=== PATIENT | female | born 1940 | race Caucasian/White ===

== ENCOUNTER → 2024-04-13 12:04 | Outpatient (REF) | payer MEDICARE, OTHER, SELFPAY | LOC: WOUND 12:04 | PROVIDERS: ATTENDING PHYSICIAN Surgery; FAMILY PHYSICIAN Physician Assistant | DX: L97.322 Non-pressure chronic ulcer of left ankle with fat layer exposed (principal); C44.709 Unspecified malignant neoplasm of skin of left lower limb, including hip; F03.90 Unspecified dementia, unspecified severity, without behavioral disturbance, psychotic disturbance, mood disturbance, and anxiety; N18.4 Chronic kidney disease, stage 4 (severe); D64.9 Anemia, unspecified; I50.32 Chronic diastolic (congestive) heart failure | CPT/HCPCS: 88305; 11104; 11105; 99203 ==

== ENCOUNTER → 2024-04-21 10:33 | Outpatient (REF) | payer MEDICARE, OTHER, SELFPAY | LOC: WOUND 10:33 | PROVIDERS: ATTENDING PHYSICIAN Surgery; FAMILY PHYSICIAN Physician Assistant | DX: L97.322 Non-pressure chronic ulcer of left ankle with fat layer exposed (principal); F03.90 Unspecified dementia, unspecified severity, without behavioral disturbance, psychotic disturbance, mood disturbance, and anxiety; D64.9 Anemia, unspecified; I50.32 Chronic diastolic (congestive) heart failure | CPT/HCPCS: 11042 ==

== ENCOUNTER → 2024-04-28 10:36 | Outpatient (REF) | payer MEDICARE, SELFPAY | LOC: WOUND 10:36 | PROVIDERS: ATTENDING PHYSICIAN Surgery; FAMILY PHYSICIAN Physician Assistant | DX: L97.322 Non-pressure chronic ulcer of left ankle with fat layer exposed (principal) | CPT/HCPCS: 99213 ==

== ENCOUNTER → 2024-05-05 10:36 | Outpatient (REF) | payer MEDICARE, SELFPAY | LOC: WOUND 10:36 | PROVIDERS: ATTENDING PHYSICIAN Surgery; FAMILY PHYSICIAN Physician Assistant | DX: L97.322 Non-pressure chronic ulcer of left ankle with fat layer exposed (principal); F03.90 Unspecified dementia, unspecified severity, without behavioral disturbance, psychotic disturbance, mood disturbance, and anxiety; N18.4 Chronic kidney disease, stage 4 (severe); D64.9 Anemia, unspecified; I50.32 Chronic diastolic (congestive) heart failure | CPT/HCPCS: 11042 ==

== ENCOUNTER → 2024-05-19 13:27 | Outpatient (REF) | payer MEDICARE, SELFPAY | LOC: WOUND 13:27 | PROVIDERS: ATTENDING PHYSICIAN Surgery; FAMILY PHYSICIAN Physician Assistant | DX: L97.322 Non-pressure chronic ulcer of left ankle with fat layer exposed (principal); F03.90 Unspecified dementia, unspecified severity, without behavioral disturbance, psychotic disturbance, mood disturbance, and anxiety; N18.4 Chronic kidney disease, stage 4 (severe); D64.9 Anemia, unspecified; I50.32 Chronic diastolic (congestive) heart failure | CPT/HCPCS: 99212 ==

== ENCOUNTER 2024-07-01 18:35 | Emergency (ER) | payer MEDICARE, SELFPAY ==
[2024-07-01 18:41] VITALS: BP 181/74
[2024-07-01 19:02] VITALS: BMI 29.5
--- NOTE | 2024-07-01 19:08 | EDRN ---
Pt here because she has trouble urinating which started 10 days ago. Pt got a urinary test kit and it 'Mariella showed up positive for uti.' Pt has not been to her doctor. No fever/chills/cough, abd pain, new back pain. Pt wears depends and was
incontinent of urine last night. This morning, says pt was 'soaking wet this morning.' Pt has urinated since 'maybe once, maybe just a little bit.'
[2024-07-01 19:59] LABS: % Basophils 0.6 % (0-2); % Eosinophils 3.1 % (0-6); % Immature Granulocytes 0.2 % (0-0.5); % Lymphocytes 15.7 % (20.5-51.1); % Neutrophils 68.4 % (42.2-75.2); Absolute Eosinophils 0.2 10^3/uL (0-0.7); Absolute Lymphocytes 0.9 10^3/uL (1.2-3.4); Absolute Monocytes 0.7 10^3/uL (0.1-0.6); Absolute Neutrophils 3.7 10^3/uL (1.4-6.5); Hematocrit 38.2 % (37.0-47.0); Hemoglobin 12.5 g/dL (12.0-16.0); Mean Corp Hgb Conc. 32.7 g/dL (33.0-37.0); Mean Corpuscular Hgb 33.1 pg (27.0-31.0); Mean Corpuscular Volume 101.1 fL (81.0-99.0); Nucleated Red Blood Cells % 0 %; Platelet Count 169 10^3/uL (130-400); Red Blood Cell Count 3.78 10^6/uL (4.20-5.40); Red Cell Dist. Width 14.6 % (11.5-14.5); White Blood Cell Count 5.4 10^3/uL (4.8-10.8)
[2024-07-01 20:14] VITALS: BP 187/73
[2024-07-01 20:14] LABS: Blood Urea Nitrogen 38 mg/dl (7-17); Calcium 9.4 mg/dl (8.4-10.2); Carbon Dioxide 29 mmol/L (22-30); Chloride 100 mmol/L (98-107); Estimated Creatinine Clearance 21 ml/min; Glucose 96 mg/dl (70-99); Sodium 138 mmol/L (135-145); eGFR 29.02
--- NOTE | 2024-07-01 20:21 | ED.GENMED ---
History of Present Illness
General
Chief Complaint: Urinary Symptoms
Source: patient and spouse
Exam Limitations: none
Time Seen by Provider: 07/01/24 18:50
Nursing documentation reviewed up to this point in time: agreed with
History of Present Illness
History of Present Illness:
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 reports patient woke
up incontinent and then this morning had some difficulty urinating. They are concerned about UTI. Has reports patient only was able to dribble small amounts even prior to arrival and they did a [id number] urine dipstick which was positive
for UTI. Patient reports she has not been able to fully urinate normally since this morning. She denies any fever chills nausea vomiting. Denies any abdominal pain or back pain.
Past History
Past History
ED Past Medical History: Arrthythmia (Afib), CHF, GERD and HTN
ED Past Surgical History: Appendectomy, Cardiac (Ablation), Gynecological (Hysterectomy) and Orthopedic (Bilateral knee replacement)
Social History
Tobacco: Former smoker
Alcohol: Occasional
Drug: None
Personal: Other (Seperated)
Living: alone
Employment: Not employed
Family History
Family History: CAD
Review of Systems
Review of Systems
Allergies reviewed?: Yes
Other source history: family
All Other Systems: ROS reviewed and negative except as documented in HPI and ROS
Constitutional: Reports no symptoms; Denies fever, fatigue or chills
Respiratory: Reports no symptoms
Cardiac: Reports no symptoms
ABD/GI: Reports no symptoms; Denies abdominal pain, nausea or vomiting
: Reports dysuria and difficulty voiding
Musculoskeletal: Reports no symptoms
Skin: Reports no symptoms
Neurological: Reports no symptoms
Psychiatric: Reports no symptoms
Phy Exam
General Physical Exam
General Presentation: no apparent distress
General age: appears stated age
General Skin: warm and dry
General Habitus: normal
General Mental: alert
General Hydration: appears well hydrated
Cardiovascular Exam
Cardiovascular Exam: regular rate/rhythm, no murmur and normal peripheral pulses
Pulmonary Exam
Pulmonary Exam: lungs clear and no respiratory distress
Neurological Exam
Neurological Exam: alert and oriented x3
Musculoskeletal Exam
Musculoskeletal Exam: full ROM
Skin Exam
Skin Exam: normal color and warm/dry
Psychiatric Exam
Psychiatric Exam: normal mood/affect
Course
Orders/Labs/Results
Orders:
Orders
07/01/24 19:16
IV Insert/Care/Rem.- Treatment PRN
07/01/24 19:20
Bladder Scan- Treatment ONCE
07/01/24 19:51
Basic Metabolic Panel Urgent
Complete Blood Count/With Diff Urgent
07/01/24 20:11
Xbgjd-[id number]-[id number] Urgent
Potassium Urgent
07/01/24 20:12
Urinalysis Reflex To Culture Urgent
Date Specimen was Collected: 07/01/24
Time Specimen was Collected: 20:10
Abnormal Lab Results
07/01/24
19:51
RBC 3.78 L 10^6/uL
(4.20-5.40)
MCV 101.1 H fL
(81.0-99.0)
MCH 33.1 H pg
(27.0-31.0)
MCHC 32.7 L g/dL
(33.0-37.0)
RDW 14.6 H %
(11.5-14.5)
MPV 11.0 H fL
(7.4-10.4)
Absolute Lymphs (auto) 0.9 L 10^3/uL
(1.2-3.4)
Absolute Monos (auto) 0.7 H 10^3/uL
(0.1-0.6)
Lymphocytes % 15.7 L %
(20.5-51.1)
Monocytes % 12.0 H %
(1.7-9.3)
BUN 38 H mg/dl
(7-17)
Creatinine 1.7 H mg/dL
(0.6-1.0)
07/01/24 19:51
Vital Signs
Initial and Last Documented VS:
Initial Vital Signs
Temp Pulse Resp BP Pulse Ox
98.6 F 50 20 181/74 96
07/01/24 18:41 07/01/24 18:41 07/01/24 18:41 07/01/24 18:41 07/01/24 18:41
Last Documented Vital Signs
Temp Pulse Resp BP Pulse Ox
98.6 F 54 16 187/73 92
07/01/24 18:41 07/01/24 20:14 07/01/24 20:14 07/01/24 20:14 07/01/24 20:14
MDM/Problems Addressed
MDM/Problems Addressed:
Patient complains of difficulty urinating today and had an outpatient [id number] urinalysis strip which tested positive for UTI. She denies any nausea vomiting abdominal pain back pain fever chills. She is in no acute distress and
well-appearing abdomen soft nontender. She does have a history of renal disease and does follow with a supervisor pressing department in [place]. Patient's creatinine is 1.7 which is slightly increased from prior labs here. Potassium is clotted will recheck.
She is afebrile with normal white count.
Urinalysis pending patient was straight cathed .
bladder scan showed 130 mL of you are not retaining.
Care of patient at this time transferred to Vipul Hardy NP
ED Attending Note
-
Portions of this chart may have been created with voice recognition software.� Occasional wrong word or��sound alike� substitutions may have occurred due to the inherent limitations of voice recognition software.
Discharge Plan
Departure
Prescriptions:
No Action
donepezil 5 MG tablet
5 mg PO DAILY
trazodone 50 MG tablet
50 mg PO HS
amiodarone [Pacerone] 200 MG tablet
100 mg PO DAILY 0RF
atorvastatin 40 mg Tablet
40 mg PO QPM
carvedilol 12.5 mg Tablet
12.5 mg PO BID
cyanocobalamin (vitamin B-12) 1,000 mcg/mL Solution
1,000 mcg SC QMONTH
furosemide 20 mg Tablet
20 mg PO DAILY
acetaminophen [Tylenol Extra Strength] 500 mg Capsule
500 mg PO BIDPRN PRN (Reason: pain)
solifenacin 10 mg Tablet
10 mg PO DAILY
carboxymethylcellulose sodium Drops
1 drp BOTH EYES QPM
ferrous sulfate 15 mg iron (75 mg)/mL Syringe
15 mg PO DAILY
Interventions
Interventions:
*Risk Screen - Suicide Last Done: 07/01/24 18:41
*General Assessment Last Done: 07/01/24 18:41
*Neglect/Abuse Screening Last Done: 07/01/24 18:41
*ED- Fall Risk Assessment Last Done: 07/01/24 19:02
*ED COVID-19 Vaccine History Last Done: 07/01/24 19:02
ED-Female Genitourinary Assessment Last Done: 07/01/24 19:20
Discharge Date and Time
Print Language: SLOVENIAN
[2024-07-01 20:23] LABS: Urine Albumin 2+ (Neg - Trace); Urine Bilirubin Negative (Negative); Urine Character Cloudy (Clear); Urine Color Yellow; Urine Glucose Negative (Negative); Urine Ketone Negative (Negative); Urine Leukocyte 3+ (Negative); Urine Nitrite Negative (Negative); Urine Occult Blood 3+ (Negative); Urine Specific Gravity 1.015 (<1.030); Urine Urobilinogen Negative (Neg - 1+)
[2024-07-01 20:42] LABS: Urine White Cell >100 /HPF (0-5)
[2024-07-01 21:00] VITALS: BP 169/61
[2024-07-01 21:03] LABS: ALT (SGPT) 11 U/L (0-35); AST (SGOT) 18 U/L (14-36); Albumin 3.6 g/dl (3.5-5.0); Alkaline Phosphatase 87 U/L (38-126); Direct Bilirubin 0.3 mg/dl (0.0-0.4); Potassium 3.9 mmol/L (3.5-5.1); Total Bilirubin 0.5 mg/dl (0.2-1.3)
[2024-07-01] MEDS: KEFLEX 500 MG PO (21:28)
== END 2024-07-01 21:42 | disposition home or self-care (01) ==
LOC: EMR 18:35
PROVIDERS: Nurse Practitioner; EMERGENCY PHYSICIAN Emergency Medicine; FAMILY PHYSICIAN Family Medicine
DX: N39.0 Urinary tract infection, site not specified (principal); I13.0 Hypertensive heart and chronic kidney disease with heart failure and stage 1 through stage 4 chronic kidney disease, or unspecified chronic kidney disease; I50.9 Heart failure, unspecified; N18.9 Chronic kidney disease, unspecified; I48.91 Unspecified atrial fibrillation; Z87.891 Personal history of nicotine dependence; Z90.49 Acquired absence of other specified parts of digestive tract
CPT/HCPCS: 99283; 80048; 80076; 81003; 81015; 84132; 85025; 87077; 87086

== ENCOUNTER 2024-07-08 15:32 | Observation (INO) | payer MEDICARE, SELFPAY ==
[2024-07-08] VITALS (15 sets, daily range): BP systolic 120–212; BP diastolic 60–106; PULSE 48–59; BMI 26.9
--- NOTE | 2024-07-08 13:40 | ED.GENMED ---
History of Present Illness
General
Chief Complaint: Fainting/Passed Out
Source: patient
Time Seen by Provider: 07/08/24 13:30
History of Present Illness
History of Present Illness:
84-year-old female with past medical history of atrial fibrillation, CHF, CAD, known valvular disease, previous breast cancer, GERD presenting to the emergency department for evaluation of suspected syncopal episode or near syncopal episode that
occurred at home earlier today. Patient states that she does not recollect the event, unsure if she is ever passed out before but currently has no concerns other than states she feels very sleepy. Patient states that she has been on antibiotic for
the last 6 days but is not sure for what, based off of record review patient was just here 1 week ago and diagnosed with a urinary tract infection with known mild chronic kidney disease. Patient is denying any vomiting, bowel changes, current
urinary symptoms, chest pain or shortness of breath, headaches, visual disturbances, focal weakness or numbness.
Past History
Past History
ED Past Medical History: Arrthythmia (Afib), CAD, Cancer, CHF, CVA, GERD, HTN, Renal failure and Valvular disease
ED Past Surgical History: Appendectomy, Cardiac (Ablation), Gynecological (Hysterectomy) and Orthopedic (Bilateral knee replacement)
Social History
Tobacco: Former smoker
Alcohol: Occasional
Drug: None
Personal: (Seperated)
Living: with family
Employment: Not employed
Family History
Family History: CAD
Review of Systems
Review of Systems
All Other Systems: ROS reviewed and negative except as documented in HPI and ROS
Phy Exam
Physical Exam
Physical Exam:
GENERAL: Alert , in no apparent distress, Smiling and pleasant but does seem slightly confused
EYE: pupils equal and reactive, clear conjunctiva
NECK: Supple
ENT: o/p clr, mmm.
CARDIAC: Regular rate and rhythm, systolic murmur left sternal border.
LUNGS: Clear breath sounds bilaterally, no acute respiratory distress, no wheezes/rales/rhonchi
ABDOMEN: Soft, without focal tenderness, no r/g, no cvat
NEUROLOGICAL: Alert and oriented, no focal neuro deficits
SKIN: Warm and dry, skin intact.
MUSCULOSKELETAL: No edema, venous stasis skin hyperpigmentation
PSYCH: Normal and appropriate interaction.
Scores
Heart Failure Risk
Heart Failure Risk Score: Not Applicable
Heart Score for Chest Pain Patients
STEMI patient?: Not applicable
Withdrawal Assessment of Alcohol
Withdrawal Assessment Completed?: Not applicable
Course
Orders/Labs/Results
Orders:
Orders
07/08/24 13:31
EKG [Electrocardiogram (*1)] Urgent
Reason for Study: Syncope
EKG- Treatment ONCE
07/08/24 13:38
Orthostatic VS- Treatment ONCE
07/08/24 13:39
CT Head W/o Iv Contrast Urgent
Comment:
Reason For Exam: syncope, questionable head injury
07/08/24 13:46
Complete Blood Count/With Diff Urgent
Comprehensive Metabolic Panel Urgent
Magnesium Urgent
NT-proBNP Urgent
Troponin I Urgent
07/08/24 Dinner
Cholesterol Lowering
At Your Request: Limited, Terrazzo Grinder Required
Fluid Restriction: 1800 mL/day (60 oz)
Cholesterol Lowering: Sodium, 2 Gram
07/08/24 15:08
Code Status As Directed
Resuscitation Status: Do not resuscitate
Reached after discussion with pt or family/Healthcare POA: Yes
Bisacodyl [Dulcolax] 10 mg RECTAL [id number] PRN
Docusate W/Senna [Senokot-S] 1 tablet PO BIDPRN PRN
Polyethylene Glycol Powder [Miralax] 17 grams PO DAILYPRN PRN
Activity As Directed
Activity Level: As Tolerated
With Assistance
Intake/ Output As Directed
Frequency: Per unit guidelines
Vital Signs As Directed
Frequency: Per unit guidelines
Weight As Directed
Frequency: Daily
07/08/24 15:09
DNR Bracelet Application ONCE
07/08/24 15:10
DX Deep Vein Thrombosis Video Routine
07/08/24 15:13
Admit/Transfer Patient As Directed
Co-Sign Provider:
Level of Care: Observation services
Assign to:: Telemetry
Physician / Group: Hospitalist: Leonarda
Diagnosis: Syncope
Reason for Telemetry: Syncope
Date to Stop Telemetry: 07/10/24
Time to Stop Telemetry: 11:00
PRN Pain Medication Management As Directed
May give lesser potent ordered pain med per pt: Yes
preference::
Protocol:: Medication orders for pain may be administered in a
manner that supports deferring to patient preference
when the pt is:
- Requesting an ordered lesser potent pain medication.
Least to most potent pain medications are defined
as: acetaminophen < NSAID < tramadol < opioids
(morphine, oxycodone, hydromorphone).
- Requesting a lesser dose of the same medication IF
ORDERED.
- Requesting a less intrusive route of administration
if both routes are prescribed by the provider (PO <
IV).
07/08/24 15:19
CARDIOLOGY CONSULT Routine
Consulting Provider: Eddie Fang
Was physician already notified: Yes
Reason for consult: syncope
07/08/24 15:24
Furosemide [Lasix] 20 mg IV ONCE ONE
07/08/24 15:26
Echo 2D MMode Color/Doppler Routine
Reason for Study: syncope
HydrALAZINE [Apresoline] 10 mg IV Q6HPRN PRN
07/08/24 16:00
Heparin 5,000 units SC Q8
07/09/24 06:00
Basic Metabolic Panel IN AM
Complete Blood Count/With Diff IN AM
07/10/24 11:00
DC Protocol for Telemetry ONCE
Abnormal Lab Results
07/08/24
13:46
RBC 3.50 L 10^6/uL
(4.20-5.40)
Hgb 11.9 L g/dL
(12.0-16.0)
Hct 35.5 L %
(37.0-47.0)
MCV 101.4 H fL
(81.0-99.0)
MCH 34.0 H pg
(27.0-31.0)
RDW 14.6 H %
(11.5-14.5)
MPV 10.5 H fL
(7.4-10.4)
Absolute Lymphs (auto) 1.0 L 10^3/uL
(1.2-3.4)
Absolute Monos (auto) 0.7 H 10^3/uL
(0.1-0.6)
Immature Gran % 0.6 H %
(0-0.5)
Lymphocytes % 18.9 L %
(20.5-51.1)
Monocytes % 12.6 H %
(1.7-9.3)
Carbon Dioxide 32 H mmol/L
(22-30)
BUN 29 H mg/dl
(7-17)
Creatinine 1.4 H mg/dL
(0.6-1.0)
07/08/24 13:46
07/08/24 13:46
Vital Signs
Initial and Last Documented VS:
Initial Vital Signs
Pulse Resp BP Pulse Ox
50 16 185/77 91
07/08/24 13:33 07/08/24 13:33 07/08/24 13:33 07/08/24 13:33
Last Documented Vital Signs
Temp Pulse Resp BP Pulse Ox
97.6 F 51 12 212/69 96
07/08/24 13:40 07/08/24 15:30 07/08/24 15:30 07/08/24 15:30 07/08/24 15:30
MDM/Problems Addressed
Differential Diagnosis Includes:
Orthostasis, vagal event, cardiac dysrhythmia, electrolyte derangement, worsening renal function, medication side effects
MDM/Problems Addressed:
84-year-old female presenting to the emergency department for evaluation of reported syncopal episode versus near syncopal episode earlier today. Patient without any specific concerns here, unable to recall the events leading up to the syncope but
states otherwise feels well currently. Patient is hemodynamically stable and in no acute distress. Will check labs, CT of the head, keep patient on telemetry. Given her age combined with chronic medical conditions and presenting symptoms will
admit for further evaluation and telemetry as well as cardiac consultation.
Chronic conditions affecting care: CAD and Arrhythmia
*Radiology
Radiology exam reviewed: radiology read reviewed
*Pulse Oximetry
Patient hypoxic: no
*EKG
Heart Rate: 50
Rate: bradycardiac
Rhythm: sinus
Interval: long QT
Ischemia: no ischemia
*Razor Grinder Interpretation
Rate: bradycardiac
Rhythm: sinus
*Critical Care Note
Total Time (30-74mins, 75-104mins- exclusive of procedures): Not Applicable
Data Reviewed
Review of Other/Old Records Reveals: Labs and Records
Patient Management
Discussion with other providers: Hospitalist
Escalation/DeEscalation of care consider admission/obs:
Patient remains hemodynamically stable. Labs reveal a very mild anemia. Patient's creatinine improved from 1 week ago. BNP elevated however appears to be right around patient's baseline. CT of the head shows age-related changes. Given her age
combined with chronic medical condition as well as her chronic medications and presenting symptom of syncope we will plan for admission for continued telemetry and cardiac consultation. Hospitalist team aware and accepts for continued evaluation
and treatment
ED Attending Note
-
Portions of this chart may have been created with voice recognition software.� Occasional wrong word or��sound alike� substitutions may have occurred due to the inherent limitations of voice recognition software.
Discharge Plan
Departure
Patient Disposition: Admit
Date of Disposition: 07/08/24
Time of Disposition: 14:23
Presentation/result/management discussed w/ accepting MD/DO: Hospitalist
Discharge Problem:
Syncope, Long QT interval, CKD (chronic kidney disease)
Interventions
Interventions:
*Risk Screen - Suicide Last Done: 07/08/24 13:42
*General Assessment Last Done: 07/08/24 13:42
*Neglect/Abuse Screening Last Done: 07/08/24 13:42
*ED COVID-19 Vaccine History Last Done: 07/08/24 13:44
[2024-07-08 13:53] LABS: % Basophils 0.6 % (0-2); % Eosinophils 3.7 % (0-6); % Immature Granulocytes 0.6 % (0-0.5); % Lymphocytes 18.9 % (20.5-51.1); % Monocytes 12.6 % (1.7-9.3); % Neutrophils 63.6 % (42.2-75.2); Absolute Eosinophils 0.2 10^3/uL (0-0.7); Absolute Monocytes 0.7 10^3/uL (0.1-0.6); Absolute Neutrophils 3.3 10^3/uL (1.4-6.5); Hematocrit 35.5 % (37.0-47.0); Hemoglobin 11.9 g/dL (12.0-16.0); Mean Corp Hgb Conc. 33.5 g/dL (33.0-37.0); Mean Corpuscular Volume 101.4 fL (81.0-99.0); Mean Platelet Volume 10.5 fL (7.4-10.4); Nucleated Red Blood Cells % 0 %; Platelet Count 147 10^3/uL (130-400); Red Cell Dist. Width 14.6 % (11.5-14.5); White Blood Cell Count 5.1 10^3/uL (4.8-10.8)
[2024-07-08 14:07] LABS: ALT (SGPT) 11 U/L (0-35); AST (SGOT) 20 U/L (14-36); Albumin 3.8 g/dl (3.5-5.0); Alkaline Phosphatase 66 U/L (38-126); Blood Urea Nitrogen 29 mg/dl (7-17); Calcium 9.2 mg/dl (8.4-10.2); Carbon Dioxide 32 mmol/L (22-30); Chloride 102 mmol/L (98-107); Estimated Creatinine Clearance 22 ml/min; Glucose 97 mg/dl (70-99); Magnesium 2.2 mg/dl (1.6-2.3); Potassium 3.9 mmol/L (3.5-5.1); Sodium 143 mmol/L (135-145); Total Bilirubin 0.6 mg/dl (0.2-1.3); Total Protein 6.4 g/dl (6.3-8.2); eGFR 36.64
[2024-07-08 14:17] LABS: NT-proBNP 4230 pg/ml; Troponin I < 0.012 ng/ml
--- NOTE | 2024-07-08 15:27 | HPS.HSE ---
Family Physician
-
Family Physician: Anshu Kate
Chief Complaint
-
Syncope
History of Present Illness
Ms. Murray is an 84-year-old female with a medical history of paroxysmal A-fib (status post ablation, on amiodarone, not on anticoagulation), subdural hematoma (10/2020), CKD stage IV, breast cancer (right sided, status post radiation and chemo
2000), combined systolic and diastolic heart failure, chronic lower extremity edema, dementia, and recent urinary tract infection (seen in [place] ED 07/01/2024, discharged on 7 days of Keflex) who presents after a possible syncopal episode at
home. HPI was supplemented by the patient's who is at bedside. He reports that the patient was unusually difficult to arouse from her lounge chair at lunchtime. He is not sure how long she was unconscious but reports that she sat down in
her chair after exercising on her stationary bike this morning and then showering. The patient does not recall what happened after she sat down in her chair, but reports awaking to EMS questioning her. She denies headache, blurry vision,
dizziness, trouble breathing, or chest pain. She is currently back to her baseline mental status.
In the ED, she was mildly bradycardic with a heart rate around 50, hypertensive with initial BP of 185/77, and saturating around 92% on room air. EKG shows sinus bradycardia with first-degree AV block and prolonged QTc. Labs were significant for
mild anemia with a hemoglobin of 11.9 and MCV 101 which clears close to her baseline, creatinine of 1.4 which appears close to her baseline, and undetectable troponin, and a BNP of 4230. CT imaging of her head shows no acute pathology but does show
severe chronic neurodegenerative disease consistent with probable Alzheimer's dementia. She is being admitted for further evaluation and management of suspected syncope.
Medical History
Past Medical History
Past Medical History: Reports Arrhythmia (A-fib status post ablation, not on anticoagulation), Cancer (Right-sided breast cancer), CHF (Combined systolic and diastolic heart failure), CVA (Subdural hematoma status postcraniotomy) and Renal Failure
(CKD stage IV)
Past Surgical History: Reports Brain (Craniotomy) and Orthopedic (Bilateral knee replacements)
Social History
Unable to obtain full social history at this time due to: Dementia
Tobacco: Non-smoker
Alcohol: None
Drug: None
Personal:
Living: With Family
Family History
Family History: Not pertinent
Allergies / Home Medications
Allergies reflects when Allergies were last updated in [facility].
Home Medications with original date entered in [facility]
Allergy/Medication List:
Allergies
Allergy/AdvReac Type Severity Reaction Status Date / Time
Sulfa (Sulfonamide Allergy Unknown hives Verified 07/01/24 18:44
Antibiotics)
amlodipine [From [facility]] Allergy Swelling Verified 07/01/24 18:44
prednisone [Prednisone] Allergy eye Verified 07/01/24 18:44
swelling
mold Allergy Swelling Uncoded 07/01/24 18:44
pollen, trees Allergy vertigo, Uncoded 07/01/24 18:44
tired
Home Medications
donepezil 5 mg tablet 5 mg PO DAILY Neurological Condition 06/19/20
trazodone 50 mg tablet 50 mg PO HS 06/19/20
amiodarone 200 mg tablet (Pacerone) 100 mg (1/2 x 200 mg) PO DAILY 06/21/20
acetaminophen 500 mg capsule 500 mg PO BID 07/01/24
atorvastatin 40 mg tablet 40 mg PO QPM 07/01/24
carboxymethylcellulose sodium 1 drp BOTH EYES QPM 07/01/24
carvedilol 12.5 mg tablet 12.5 mg PO BID 07/01/24
cephalexin 500 mg capsule 500 mg PO BID 7 days #14 caps 07/01/24
cyanocobalamin (vitamin B-12) 1,000 mcg/mL injection solution 1,000 mcg SC QMONTH 07/01/24
furosemide 20 mg tablet 20 mg PO DAILY 07/01/24
solifenacin 10 mg tablet 10 mg PO DAILY 07/01/24
gabapentin 300 mg capsule 300 mg PO HS 07/08/24
iron succinyl-protein complex 40 mg/15 mL oral liquid (Ferrevenkatas IPS) 40 mg PO Q48H 07/08/24
Review of Systems
-
History Source: Patient
A 12 point ROS was completed and negative except as noted: Yes
Musculoskeletal: Reports Edema (Bilateral lower extremities)
Physical Exam
Vital Signs
Vital Signs
Temp Pulse Resp BP Pulse Ox
97.6 F 52 14 185/77 92
07/08/24 13:40 07/08/24 13:40 07/08/24 13:40 07/08/24 13:33 07/08/24 13:40
Physical Exam
General: No Apparent Distress
Laboratory Results
-
07/08/24 13:46
07/08/24 13:46
Laboratory Results
Total Bilirubin 0.6 mg/dl (0.2-1.3) 07/08/24 13:46
AST 20 U/L (14-36) 07/08/24 13:46
ALT 11 U/L (0-35) 07/08/24 13:46
Alkaline Phosphatase 66 U/L (38-126) 07/08/24 13:46
Troponin I < 0.012 ng/ml 07/08/24 13:46
Impression/Plan
-
General: No Apparent Distress, Comfortable and Conversant
HEENT: Moist mucous membranes, sclera anicteric
Respiratory: Clear and Non Labored Respirations
Cardiac: S1/S2 and Regular Rhythm; heart rate around 50, no Rub or Gallop
GI: Soft, Non Tender, Non Distended and Normal Bowel Sounds
Musculoskeletal: Bilateral lower extremity edema, no deformity
Skin: Warm and dry
: Pure wick in place
Neuro: Awake, Alert, Nonfocal/grossly intact
Psych: Calm and cooperative
Ms. Murray is an 84-year-old female with a medical history of paroxysmal A-fib (status post ablation, on amiodarone, not on anticoagulation), subdural hematoma (10/2020), CKD stage IV, breast cancer (right sided, status post radiation and chemo
2000), combined systolic and diastolic heart failure, chronic lower extremity edema, dementia, and recent urinary tract infection (seen in [place] ED 07/01/2024, discharged on 7 days of Keflex) who presents after a possible syncopal episode at
home. HPI was supplemented by the patient's who is at bedside. He reports that the patient was unusually difficult to arouse from her lounge chair at lunchtime. He is not sure how long she was unconscious but reports that she sat down in
her chair after exercising on her stationary bike this morning and then showering. The patient does not recall what happened after she sat down in her chair, but reports awaking to EMS questioning her. She denies headache, blurry vision,
dizziness, trouble breathing, or chest pain. She is currently back to her baseline mental status and says she feels hungry since she missed lunch.
In the ED, she was mildly bradycardic with a heart rate around 50, hypertensive with initial BP of 185/77, and saturating around 92% on room air. EKG shows sinus bradycardia with first-degree AV block and prolonged QTc. Labs were significant for
mild anemia with a hemoglobin of 11.9 and MCV 101 which clears close to her baseline, creatinine of 1.4 which appears close to her baseline, and undetectable troponin, and a BNP of 4230. CT imaging of her head shows no acute pathology but does show
severe chronic neurodegenerative disease consistent with probable Alzheimer's dementia. She is being admitted for further evaluation and management of suspected syncope.
Suspected syncope:
- Unclear if this was actually a syncopal event, as she was found unresponsive in her lounge chair and very difficult to arouse, and reported baseline mental status after waking, patient does not remember what happened after sitting in her chair
- She is mildly bradycardic, will hold carvedilol for now, continue amiodarone
- Continue telemetry monitoring
- Echocardiogram
- Blood pressure control, does not appear to be on antihypertensive regimen other than carvedilol, also on Lasix for heart failure
- Appreciate cardiology evaluation
Hypertensive emergency:
-Presented with possible syncopal event, blood pressure currently uncontrolled
- Not on antihypertensive regimen at home other than carvedilol which we are holding for mild bradycardia
- Will give a dose of IV hydralazine and add scheduled p.o. hydralazine, continue additional IV hydralazine as needed for SBP greater than 170
- Appreciate cardiology input
Combined systolic and diastolic heart failure:
- Acute on chronic
- Does appear volume overloaded, will give a dose of IV Lasix monitor response
- Monitor I's and O's and daily weights
- Currently holding beta-blockade due to mild bradycardia, can restart home carvedilol as able
- Afterload reduction with hydralazine which is being started at the time of this admission, does not appear to be on afterload reducing agents as outpatient
- Check echocardiogram
- Further recommendations per cardiology
Paroxysmal A-fib:
- Continue home amiodarone, holding beta-trinidad due to mild bradycardia
- Not on anticoagulation due to history of subdural hematoma
DVT prophylaxis: Subcu heparin
CODE STATUS: DNR, confirmed with patient and her
[2024-07-08] MEDS: APRESOLINE 10 MG IV (16:25)
[2024-07-08] MEDS: APRESOLINE PO (18:55)
[2024-07-08] MEDS: HEPARIN SC (18:55)
[2024-07-08] MEDS: LASIX 40 MG IV (20:12)
[2024-07-08] MEDS: APRESOLINE 25 MG PO (21:05)
[2024-07-08] MEDS: TYLENOL 500 MG PO (21:05)
[2024-07-08] MEDS: KEFLEX 500 MG PO (21:05)
[2024-07-08] MEDS: LIPITOR 40 MG PO (21:05)
[2024-07-08] MEDS: NEURONTIN 300 MG PO (21:05)
[2024-07-08] MEDS: DESYREL 50 MG PO (21:05)
[2024-07-08] MEDS: HEPARIN 5000 UNITS SC (23:57)
[2024-07-09] VITALS (9 sets, daily range): BP systolic 101–207; BP diastolic 45–92; PULSE 56; O2SAT 94
[2024-07-09] MEDS: REFRESH CELLUVISC GEL BOTH EYES (06:11)
[2024-07-09 07:32] LABS: % Basophils 0.6 % (0-2); % Eosinophils 3.7 % (0-6); % Immature Granulocytes 0.6 % (0-0.5); % Lymphocytes 12.7 % (20.5-51.1); % Neutrophils 70.4 % (42.2-75.2); Absolute Eosinophils 0.2 10^3/uL (0-0.7); Absolute Lymphocytes 0.7 10^3/uL (1.2-3.4); Absolute Monocytes 0.6 10^3/uL (0.1-0.6); Absolute Neutrophils 3.6 10^3/uL (1.4-6.5); Hematocrit 38.3 % (37.0-47.0); Hemoglobin 12.4 g/dL (12.0-16.0); Mean Corp Hgb Conc. 32.4 g/dL (33.0-37.0); Mean Corpuscular Hgb 32.9 pg (27.0-31.0); Mean Corpuscular Volume 101.6 fL (81.0-99.0); Mean Platelet Volume 10.5 fL (7.4-10.4); Nucleated Red Blood Cells % 0 %; Platelet Count 158 10^3/uL (130-400); Red Blood Cell Count 3.77 10^6/uL (4.20-5.40); Red Cell Dist. Width 14.6 % (11.5-14.5); White Blood Cell Count 5.1 10^3/uL (4.8-10.8)
[2024-07-09] MEDS: TYLENOL 500 MG PO ×2 (07:59→19:33)
[2024-07-09] MEDS: DETROL LA 4 MG PO (07:59)
[2024-07-09] MEDS: APRESOLINE 25 MG PO ×3 (08:00→21:08)
[2024-07-09] MEDS: PACERONE 100 MG PO (08:00)
[2024-07-09] MEDS: HEPARIN 5000 UNITS SC ×3 (08:00→23:13)
[2024-07-09] MEDS: KEFLEX 500 MG PO ×2 (08:00→19:34)
[2024-07-09] MEDS: APRESOLINE 10 MG IV (08:01)
[2024-07-09 08:21] LABS: Blood Urea Nitrogen 28 mg/dl (7-17); Calcium 9.1 mg/dl (8.4-10.2); Carbon Dioxide 33 mmol/L (22-30); Chloride 101 mmol/L (98-107); Estimated Creatinine Clearance 24 ml/min; Glucose 61 mg/dl (70-99); Potassium 3.3 mmol/L (3.5-5.1); Sodium 144 mmol/L (135-145); eGFR 40.05
--- NOTE | 2024-07-09 13:17 | CON.CAR ---
Consultation
Consultation Request
Date/Time Consultation Requested: 07/08/24
Date/Time Consultation Performed: 07/09/24
Requesting Provider: Leonarda
Performing Provider: Annalisa
Reason for Consultation: syncope
Medical History
-
Chief Complaint: syncope
History of Present Illness:
History largely obtained by chart review. Reportedly was resting at home in a lounge chair but she was unable to be aroused and therefore EMS was called. She did regain consciousness and was brought to [place] emergency department. Cardiology
is consulted for possible syncope.
Today patient tells me she feels well. Is resting comfortably in bed. Not offering any cardiac complaints. No lightheadedness, dizziness or syncope. And no dyspnea/orthopnea/PND or lower extremity edema.
Of note she has been persistently bradycardic here for which her home beta-trinidad was held. Also has been quite hypertensive.
PMHx/PSHx:
HFmrEF
A-fib status post ablation, not on anticoagulation
CVA (Subdural hematoma status postcraniotomy)
CKD stage IV
Dementia
Right-sided breast cancer
Bilateral knee replacements
Past Medical History
Past Medical History: Other (as above)
Past Surgical History: Other (as above)
Social History
Tobacco: Non-Smoker
Personal:
Family History
Family History: Reviewed & Not Pertinent
Allergies / Home Medications
Allergy/AdvReac Type Severity Reaction Status Date / Time
Sulfa (Sulfonamide Allergy Unknown hives Verified 07/01/24 18:44
Antibiotics)
amlodipine [From Norvasc] Allergy Swelling Verified 07/01/24 18:44
prednisone [Prednisone] Allergy eye Verified 07/01/24 18:44
swelling
mold Allergy Swelling Uncoded 07/01/24 18:44
pollen, trees Allergy vertigo, Uncoded 07/01/24 18:44
tired
�Medication �Instructions �Recorded �Confirmed �Type
donepezil 5 mg tablet 5 mg PO DAILY Neurological 06/19/20 07/08/24 History
Condition
trazodone 50 mg tablet 50 mg PO HS 06/19/20 07/08/24 History
amiodarone 200 mg tablet (Pacerone) 100 mg (1/2 x 200 mg) PO DAILY 06/21/20 07/08/24 Rx
acetaminophen 500 mg capsule 500 mg PO BID 07/01/24 07/08/24 History
atorvastatin 40 mg tablet 40 mg PO QPM 07/01/24 07/08/24 History
carboxymethylcellulose sodium 1 drp BOTH EYES QPM 07/01/24 07/08/24 History
carvedilol 12.5 mg tablet 12.5 mg PO BID 07/01/24 07/08/24 History
cephalexin 500 mg capsule 500 mg PO BID 7 days #14 caps 07/01/24 07/08/24 Rx
cyanocobalamin (vitamin B-12) 1,000 mcg SC QMONTH 07/01/24 07/08/24 History
1,000 mcg/mL injection solution
furosemide 20 mg tablet 20 mg PO DAILY 07/01/24 07/08/24 History
solifenacin 10 mg tablet 10 mg PO DAILY 07/01/24 07/08/24 History
gabapentin 300 mg capsule 300 mg PO HS 07/08/24 07/08/24 History
iron succinyl-protein complex 40 40 mg PO Q48H 07/08/24 07/08/24 History
mg/15 mL oral liquid (Ferretts IPS)
Review of Systems
-
Unable to obtain full review of systems at this time due to: Dementia
History Source: Patient
All other systems: Negative unless noted
Physical Exam
Vital Signs
Temp Pulse Resp BP Pulse Ox
97.2 F 52 20 127/56 92
07/09/24 11:00 07/09/24 11:00 07/09/24 11:00 07/09/24 11:00 07/09/24 11:00
Lab Results
07/09/24 06:11
07/09/24 06:11
Troponin I < 0.012 ng/ml 07/08/24 13:46
Ufr-R-Ehacftxgzjv Pept 4230 pg/ml 07/08/24 13:46
Physical Exam
General: Well Developed
HEENT: Normocephalic
Respiratory: Clear
Cardiac: S1/S2 and Regular Rhythm
Breast: Deferred by me
GI: Soft
Musculoskeletal: No Edema
Skin: Warm and Dry
Neuro: Awake and Alert
Psych: Calm
Impression / Plan
-
Chrome Worker: Eugenia, last seen in 2021
Assessment:
? syncope
HFmrEF, chronic
HTN
bradycardia
A-fib status post ablation, not on anticoagulation
CVA (Subdural hematoma status postcraniotomy)
CKD stage IV
Dementia
Plan:
Possible syncope:
- Unclear to me based on the history provided by the patient and chart review if she did indeed experience a syncopal episode
- Monitor on telemetry here for sustained arrhythmias or high-grade AV block. Has been sinus bradycardia by my review. Agree with holding beta-trinidad. Could consider outpatient monitor at time of discharge.
- Check echo in a.m. to assess for worsening cardiomyopathy or valvular pathology
- Would limit medications that could alter her sensorium such as trazadone and solifenacin
HFmrEF, chronic:
- Elevated proBNP is noted, but does not appear overtly volume overloaded on exam
- Would continue home PO lasix 20mg daily
- Agree with holding BB for bradycardia
- Given severely elevated BP would add losartan and monitor renal function closely
- Agree with continuing hydralazine for afterload reduction
AFib:
-Maintaining sinus rhythm
-Cont low dose amiodarone
-Not chronically anti-coagulated
Data Reviewed
-
EKG: Tracing Personally Visualized and interpreted
Medical Tests (Nuc Med, Echo etc): Report Reviewed by me
Labs: Labs Reviewed by me
Old Records: Reviewed
--- NOTE | 2024-07-09 14:39 | W.PN.HOSP.TC ---
Today's Communication/Plan
-
Assessment / Plan
Assessment / Plan
General: No Apparent Distress, Comfortable and Conversant
HEENT: Moist mucous membranes, sclera anicteric
Respiratory: Clear and Non Labored Respirations
Cardiac: S1/S2 and Regular Rhythm; heart rate around 60, no Rub or Gallop
GI: Soft, Non Tender, Non Distended and Normal Bowel Sounds
Musculoskeletal: Bilateral lower extremity edema, no deformity
Skin: Warm and dry
: Pure wick in place
Neuro: Awake, Alert, Nonfocal/grossly intact
Psych: Calm and cooperative
Ms. Murray is an 84-year-old female with a medical history of paroxysmal A-fib (status post ablation, on amiodarone, not on anticoagulation), subdural hematoma (10/2020), CKD stage IV, breast cancer (right sided, status post radiation and chemo
2000), combined systolic and diastolic heart failure, chronic lower extremity edema, dementia, and recent urinary tract infection (seen in [place] ED 07/01/2024, discharged on 7 days of Keflex) who presents after a possible syncopal episode at
home. HPI was supplemented by the patient's who is at bedside. He reports that the patient was unusually difficult to arouse from her lounge chair at lunchtime. He is not sure how long she was unconscious but reports that she sat down in
her chair after exercising on her stationary bike this morning and then showering. The patient does not recall what happened after she sat down in her chair, but reports awaking to EMS questioning her. She denies headache, blurry vision,
dizziness, trouble breathing, or chest pain. She is currently back to her baseline mental status and says she feels hungry since she missed lunch.
In the ED, she was mildly bradycardic with a heart rate around 50, hypertensive with initial BP of 185/77, and saturating around 92% on room air. EKG shows sinus bradycardia with first-degree AV block and prolonged QTc. Labs were significant for
mild anemia with a hemoglobin of 11.9 and MCV 101 which clears close to her baseline, creatinine of 1.4 which appears close to her baseline, and undetectable troponin, and a BNP of 4230. CT imaging of her head shows no acute pathology but does show
severe chronic neurodegenerative disease consistent with probable Alzheimer's dementia. She was admitted for further evaluation and management of suspected syncope.
Suspected syncope:
- Unclear if this was actually a syncopal event, as she was found unresponsive in her lounge chair and very difficult to arouse, and reported baseline mental status after waking, patient does not remember what happened after sitting in her chair
- CT brain shows no acute abnormalities but does show severe chronic neurodegenerative disease (probably Alzheimer's dementia)
- Continue holding home carvedilol due to mild bradycardia
- Need to optimize blood pressure control, does not appear to be on antihypertensive regimen other than carvedilol, also on Lasix for heart failure
-Cardiology following, recommend adding losartan to hydralazine that was started at the time of this admission
- Continue telemetry monitoring
- Echocardiogram pending
Hypertensive emergency:
- Presented with possible syncopal event, blood pressure still not well-controlled
- Not on antihypertensive regimen at home other than carvedilol which we are holding for mild bradycardia
- Started low-dose hydralazine at time of admission, adding losartan today 07/09
- Continue additional IV hydralazine as needed for SBP greater than 170
- Appreciate cardiology input
Combined systolic and diastolic heart failure:
- Acute on chronic
- Did appear mildly volume overloaded at time of admission, gave 1 dose of IV Lasix 40 mg at time of admission
- Volume status improved today, will continue home regimen of Lasix 20 mg p.o. daily
- Currently holding beta-blockade due to mild bradycardia, can restart home carvedilol as able
- Afterload reduction with hydralazine which was started at the time of this admission, losartan added today per cardiology recommendations
- Echocardiogram pending
- Further recommendations per cardiology
Paroxysmal A-fib:
- Continue home amiodarone, holding beta-trinidad due to mild bradycardia
- Not on anticoagulation due to history of subdural hematoma
DVT prophylaxis: Subcu heparin
CODE STATUS: DNR, confirmed with patient and her
Anticipated Discharge: 24 - 48 hours
Subjective/Interval History
-
Date of Service: July 09, 2024
Patient was seen and examined at bedside this morning. No syncopal events since admission. Generally feeling well. Labs are unremarkable but she was significantly hypertensive this morning with a BP of 207/92. Received a push dose of IV
hydralazine in addition to her scheduled dose of p.o. hydralazine 25 mg this morning with improvement in her blood pressure.
Objective Data
-
Labs:
Laboratory Results
07/09/24
06:11
WBC 5.1
Hgb 12.4
Hct 38.3
Plt Count 158
Sodium 144
Potassium 3.3 L
Chloride 101
Carbon Dioxide 33 H
BUN 28 H
Creatinine 1.3 H
Glucose 61 L
Calcium 9.1
Vital Signs:
Vital Signs
Temp Pulse Resp BP Pulse Ox
97.2 F 52 20 127/56 92
07/09/24 11:00 07/09/24 11:00 07/09/24 11:00 07/09/24 11:00 07/09/24 11:00
I&O
07/08/24 07/09/24 07/10/24
06:59 06:59 06:59
Intake Total 240 / 240
Output Total 1900 / 1900
Balance -1660 / -1660
Review of Systems
-
History Source: Patient
All other systems: Reviewed and negative
Physical Exam
-
General: No Apparent Distress
[2024-07-09] MEDS: KLOR-CON 40 MEQ PO (15:39)
[2024-07-09] MEDS: LIPITOR 40 MG PO (18:05)
[2024-07-09] MEDS: REFRESH CELLUVISC GEL 1 DROPS BOTH EYES (18:05)
[2024-07-09] MEDS: DESYREL 50 MG PO (21:08)
[2024-07-09] MEDS: NEURONTIN 300 MG PO (21:08)
[2024-07-10 03:32] VITALS: BP 121/73
[2024-07-10 07:00] VITALS: BP 190/77
[2024-07-10] MEDS: HEPARIN 5000 UNITS SC (08:04)
[2024-07-10] MEDS: PACERONE 100 MG PO (08:04)
[2024-07-10] MEDS: APRESOLINE 25 MG PO (08:06)
[2024-07-10] MEDS: TYLENOL 500 MG PO (08:06)
[2024-07-10] MEDS: COZAAR 25 MG PO (08:06)
[2024-07-10] MEDS: LASIX 20 MG PO (08:06)
[2024-07-10] MEDS: DETROL LA 4 MG PO (08:06)
[2024-07-10 09:20] LABS: Blood Urea Nitrogen 32 mg/dl (7-17); Calcium 9.1 mg/dl (8.4-10.2); Carbon Dioxide 29 mmol/L (22-30); Chloride 99 mmol/L (98-107); Estimated Creatinine Clearance 21 ml/min; Glucose 84 mg/dl (70-99); Potassium 3.6 mmol/L (3.5-5.1); Sodium 139 mmol/L (135-145); eGFR 33.73
[2024-07-10 11:00] VITALS: BP 158/70
[2024-07-10 11:05] LABS: Folate 8.2 ng/ml (2.76-20); Vitamin B12 > 1000 pg/ml (239-931)
--- NOTE | 2024-07-10 11:51 | W.PN.CARDCBS ---
Addendum entered and electronically signed by Weston Acevedo MD 07/10/24 14:09:
I saw and examined the patient.
The BUTTON ATTACHING MACHINE OPERATOR or PA's note was reviewed and I agree with the note.
Comment: General: Awake but confused
Neck: Supple, no JVD, HJR, carotids +2 B/L, no bruits bilaterally.
Heart: Non displaced PMI, RRR, no murmurs, No S3, S4, no rubs.
Lungs: Clear to auscultation bilaterally, no wheeze, rhonchi, rubs bilaterally,
normal expiratory phase.
Extremities: No clubbing, cyanosis or edema bilaterally.
Neuro: Awake but confused
Echocardiogram normal. Etiology of syncope unclear. Will hold Coreg and she is seen as an outpatient. Losartan dose was increased for hypertension and hydralazine added. Stable cardiology status for discharge. Will check monitor. Discussed
with hospitalist.
Original Note:
Today's Communication / Plan
-
Cont amiodarone
Coreg on hold, will restart at outpatient follow up if stable
Losartan dose increased for HTN
New to hydralazine
Impression / Plan
-
Metal Sander: Eugenia, last seen in 2021
Assessment:
Admitted with decreased level of consciousness
Possible syncope
Chronic HFpEF
h/o CM EF 47% by echo 06/12/21 and improved to 60-65% by echo 07/10/24
HTN
bradycardia
Paroxysmal A-fib
s/p ablation
Not chronically on OAC due to h/o SDH
CVA (SDH s/p craniotomy)
CKD stage 4
Dementia
Echo 07/10/24: EF 60-65%, stage I diastolic dysfunction, mild MR, mild AR, mild TR
Plan:
-Patient admitted with decreased level of consciousness. Patient was difficult to awaken from lounge chair at home and this was unusual, but no obvious syncope.
-Echo report reviewed and summarized above by me shows improved EF and MR compared to previous echo in 2021
-Tele reviewed by me 07/10/24, no arrhythmia or high grade AV block.
-Patient with known paroxysmal Afib, remains in SR
-Outpatient dose of amiodarone 100 mg daily continued this admission. QTc 534 ms on ECG on admission, but improved to 400 ms on recheck tele measurement by me 07/10/24.
-Patient is not chronically anticoagulated due to h/o SDH
-Patient was not orthostatic by VS
-Resting BP is HTN and patient started on losartan 25 mg daily
-Patient also newly started on hydralazine 25 mg TID
-Outpatient dose of Lasix 20 mg daily has been continued. EF improved on echo.
-Outpatient dose of Coreg 12.5 mg BID was stopped. Will re-evaluate in the cardiology office and restart if stable
Progress Note - Metal Sander
Subjective
Date of Service: July 10, 2024
No chest pain or lightheadedness
Objective
Labs:
07/09/24 06:11
07/10/24 06:42
Labs
Hgb 12.4 g/dL (12.0-16.0) 07/09/24 06:11
Hct 38.3 % (37.0-47.0) 07/09/24 06:11
Plt Count 158 10^3/uL (130-400) 07/09/24 06:11
Sodium 139 mmol/L (135-145) 07/10/24 06:42
Potassium 3.6 mmol/L (3.5-5.1) 07/10/24 06:42
BUN 32 mg/dl (7-17) H 07/10/24 06:42
Creatinine 1.5 mg/dL (0.6-1.0) H 07/10/24 06:42
Glucose 84 mg/dl (70-99) 07/10/24 06:42
Troponins
07/08/24
13:46
Troponin I < 0.012
Vital Signs and I&O:
Vital Signs
Temp Pulse Resp BP Pulse Ox
98.2 F 59 16 190/77 92
07/10/24 07:00 07/10/24 07:00 07/10/24 07:00 07/10/24 07:00 07/10/24 07:00
Vital Signs
Temp Pulse Resp BP Pulse Ox
98.2 F 59 16 190/77 92
07/10/24 07:00 07/10/24 07:00 07/10/24 07:00 07/10/24 07:00 07/10/24 07:00
Intake & Output
07/08/24 07/09/24 07/10/24 07/11/24
06:59 06:59 06:59 06:59
Intake Total 240 / 240 1140 / 1140
Output Total 1900 / 1900 750 / 750
Balance -1660 / -1660 390 / 390
Physical Exam
Physical Exam
GEN: NAD
CV: SR on tele
NEURO: Gross non-focal
SKIN: No rash
--- NOTE | 2024-07-10 13:38 | W.PN.HOSP.TC ---
Today's Communication/Plan
-
dc
Assessment / Plan
Assessment / Plan
84yo F with PMHx of paroxysmal Afib s/p ablation not on AC, Hx of subdural hematoma, CKD, breast CA s/p RT and chemo in 2000, combined CHF, recent UTI came after episode of LOC, when she sat on the sofa getting a nap. It was described as her family
had a hard time waking her up. As per patient there was new Rx of neurontin started recently for her. Telemetry found sinus bradycardia and cardiology advised outpatient cardiac monoitor. No seizure-like activity seen and patient not orthostatic on
admission. Echo with EF 60%, stage 1 diastolic dysfunction, mild MR, mild AR, mild TR, which is improvement since 06/12/21. Medically stable for d/c for ouptatient cardiology follow up.
A/P:
#SYncope most likely 2/2 bradycardia, potentiated by recent Annamarie of Neurontin
CT heads with Hx of R frontotemporal craniotomy, no CVA, but with severe white matter disease in this patient with poor memory and severe L and moderate R temporal lobe volume loss, concerning for Alzheimers. Not candidate for Articept with evelyne.
Start memantine and outpatient neuro referral
Adjust meds: stop BB and Neurontin
Outpatient cardiology for nutrition services worker
#CKD stage 4
#proxysmal Afib s/p ablation
#Combined CHF, chronic
#HLD
cont home meds
DVT ppx hep
DNR/DNI
I have spent at least 39min reviewing chart, test results, communication with consultants and providing direct patient care
Anticipated Discharge: Today
Subjective/Interval History
-
Date of Service: July 10, 2024
Objective Data
-
Labs:
Laboratory Results
07/10/24
06:42
Sodium 139
Potassium 3.6
Chloride 99
Carbon Dioxide 29
BUN 32 H
Creatinine 1.5 H
Glucose 84
Calcium 9.1
Vital Signs:
Vital Signs
Temp Pulse Resp BP Pulse Ox
97.9 F 58 16 158/70 93
07/10/24 11:00 07/10/24 11:00 07/10/24 11:00 07/10/24 11:00 07/10/24 11:00
I&O
07/09/24 07/10/24 07/11/24
06:59 06:59 06:59
Intake Total 240 / 240 1140 / 1140
Output Total 1900 / 1900 750 / 750
Balance -1660 / -1660 390 / 390
Review of Systems
-
History Source: Patient
All other systems: Reviewed and negative
Physical Exam
-
General: No Apparent Distress
Respiratory: Clear to Auscultation
Cardiac: Regular Rhythm
GI: Soft, Nontender and Nondistended
Musculoskeletal: No Clubbing, No Cyanosis and No Edema
Skin: Warm
Neuro: Awake, Alert, Oriented and AO x 3
Psych: Calm
--- NOTE | 2024-07-10 13:45 | W.DCSUMMARY ---
Discharge Summary
Discharge Data
Date of Admission: 07/08/24
Date of Discharge: 07/10/24
-
Pending Results: No
Hospital Course
84yo F with PMHx of paroxysmal Afib s/p ablation not on AC, Hx of subdural hematoma, CKD, breast CA s/p RT and chemo in 2000, combined CHF, recent UTI came after episode of LOC, when she sat on the sofa getting a nap. It was described as her family
had a hard time waking her up. As per patient there was new Rx of neurontin started recently for her. Telemetry found sinus bradycardia and cardiology advised outpatient cardiac monoitor. No seizure-like activity seen and patient not orthostatic on
admission. Echo with EF 60%, stage 1 diastolic dysfunction, mild MR, mild AR, mild TR, which is improvement since 06/12/21. Medically stable for d/c for ouptatient cardiology follow up. Patient was not hypoxic during admission, no concern for PE
I have spent at least 39min reviewing chart, test results, communication with consultants and providing direct patient care
patient was managed for:
#SYncope most likely 2/2 bradycardia, potentiated by recent Rx of Neurontine
#CKD stage 4
#Afib s/p ablation
#Combined CHF, chronic
#HLD
#Alzheimer dementia
Discharge Plan
-
Patient Disposition: Home (Routine Discharge)
Discharge Diagnosis/Procedures: syncope
Diet: Low Sodium
Activity: As tolerated
Driving Restrictions: As prior to admission
Referrals:
Anshu Kate MD [Family Provider] -
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
Prescriptions:
New
hydralazine 25 mg Tablet
25 mg PO TID Qty: 90 0RF
losartan 25 mg Tablet
25 mg PO DAILY Qty: 30 0RF
memantine 5 mg tablet
5 mg PO DAILY 0 Days Qty: 30 0RF
Continued
amiodarone [Pacerone] 200 MG tablet
100 mg PO DAILY 0RF
atorvastatin 40 mg Tablet
40 mg PO QPM
cyanocobalamin (vitamin B-12) 1,000 mcg/mL Solution
1,000 mcg SC QMONTH
furosemide 20 mg Tablet
20 mg PO DAILY
acetaminophen 500 mg Capsule
500 mg PO BID
solifenacin 10 mg Tablet
10 mg PO DAILY
carboxymethylcellulose sodium Drops
1 drp BOTH EYES QPM
Ferretts IPS 40 mg/15 mL Liquid
40 mg PO Q48H
Changed
trazodone 50 MG tablet
25 mg PO HS Qty: 0 0RF
Discontinued
donepezil 5 MG tablet
5 mg PO DAILY
carvedilol 12.5 mg Tablet
12.5 mg PO BID
cephalexin 500 mg capsule
500 mg PO BID 7 Days Qty: 14 0RF
Rx Instructions:
for 7 days starting 07/02/24
gabapentin 300 mg Capsule
300 mg PO HS
Discharge Orders:
Discharge Patient (As Directed); Ordered 07/10/24
Ordered By: Cornelius Sampson
Discharge Date and Time
Print Language: NIUEAN
--- NOTE | 2024-07-10 14:43 | CM ---
Patient stable for d/c today. Initial assessment completed. Admitted for episode of Syncope.
Patient resides w/ spouse in single story home- no steps. Independent w/ ambulating w/ use of a RW, has grab bar and shower chair in the home. Patient was at [facility] in the past, patient has aide that assists her w/ dressing and
housekeeping, patient not sure the provider.
Address, points of contact and insurance verified
PCP: Anshu Kate
Pharmacy: [facility]
Patient admitted obs. SANDERSON form reviewed, copy given to patient, copy on chart
IMM verbally reviewed, copy given to patient, copy on chart
Spouse will transport patient home
Therapy rec HH- patient agreeable to [facility]. Referral placed in [facility]. [facility] liaison made aware
Plan: Home w/ [facility]
--- NOTE | 2024-07-10 15:15 | VNURNOTE ---
Home Health Liaison spoke with patient's spouse Robert to discuss [facility] nurse/therapy, visits, schedule and homebound status. He is familiar with [facility] and is agreeable. He understands that visits at home will be 2-3 x per week to assess and teach
medical management. Spouse is aware that [facility] for [facility] of care in 1-2 days after discharge from .
[facility] referral [facility] in [facility].
== END 2024-07-10 15:30 | disposition home health service (06) ==
LOC: 4 WEST ACU 15:32
PROVIDERS: Physician Assistant Medical; ADMITTING PHYSICIAN Internal Medicine; ATTENDING PHYSICIAN Internal Medicine; CONSULT PHYSICIAN Internal Medicine Cardiovascular Disease; EMERGENCY PHYSICIAN Emergency Medicine; FAMILY PHYSICIAN Family Medicine
DX: R55 Syncope and collapse (principal); I25.10 Atherosclerotic heart disease of native coronary artery without angina pectoris; I13.0 Hypertensive heart and chronic kidney disease with heart failure and stage 1 through stage 4 chronic kidney disease, or unspecified chronic kidney disease; D64.9 Anemia, unspecified; I16.1 Hypertensive emergency; I48.0 Paroxysmal atrial fibrillation; N18.4 Chronic kidney disease, stage 4 (severe); R90.82 White matter disease, unspecified; R00.1 Bradycardia, unspecified; I70.0 Atherosclerosis of aorta; I08.1 Rheumatic disorders of both mitral and tricuspid valves; E78.5 Hyperlipidemia, unspecified; R40.4 Transient alteration of awareness; I50.42 Chronic combined systolic (congestive) and diastolic (congestive) heart failure; G30.9 Alzheimer's disease, unspecified; F02.80 Dementia in other diseases classified elsewhere, unspecified severity, without behavioral disturbance, psychotic disturbance, mood disturbance, and anxiety; I44.0 Atrioventricular block, first degree; K21.9 Gastro-esophageal reflux disease without esophagitis; Z85.3 Personal history of malignant neoplasm of breast; Z87.440 Personal history of urinary (tract) infections; Z66 Do not resuscitate; Z92.21 Personal history of antineoplastic chemotherapy; Z92.3 Personal history of irradiation; Z86.73 Personal history of transient ischemic attack (TIA), and cerebral infarction without residual deficits; Z87.891 Personal history of nicotine dependence; Z90.49 Acquired absence of other specified parts of digestive tract; Z96.653 Presence of artificial knee joint, bilateral; Z90.710 Acquired absence of both cervix and uterus; Z82.49 Family history of ischemic heart disease and other diseases of the circulatory system; Z88.2 Allergy status to sulfonamides; Z88.8 Allergy status to other drugs, medicaments and biological substances
CPT/HCPCS: 70450; 80048; 80053; 82607; 82746; 83735; 83880; 84484; 85025; 93005; 93306; 97163; 97166; 99285; G0378

== ENCOUNTER 2024-07-13 15:22 | Inpatient (IN) | payer MEDICARE, SELFPAY ==
[2024-07-12] VITALS (8 sets, daily range): BP systolic 106–167; BP diastolic 38–68; BMI 30.5; BMI 29.4
[2024-07-12 16:51] LABS: Urine Albumin 2+ (Neg - Trace); Urine Bilirubin Negative (Negative); Urine Character Clear (Clear); Urine Color Yellow; Urine Glucose Negative (Negative); Urine Ketone Negative (Negative); Urine Leukocyte 3+ (Negative); Urine Nitrite Negative (Negative); Urine Occult Blood 1+ (Negative); Urine Specific Gravity 1.015 (<1.030); Urine Urobilinogen Negative (Neg - 1+)
[2024-07-12 16:53] LABS: % Basophils 0.5 % (0-2); % Eosinophils 2.7 % (0-6); % Immature Granulocytes 0.5 % (0-0.5); % Lymphocytes 10.8 % (20.5-51.1); % Monocytes 12.3 % (1.7-9.3); % Neutrophils 73.2 % (42.2-75.2); Absolute Eosinophils 0.2 10^3/uL (0-0.7); Absolute Lymphocytes 0.6 10^3/uL (1.2-3.4); Absolute Monocytes 0.7 10^3/uL (0.1-0.6); Absolute Neutrophils 4.4 10^3/uL (1.4-6.5); Hematocrit 35.8 % (37.0-47.0); Hemoglobin 11.6 g/dL (12.0-16.0); Mean Corp Hgb Conc. 32.4 g/dL (33.0-37.0); Mean Corpuscular Hgb 33.4 pg (27.0-31.0); Mean Corpuscular Volume 103.2 fL (81.0-99.0); Mean Platelet Volume 10.5 fL (7.4-10.4); Nucleated Red Blood Cells % 0 %; Platelet Count 158 10^3/uL (130-400); Red Blood Cell Count 3.47 10^6/uL (4.20-5.40); Red Cell Dist. Width 14.9 % (11.5-14.5)
[2024-07-12 16:58] LABS: Urine Bacteria Moderate (Negative); Urine Red Blood Cell 0-2 /HPF (0-2); Urine White Cell >100 /HPF (0-5)
[2024-07-12 17:08] LABS: ALT (SGPT) 19 U/L (0-35); AST (SGOT) 38 U/L (14-36); Albumin 3.7 g/dl (3.5-5.0); Alkaline Phosphatase 62 U/L (38-126); Blood Urea Nitrogen 53 mg/dl (7-17); Calcium 9.2 mg/dl (8.4-10.2); Carbon Dioxide 28 mmol/L (22-30); Chloride 100 mmol/L (98-107); Estimated Creatinine Clearance 16 ml/min; Glucose 123 mg/dl (70-99); Potassium 4.3 mmol/L (3.5-5.1); Sodium 139 mmol/L (135-145); Total Bilirubin 0.6 mg/dl (0.2-1.3); Total Protein 6.2 g/dl (6.3-8.2)
--- NOTE | 2024-07-12 19:01 | ED.GENMED ---
History of Present Illness
General
Chief Complaint: Weakness
Source: patient
Exam Limitations: none
Time Seen by Provider: 07/12/24 16:44
History of Present Illness
History of Present Illness:
This is an 84-year-old female presents after called 9 1. Patient reportedly fell 3 times since last night. She has a history of dementia. states that she fell last night and again twice today. Her legs just gave out. He states
this is new. She complains of left shoulder pain as well as right knee pain. Questionable whether she hit her head. No loss conscious. No fevers. states that she has not had a fever. No cough or shortness of breath.
Past History
Past History
ED Past Medical History: Arrthythmia (Afib), CAD, Cancer, CHF, CVA, GERD, HTN, Renal failure, Valvular disease and Other (Dementia, neuropathy)
ED Past Surgical History: Appendectomy, Cardiac (Ablation), Gynecological (Hysterectomy) and Orthopedic (Bilateral knee replacement)
Social History
Tobacco: Former smoker
Alcohol: Occasional
Drug: None
Personal: (Seperated)
Living: with family
Employment: Not employed
Family History
Family History: CAD
Phy Exam
Physical Exam
Physical Exam:
CONSTITUTIONAL Patient alert and oriented to person, place. Well-appearing. Vital signs reviewed.
HEAD atraumatic, normocephalic.
EYES eyelids normal to inspection, Extraocular muscles intact, Conjunctiva normal, Sclera normal.
NECK normal range of motion, Trachea midline, no jugular venous distention. No midline tenderness
RESPIRATORY CHEST No respiratory distress noted, Chest expansion equal, Bilateral breath sounds clear.
CARDIOVASCULAR regular rate and rhythm
ABDOMEN abdomen nontender, Bowel sounds normal. No distention.
BACK normal inspection, no obvious deformities
UPPER EXTREMITY Motor strength normal, no cyanosis, no edema. Swelling noted to the left shoulder.
LOWER EXTREMITY range of motion normal, Motor strength normal, no cyanosis, no edema. There is bruising to the right knee greater than left.
NEURO Speech normal, No focal motor deficits, Cranial Nerves intact to screening exam.
Course
Orders/Labs/Results
Orders:
Orders
07/12/24 16:20
ECG [Electrocardiogram (*1)] Urgent
Reason for Study: Fatigue / Weakness
EKG- Treatment ONCE
07/12/24 16:44
Complete Blood Count/With Diff Urgent
Comprehensive Metabolic Panel Urgent
Urinalysis Reflex To Culture Urgent
Date Specimen was Collected: 07/12/24
Time Specimen was Collected: 16:42
Urine Microscopic Reflex Cult Urgent
Urine Culture Urgent
SABRINA Source: U
Specimen Description:
Date Specimen was Collected: 07/12/24
Time Specimen was Collected: 16:42
07/12/24 17:12
CT Cervical Spine W/o Iv Contr Urgent
Comment:
Reason For Exam: fall
CT Head W/o Iv Contrast Urgent
Comment:
Reason For Exam: fall
Knee, Right 4 or More Views [CR Knee- Right 4 Or More View*] Urgent
Comment:
Reason For Exam: fall
Lumbar Spine, 2 or 3 View [CR Lumbar Spine 2 Or 3 Views] Urgent
Comment:
Reason For Exam: fall
Shoulder, Left, Trauma CR [CR Shoulder, Trauma - Left] Urgent
Comment:
Reason For Exam: fall
07/12/24 19:00
CefTRIAXone [Rocephin] 1,000 mg IV NOW STA
07/12/24 19:27
Admit/Transfer Patient As Directed
Co-Sign Provider:
Level of Care: Observation services
Assign to:: Medical/Surgical
Physician / Group: Josh
Diagnosis: acute cystitis
07/12/24 19:28
Code Status As Directed
Resuscitation Status: Do not resuscitate
Reached after discussion with pt or family/Healthcare POA: Yes
DNR Bracelet Application ONCE
07/12/24 19:32
COVID-19 Antigen Stat
Source: Nasal Swab
07/13/24 06:00
CR Chest - 2 Views Routine
Comment:
Reason For Exam: hypoxia
Abnormal Lab Results
07/12/24
16:44
RBC 3.47 L 10^6/uL
(4.20-5.40)
Hgb 11.6 L g/dL
(12.0-16.0)
Hct 35.8 L %
(37.0-47.0)
MCV 103.2 H fL
(81.0-99.0)
MCH 33.4 H pg
(27.0-31.0)
MCHC 32.4 L g/dL
(33.0-37.0)
RDW 14.9 H %
(11.5-14.5)
MPV 10.5 H fL
(7.4-10.4)
Absolute Lymphs (auto) 0.6 L 10^3/uL
(1.2-3.4)
Absolute Monos (auto) 0.7 H 10^3/uL
(0.1-0.6)
Lymphocytes % 10.8 L %
(20.5-51.1)
Monocytes % 12.3 H %
(1.7-9.3)
BUN 53 H mg/dl
(7-17)
Creatinine 2.2 H mg/dL
(0.6-1.0)
Glucose 123 H mg/dl
(70-99)
AST 38 H U/L
(14-36)
Total Protein 6.2 L g/dl
(6.3-8.2)
Ur Occult Blood Reflex 1+ A
(Negative)
Leukocyte Esterase Rfl 3+ A
(Negative)
Urine WBC (Reflex) >100 A /HPF
(0-5)
Urine Bacteria (Reflex) Moderate A
(Negative)
Urine Albumin (Reflex) 2+ A
(Neg - Trace)
07/12/24 16:44
07/12/24 16:44
Vital Signs
Initial and Last Documented VS:
Initial Vital Signs
Pulse Resp BP Pulse Ox
62 16 135/53 92
07/12/24 16:11 07/12/24 16:11 07/12/24 16:11 07/12/24 16:11
Last Documented Vital Signs
Temp Pulse Resp BP Pulse Ox
98.8 F 66 13 137/56 93
07/12/24 16:14 07/12/24 18:45 07/12/24 18:45 07/12/24 17:00 07/12/24 17:15
MDM/Problems Addressed
Differential Diagnosis Includes:
CVA, intracranial hemorrhage, subdural, traumatic brain injury, musculoskeletal injuries, electrolyte disturbance, UTI
MDM/Problems Addressed:
UTI, frequent falls, weakness
*Radiology
Radiology exam reviewed: preliminary read by ED provider (No obvious fractures noted) and radiology read reviewed
*Pulse Oximetry
Patient hypoxic: no
*EKG
Interpreted by ED Provider?: Yes
Interpretation: abnormal
Rate: normal
Rhythm: sinus
[place]: normal axis
Interval: long QT
Ischemia: non-specific ST changes
*Correction Officer Interpretation
Rate: normal
Interpretation: normal
Rhythm: sinus
*Critical Care Note
Total Time (30-74mins, 75-104mins- exclusive of procedures): Not Applicable
Data Reviewed
Review of Other/Old Records Reveals: Labs (Microbiology reviewed from July 01 showing E. coli) and Discharge Summary (Discharge summary reviewed from July 10)
Source: patient and spouse
Patient Management
Discussion with other providers: Hospitalist
Escalation/DeEscalation of care consider admission/obs:
84-year-old female with several falls. Weak at home. May need rehab placement. Treat for UTI in light of urine findings and new weakness. No obvious injuries. Admit
ED Attending Note
-
Portions of this chart may have been created with voice recognition software.� Occasional wrong word or��sound alike� substitutions may have occurred due to the inherent limitations of voice recognition software.
Discharge Plan
Departure
Patient Disposition: Admit
Date of Disposition: 07/12/24
Time of Disposition: 19:03
Admit to: Med/Surg
Presentation/result/management discussed w/ accepting MD/DO: Hospitalist
Discharge Problem:
Weakness, Fall, Acute UTI
Interventions
Interventions:
*Risk Screen - Suicide Last Done: 07/12/24 19:16
*General Assessment Last Done: 07/12/24 19:15
*Neglect/Abuse Screening Last Done: 07/12/24 19:16
*ED COVID-19 Vaccine History Last Done: 07/12/24 19:15
ED- Cardiac Assessment Last Done: 07/12/24 16:40
ED- Neurological Assessment Last Done: 07/12/24 16:40
ED- Pulmonary Assessment Last Done: 07/12/24 16:40
--- NOTE | 2024-07-12 19:08 | HPS.HSE ---
Family Physician
-
Family Physician: Anshu Kate
Chief Complaint
-
weakness and falls
History of Present Illness
This is a 84-year-old female with past medical history of proximal atrial fibrillation status post ablation, not currently on anticoagulation, history of prior subdural hematoma, CKD, breast cancer s/p radiation treatment and chemo, diastolic and
systolic CHF, recurrent urinary tract infection, recent admission for syncopal episode found to have bradycardia, echo showed preserved EF of 60% with stage I diastolic function and mild MR/AR and TR now presenting to the emergency department with 3
falls since yesterday and weakness.
Patient recalls getting up from a chair and walking with a walker. As soon as she started walking she felt that legs just gave way and she fell to the floor but was even the back of her head. She denies any loss of consciousness. She denies any
prior lightheadedness or dizziness. She denies any chest pain palpitations. She denies any shortness of breath. She denies any lower extremity swelling.
Patient denies any recent fevers. She denies cough. She denies any shortness of breath. She also denies nausea vomiting or diarrhea. She denies any vertigo. He denies any recent history of numbness tingling, slurred speech or focal weaknesses
in the right lower extremity.
She currently complains of some hip pain with ambulation.
In the emergency department patient was afebrile, blood pressure was 135/83 with a pulse of 62 satting 92% on room air. ECG shows normal sinus rhythm at a rate of [address] or T wave changes. Possibly will block with a ID of [id number].
QTc 501.
CBC was unremarkable. Electrolytes BUN/creatinine notable for slight rise in creatinine to 2.2 from baseline of 1.5.
Imaging with CT of the head was negative. CT C-spine shows chronic changes but no acute fractures or dislocation. X-rays of the shoulders, lumbar spine and knees shows no acute trauma.
UA was markedly positive.
Medical History
Past Medical History
Past Medical History: Reports Arrhythmia (A-fib status post ablation, not on anticoagulation), Cancer (Right-sided breast cancer), CHF (Combined systolic and diastolic heart failure), CVA (Subdural hematoma status postcraniotomy) and Renal Failure
(CKD stage IV)
Past Surgical History: Reports Brain (Craniotomy) and Orthopedic (Bilateral knee replacements)
Social History
Unable to obtain full social history at this time due to: Dementia
Tobacco: Non-smoker
Alcohol: None
Drug: None
Personal:
Living: With Family
Family History
Family History: Not pertinent
Allergies / Home Medications
Allergies reflects when Allergies were last updated in [facility].
Home Medications with original date entered in [facility]
Allergy/Medication List:
Allergies
Allergy/AdvReac Type Severity Reaction Status Date / Time
Sulfa (Sulfonamide Allergy Unknown hives Verified 07/01/24 18:44
Antibiotics)
amlodipine [From [facility]] Allergy Swelling Verified 07/01/24 18:44
prednisone [Prednisone] Allergy eye Verified 07/01/24 18:44
swelling
mold Allergy Swelling Uncoded 07/01/24 18:44
pollen, trees Allergy vertigo, Uncoded 07/01/24 18:44
tired
Home Medications
donepezil 5 mg tablet 5 mg PO DAILY Neurological Condition 06/19/20
trazodone 50 mg tablet 50 mg PO HS 06/19/20
amiodarone 200 mg tablet (Pacerone) 100 mg (1/2 x 200 mg) PO DAILY 06/21/20
acetaminophen 500 mg capsule 500 mg PO BID 07/01/24
atorvastatin 40 mg tablet 40 mg PO QPM 07/01/24
carboxymethylcellulose sodium 1 drp BOTH EYES QPM 07/01/24
carvedilol 12.5 mg tablet 12.5 mg PO BID 07/01/24
cephalexin 500 mg capsule 500 mg PO BID 7 days #14 caps 07/01/24
cyanocobalamin (vitamin B-12) 1,000 mcg/mL injection solution 1,000 mcg SC QMONTH 07/01/24
furosemide 20 mg tablet 20 mg PO DAILY 07/01/24
solifenacin 10 mg tablet 10 mg PO DAILY 07/01/24
gabapentin 300 mg capsule 300 mg PO HS 07/08/24
iron succinyl-protein complex 40 mg/15 mL oral liquid (Ferretts IPS) 40 mg PO Q48H 07/08/24
Review of Systems
-
History Source: Patient
Constitutional: Reports No Symptoms
EENT: Reports No Symptoms
Respiratory: Reports No Symptoms
Cardiac: Reports No Symptoms
Abdomen/GI: Reports No Symptoms
: Reports No Symptoms
Musculoskeletal: Reports Joint Pain (bilateral hips, L knee)
Skin: Reports No Symptoms
Neurological: Reports No Symptoms
Endocrine: Reports No Symptoms
Hematologic/Lymphatic: Reports No Symptoms
Psych: Reports No Symptoms
Physical Exam
Vital Signs
Vital Signs
Temp Pulse Resp BP Pulse Ox
98.8 F 66 13 137/56 93
07/12/24 16:14 07/12/24 18:45 07/12/24 18:45 07/12/24 17:00 07/12/24 17:15
Physical Exam
General: No Apparent Distress and Comfortable
HEENT: NormoCephalic, Anicteric, Moist mucous membranes and Atraumatic
Respiratory: Clear and Decreased Breath Sounds
Cardiac: S1/S2 and Regular Rhythm
Breast: Deferred by me
GI: Soft, Non Tender, Non Distended and Normal Bowel Sounds
Rectal: Deferred by Provider
Genito-urinary: Deferred by me
Musculoskeletal: No Clubbing, No Cyanosis, Edema, Left Lower Extremity and Edema, Right Lower Extremity
Skin: Warm, Dry and Rash
Neuro: AO x 3 and Nonfocal/grossly intact
Hematologic/Lymphatic: No Lymphadenopathy
Laboratory Results
-
07/12/24 16:44
07/12/24 16:44
Laboratory Results
Total Bilirubin 0.6 mg/dl (0.2-1.3) 07/12/24 16:44
AST 38 U/L (14-36) H 07/12/24 16:44
ALT 19 U/L (0-35) 07/12/24 16:44
Alkaline Phosphatase 62 U/L (38-126) 07/12/24 16:44
Data Reviewed
-
Diagnostic Radiology: Report Reviewed by me
CT Scan: Report Reviewed by me
Medical Tests (Nuc Med, Echo, EKG etc): Image Personally Visualized and interpreted
Lab Data: Labs Reviewed by me
Old Records: Reviewed
Impression/Plan
-
IMPRESSION:
84-year-old with multiple medical comorbidities including atrial fibrillation status post ablation not currently on anticoagulation, CKD, mild diastolic dysfunction with a preserved EF of 60% on last echo last week, recent urinary tract infections,
presenting to the emergency department with weakness and falls. Patient had no loss of consciousness. She had no focal neurological deficits. UA is positive and she has a slight increase in her creatinine from a baseline of 1.7-2.2. Hypoxic to
88% on room air and placed on 2 L in the ED.
PLAN:
UTI - weakness, markedly positive clean u/a suggestive of UTI. Recent UTI with sensitive E.coli
- admit to med/surg
- urine cultures
- IV ceftriaxone for now
- hold lasix
- orthostatic vital signs
- PT evaluation
AFIB - No AC. H/O subdural hematoma. S/P fall here with no intracranial trauma. Currently normal rhythm and rate control
- continue amiodarone
HTN
- orthostatic v/s
- continue lsartan
- hold hydralazine if SBP < 110
JEAN CLAUDE - Mild rise in creatinine likely from losartan vs dehydration
- hold lasix
- continue losartan
hypoxia with weakness - no cough, fevers or chills or other signs of infection
- chest xray
- check covid
- incentive spirometry
DVT PPX - heparin sq
Code status DNR
[2024-07-12] MEDS: ROCEPHIN 1000 MG IV (20:21)
[2024-07-12 21:21] LABS: COVID-19 Antigen Negative (Negative)
[2024-07-12] MEDS: DESYREL 25 MG PO (23:09)
[2024-07-12] MEDS: APRESOLINE 25 MG PO (23:09)
[2024-07-12] MEDS: HEPARIN 5000 UNITS SC (23:09)
--- NOTE | 2024-07-13 00:02 | PTCARENOTE ---
Patient arrived from ED, via stretcher, wearing 2 L NC. BP elevated. Scheduled hydralazine administered. Patient complaining of chronic generalized pain due to arthritis and prior to admission fall. Dual skin check completed--patient presenting with
scattered bruising, a red yet blanchable sacrum/buttocks, and red, madhu lower extremities. On admission, patient stating she has only peed x 1 today. Patient attempted to void on bed mishra but, was unsuccessful. This RN bladder scanned patient for
432 ml. Provider notified. Upon RN leaving the room, patient incontinent of urine. PVR 234 ml; therefore, patient not requiring straight catheterization. This RN will bladder scan at 0500. All patient needs met, patient oriented to room. Bed in
lowest position. Bed alarm on. Call goldman and personal belongings within reach.
[2024-07-13 06:00] VITALS: BMI 29.3
--- NOTE | 2024-07-13 07:16 | W.PN.HOSP.TC ---
Today's Communication/Plan
-
see a/p
Assessment / Plan
Assessment / Plan
Physical Exam
General: No Apparent Distress and Comfortable
HEENT: NormoCephalic, Anicteric, Moist mucous membranes and Atraumatic
Respiratory: Clear and Decreased Breath Sounds
Cardiac: S1/S2 and Regular Rhythm
GI: Soft, Non Tender, Non Distended and Normal Bowel Sounds
Musculoskeletal: No Clubbing, No Cyanosis, Edema, Right knee pain bruising limited range of motion
Skin: Warm, Dry and Rash
Neuro: AO x 3 conversant coherent
Psych: calm
84F with multiple medical comorbidities including atrial fibrillation status post ablation not currently on anticoagulation, CKD, mild diastolic dysfunction with a preserved EF of 60% on last echo last week, recent urinary tract infections,
presenting to the emergency department with weakness and falls. Patient had no loss of consciousness. She had no focal neurological deficits. UA is positive and she has a slight increase in her creatinine from a baseline of 1.7-2.2. Hypoxic to
88% on room air and placed on 2 L in the ED.
PLAN:
UTI - weakness, markedly positive clean u/a suggestive of UTI. Recent UTI with sensitive E.coli
- urine cultures prelim pos follow up official results
- cont IV ceftriaxone
- monitor orthostatic vital signs
- PT/OT evaluations
paroxysmal AFIB - No AC. H/O subdural hematoma.
S/P fall, here with no intracranial trauma
Sinus bradycardia
- continue amiodarone
-monitor on telemetry
HTN
- orthostatic v/s
- continue lsartan
- hold hydralazine if SBP < 110
JEAN CLAUDE suspect prerenal
- hold lasix
- Monitor renal function
Acute hypoxia with weakness - no cough, fevers or chills or other signs of infection
- chest xray appreciated atelectasis vs pna (less likely)
- covid neg
- incentive spirometry
-weaned off oxygen supplementation
Right knee pain trauma/bruising from fall
-Rt Knee X-ray appreciated no acute abn's fracture/dislocation
-Knee brace ordered
DVT PPX - heparin sq
Code status DNR
Discussed with patient and patient's daughter Pippa.
I spent a total of 50 minutes with the patient or on the floor. More than 50% of this time involved counseling and coordination of care.
Anticipated Discharge: 24 - 48 hours
Subjective/Interval History
-
Date of Service: July 13, 2024
no acute distress sitting up comfortably in bed. stable respiratory status on room air. Denies sob urinary symptoms. 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
Objective Data
-
Labs:
Laboratory Results
07/13/24
06:00
WBC Pending
Hgb Pending
Hct Pending
Plt Count Pending
Sodium Pending
Potassium Pending
Chloride Pending
Carbon Dioxide Pending
BUN Pending
Creatinine Pending
Glucose Pending
Calcium Pending
Vital Signs:
Vital Signs
Temp Pulse Resp BP Pulse Ox
97.7 F 60 18 142/51 98
07/12/24 23:27 07/12/24 23:27 07/12/24 23:27 07/12/24 23:27 07/12/24 23:27
[2024-07-13 07:18] VITALS: BP 179/71
[2024-07-13 08:07] LABS: Hematocrit 35.2 % (37.0-47.0); Hemoglobin 11.4 g/dL (12.0-16.0); Mean Corp Hgb Conc. 32.4 g/dL (33.0-37.0); Mean Platelet Volume 10.5 fL (7.4-10.4); Platelet Count 150 10^3/uL (130-400); Red Blood Cell Count 3.45 10^6/uL (4.20-5.40); Red Cell Dist. Width 14.8 % (11.5-14.5)
[2024-07-13 08:10] VITALS: BMI 29.3
[2024-07-13] MEDS: PACERONE 100 MG PO (08:30)
[2024-07-13 08:31] LABS: Blood Urea Nitrogen 49 mg/dl (7-17); Calcium 9.5 mg/dl (8.4-10.2); Carbon Dioxide 31 mmol/L (22-30); Chloride 103 mmol/L (98-107); Estimated Creatinine Clearance 18 ml/min; Glucose 91 mg/dl (70-99); Potassium 3.8 mmol/L (3.5-5.1); Sodium 141 mmol/L (135-145)
[2024-07-13] MEDS: NAMENDA 5 MG PO (08:33)
[2024-07-13] MEDS: DETROL LA 4 MG PO (08:33)
[2024-07-13] MEDS: HEPARIN 5000 UNITS SC ×2 (08:34→21:02)
[2024-07-13] MEDS: COZAAR 25 MG PO (08:34)
[2024-07-13] MEDS: APRESOLINE 25 MG PO ×3 (08:34→21:04)
--- NOTE | 2024-07-13 08:36 | VNURNOTE ---
Chart reviewed. Patient is current with [facility] nursing, PT, OT. Will continue to follow hospital course and DC plans.
[2024-07-13 09:15] VITALS: BP 123/58; BP 142/60; BP 145/65; PULSE 55
[2024-07-13] MEDS: BenGay-Like 1 APPLIC TOPICAL ×3 (13:27→21:04)
[2024-07-13 15:24] VITALS: BP 185/72
[2024-07-13 15:30] VITALS: BP 185/72; PULSE 58; O2SAT 95
--- NOTE | 2024-07-13 16:12 | CM ---
Doug alaniz reviewed patient's chart and met with patient and christian lives with her spouse, in a one story home with a ramp to enter, patient is independent with adl's and uses a walker with ambulation, patient is current with [facility].
PCP: Dr Anshu Kate
Pharmacy: [facility] in [place]
Plan; Needs PT/OT to assist with discharge planning needs.
[2024-07-13] MEDS: LIPITOR 40 MG PO (16:29)
[2024-07-13] MEDS: REFRESH CELLUVISC GEL 1 DROPS BOTH EYES (16:30)
[2024-07-13] MEDS: MIRALAX 17 GRAMS PO (17:20)
[2024-07-13 19:40] VITALS: BP 158/60
[2024-07-13] MEDS: ULTRAM 50 MG PO (21:03)
[2024-07-13] MEDS: ROCEPHIN 1000 MG IV (21:03)
[2024-07-13] MEDS: SENOKOT-S 1 TABLET PO (21:03)
[2024-07-13] MEDS: DESYREL 25 MG PO (21:04)
[2024-07-13 23:12] VITALS: BP 152/65
[2024-07-14 02:25] VITALS: BP 151/82
[2024-07-14 06:00] VITALS: BMI 29.0
[2024-07-14 07:00] VITALS: BP 188/84; BP 197/83; PULSE 64; PULSE 66
--- NOTE | 2024-07-14 07:50 | W.PN.HOSP.TC ---
Today's Communication/Plan
-
see a/p
Assessment / Plan
Assessment / Plan
Physical Exam
General: No Apparent Distress and Comfortable
HEENT: NormoCephalic, Anicteric, Moist mucous membranes and Atraumatic
Respiratory: Clear and Decreased Breath Sounds
Cardiac: S1/S2 and Regular Rhythm
GI: Soft, Non Tender, Non Distended and Normal Bowel Sounds
Musculoskeletal: No Clubbing, No Cyanosis, Edema, Right knee pain bruising limited range of motion
Skin: Warm, Dry and Rash
Neuro: AO x 3 conversant coherent
Psych: calm
84F with multiple medical comorbidities including atrial fibrillation status post ablation not currently on anticoagulation, CKD, mild diastolic dysfunction with a preserved EF of 60% on last echo last week, recent urinary tract infections,
presenting to the emergency department with weakness and falls. Patient had no loss of consciousness. She had no focal neurological deficits. UA is positive and she has a slight increase in her creatinine from a baseline of 1.7-2.2. Hypoxic to
88% on room air and placed on 2 L in the ED.
PLAN:
UTI - weakness, markedly positive u/a suggestive of UTI. Recent UTI with sensitive E.coli
- urine cultures pos for Pseudomonas pansensitive
- IV ceftriaxone switched to cefipime renally dosed
- monitor orthostatic vital signs
- PT/OT evaluations appreciated SNF rehab
paroxysmal AFIB - No AC. H/O subdural hematoma.
S/P fall, here with no intracranial trauma
Sinus bradycardia
- continue amiodarone
-monitor on telemetry
HTN
- orthostatic v/s
- continue losartan hydralazine
-holding parameters all antihypertensive
JEAN CLAUDE suspect prerenal resolved
- Cr 2.2 since improved to 1.4 (baseline 1.3-1.4)
- Monitor renal function
-home Lasix resumed
Acute hypoxia with weakness - no cough, fevers or chills or other signs of infection
- chest xray appreciated atelectasis vs pna (less likely)
- covid neg
- incentive spirometry
-weaned off oxygen supplementation, stable respiratory status on room air
Right knee pain trauma/bruising from fall
-Rt Knee X-ray appreciated no acute abn's fracture/dislocation
-Knee brace ordered
-PT/OT as above
-pain control
-lidocaine patch, bengay-like cream
DVT PPX - heparin sq
Code status DNR
Discharge planning SNF rehab
Discussed with patient and patient's Robert
I spent a total of 45 minutes with the patient or on the floor. More than 50% of this time involved counseling and coordination of care.
Anticipated Discharge: 24 - 48 hours
Subjective/Interval History
-
Date of Service: July 14, 2024
No acute distress, resting comfortably in bed. Reports constipation resolved.
Objective Data
-
Labs:
Laboratory Results
07/14/24
06:56
WBC Pending
Hgb Pending
Hct Pending
Plt Count Pending
Sodium Pending
Potassium Pending
Chloride Pending
Carbon Dioxide Pending
BUN Pending
Creatinine Pending
Glucose Pending
Calcium Pending
Vital Signs:
Vital Signs
Temp Pulse Resp BP Pulse Ox
97.8 F 60 16 151/82 96
07/14/24 02:25 07/14/24 02:25 07/14/24 02:25 07/14/24 02:25 07/14/24 02:25
I&O
07/13/24 07/14/24 07/15/24
06:59 06:59 06:59
Intake Total 720 / 720
Balance 720 / 720
[2024-07-14 07:52] LABS: Hematocrit 35.6 % (37.0-47.0); Hemoglobin 11.7 g/dL (12.0-16.0); Mean Corp Hgb Conc. 32.9 g/dL (33.0-37.0); Mean Corpuscular Hgb 33.7 pg (27.0-31.0); Mean Corpuscular Volume 102.6 fL (81.0-99.0); Mean Platelet Volume 11.4 fL (7.4-10.4); Platelet Count 162 10^3/uL (130-400); Red Blood Cell Count 3.47 10^6/uL (4.20-5.40); Red Cell Dist. Width 14.8 % (11.5-14.5); White Blood Cell Count 5.3 10^3/uL (4.8-10.8)
[2024-07-14] MEDS: DETROL LA 4 MG PO (08:49)
[2024-07-14] MEDS: MIRALAX 17 GRAMS PO (08:49)
[2024-07-14] MEDS: SENOKOT-S 1 TABLET PO (08:49)
[2024-07-14] MEDS: PACERONE 100 MG PO (08:49)
[2024-07-14] MEDS: NAMENDA 5 MG PO (08:53)
[2024-07-14] MEDS: COZAAR 25 MG PO (08:56)
[2024-07-14] MEDS: APRESOLINE 25 MG PO ×2 (08:56→16:25)
[2024-07-14] MEDS: BenGay-Like 1 APPLIC TOPICAL ×2 (08:56→17:30)
[2024-07-14] MEDS: HEPARIN 5000 UNITS SC (08:56)
[2024-07-14 09:03] LABS: Blood Urea Nitrogen 35 mg/dl (7-17); Calcium 9.5 mg/dl (8.4-10.2); Carbon Dioxide 28 mmol/L (22-30); Chloride 100 mmol/L (98-107); Creatine Phosphokinase 27 U/L (30-135); Estimated Creatinine Clearance 25 ml/min; Glucose 89 mg/dl (70-99); Magnesium 2.3 mg/dl (1.6-2.3); Phosphorus 4.3 mg/dl (2.5-4.5); Potassium 4.4 mmol/L (3.5-5.1); Sodium 138 mmol/L (135-145); eGFR 36.64
[2024-07-14 11:00] VITALS: BP 159/66
[2024-07-14] MEDS: DULCOLAX 10 MG RECTAL (11:21)
[2024-07-14] MEDS: STERILE WATER FOR INJECTION 10 ML IV (13:13)
[2024-07-14] MEDS: MAXIPIME 1000 MG IV (13:15)
[2024-07-14] MEDS: BenGay-Like TOPICAL (13:17)
--- NOTE | 2024-07-14 14:15 | CM ---
pharmacy general manager reviewed patient's chart and met with patient and patient therapy are reviewing patient's chart for home v's skilled will need to follow progress.
Plan; Home v's skilled.
[2024-07-14 15:00] VITALS: BP 129/61
[2024-07-14] MEDS: REFRESH CELLUVISC GEL 1 DROPS BOTH EYES (17:29)
[2024-07-14] MEDS: LIPITOR 40 MG PO (17:29)
[2024-07-14 19:55] VITALS: BP 153/70
[2024-07-15] VITALS (8 sets, daily range): BP systolic 110–189; BP diastolic 58–87; PULSE 74–79
[2024-07-15] MEDS: HEPARIN 5000 UNITS SC ×3 (00:30→21:48)
[2024-07-15] MEDS: SENOKOT-S 1 TABLET PO (00:31)
[2024-07-15] MEDS: BenGay-Like 1 APPLIC TOPICAL ×2 (00:31→21:52)
[2024-07-15] MEDS: DESYREL 25 MG PO ×2 (00:31→21:50)
[2024-07-15] MEDS: APRESOLINE 25 MG PO ×2 (00:32→09:28)
[2024-07-15 06:48] LABS: Hematocrit 36.6 % (37.0-47.0); Hemoglobin 12.1 g/dL (12.0-16.0); Mean Corp Hgb Conc. 33.1 g/dL (33.0-37.0); Mean Corpuscular Hgb 33.2 pg (27.0-31.0); Mean Corpuscular Volume 100.3 fL (81.0-99.0); Mean Platelet Volume 10.9 fL (7.4-10.4); Platelet Count 164 10^3/uL (130-400); Red Blood Cell Count 3.65 10^6/uL (4.20-5.40); Red Cell Dist. Width 14.7 % (11.5-14.5); White Blood Cell Count 5.7 10^3/uL (4.8-10.8)
--- NOTE | 2024-07-15 07:13 | W.PN.HOSP.TC ---
Today's Communication/Plan
-
Discharge planning SNF rehab
cont abx
PT/OT
avoid QT prolonging agents as possible
Assessment / Plan
Assessment / Plan
Physical Exam
General: No Apparent Distress, appears Comfortable
HEENT: NormoCephalic, Anicteric, Moist mucous membranes and Atraumatic
Respiratory: Clear and Decreased Breath Sounds
Cardiac: S1/S2 and Regular Rhythm
GI: Soft, Non Tender, Non Distended and Normal Bowel Sounds
Musculoskeletal: No Clubbing, No Cyanosis, Edema, Right knee pain bruising limited range of motion
Neuro: AO x 3 conversant coherent
Psych: calm
84F with multiple medical comorbidities including atrial fibrillation status post ablation not currently on anticoagulation, CKD, mild diastolic dysfunction with a preserved EF of 60% on last echo last week, recent urinary tract infections,
presenting to the emergency department with weakness and falls. Patient had no loss of consciousness. She had no focal neurological deficits. UA is positive and she has a slight increase in her creatinine from a baseline of 1.7-2.2. Hypoxic to
88% on room air and placed on 2 L in the ED- patient since weaned off.
PLAN:
UTI - weakness, markedly positive u/a suggestive of UTI. Recent UTI with sensitive E.coli
- urine cultures pos for Pseudomonas pansensitive
- IV ceftriaxone switched to cefipime renally dosed planned for 5 day course Wednesday Last day for abx
- unable to use oral meds Levo or Cipro d/t significant QT prolongation
- monitor orthostatic vital signs
- PT/OT evaluations appreciated SNF rehab
paroxysmal AFIB - No AC. H/O subdural hematoma.
QT Prolongation
S/P fall, here with no intracranial trauma
Sinus bradycardia
-continue amiodarone
-monitor on telemetry
-minimize use of QT prolonging agents as possible
HTN
- orthostatic v/s
- continue losartan hydralazine
-holding parameters all antihypertensive
JEAN CLAUDE suspect prerenal resolved
- Cr 2.2 since improved to 1.4 (baseline 1.3-1.4)
- Monitor renal function
-home Lasix resumed
Acute hypoxia with weakness - no cough, fevers or chills or other signs of infection
- chest xray appreciated atelectasis vs pna (less likely)
- covid neg
- incentive spirometry
-weaned off oxygen supplementation, stable respiratory status on room air
Right knee pain trauma/bruising from fall
-Rt Knee X-ray appreciated no acute abn's fracture/dislocation
-Knee brace ordered
-PT/OT as above
-pain control
-lidocaine patch, bengay-like cream
DVT PPX - heparin sq
Code status DNR
Discharge planning SNF rehab
Discussed with patient, patient's brother Miles, and patient's daughter Pippa
I spent a total of 40 minutes with the patient or on the floor. More than 50% of this time involved counseling and coordination of care.
Anticipated Discharge: > 48 hours
Subjective/Interval History
-
Date of Service: July 15, 2024
no acute distress sitting up comfortably in chair. Appears well. Denies new acute issues. Brother Miles present during evaluation.
Objective Data
-
Labs:
Laboratory Results
07/15/24
06:16
WBC 5.7
Hgb 12.1
Hct 36.6 L
Plt Count 164
Sodium Pending
Potassium Pending
Chloride Pending
Carbon Dioxide Pending
BUN Pending
Creatinine Pending
Glucose Pending
Calcium Pending
Vital Signs:
Vital Signs
Temp Pulse Resp BP Pulse Ox
97.5 F 65 18 167/79 97
07/15/24 01:51 07/15/24 01:51 07/15/24 01:51 07/15/24 01:51 07/15/24 01:51
I&O
07/14/24 07/15/24 07/16/24
06:59 06:59 06:59
Intake Total 720 / 720 660 / 660
Balance 720 / 720 660 / 660
[2024-07-15 07:19] LABS: Blood Urea Nitrogen 28 mg/dl (7-17); Calcium 9.5 mg/dl (8.4-10.2); Carbon Dioxide 31 mmol/L (22-30); Chloride 102 mmol/L (98-107); Estimated Creatinine Clearance 27 ml/min; Glucose 97 mg/dl (70-99); Magnesium 2.3 mg/dl (1.6-2.3); Phosphorus 3.9 mg/dl (2.5-4.5); Potassium 4.7 mmol/L (3.5-5.1); Sodium 141 mmol/L (135-145); eGFR 40.05
[2024-07-15] MEDS: COZAAR 25 MG PO (09:29)
[2024-07-15] MEDS: LASIX 20 MG PO (09:32)
[2024-07-15] MEDS: PACERONE 100 MG PO (09:32)
[2024-07-15] MEDS: NAMENDA 5 MG PO (09:34)
[2024-07-15] MEDS: LIDOCAINE 4% PATCH 1 PATCH TOPICAL (09:34)
[2024-07-15] MEDS: DETROL LA 4 MG PO (09:38)
[2024-07-15] MEDS: MAXIPIME 1000 MG IV (14:52)
[2024-07-15] MEDS: STERILE WATER FOR INJECTION 10 ML IV (14:53)
[2024-07-15] MEDS: FLUSH (NSS) 2 FLUSH IV (14:54)
[2024-07-15] MEDS: APRESOLINE PO (18:45)
[2024-07-15] MEDS: REFRESH CELLUVISC GEL 1 DROPS BOTH EYES (18:49)
[2024-07-15] MEDS: LIPITOR 40 MG PO (18:49)
[2024-07-16] MEDS: APRESOLINE 25 MG PO ×4 (00:19→21:18)
[2024-07-16 03:10] VITALS: BP 177/67
[2024-07-16] MEDS: ULTRAM 50 MG PO (03:12)
[2024-07-16 06:00] VITALS: BMI 31.1
[2024-07-16 07:30] VITALS: BP 180/82
[2024-07-16 07:51] LABS: Blood Urea Nitrogen 27 mg/dl (7-17); Calcium 9.6 mg/dl (8.4-10.2); Carbon Dioxide 29 mmol/L (22-30); Chloride 104 mmol/L (98-107); Estimated Creatinine Clearance 28 ml/min; Glucose 93 mg/dl (70-99); Magnesium 2.3 mg/dl (1.6-2.3); Phosphorus 4.4 mg/dl (2.5-4.5); Potassium 4.3 mmol/L (3.5-5.1); Sodium 139 mmol/L (135-145); eGFR 40.05
--- NOTE | 2024-07-16 07:54 | W.PN.HOSP.TC ---
Today's Communication/Plan
-
see a/p
Assessment / Plan
Assessment / Plan
Physical Exam
General: No Apparent Distress, appears Comfortable
HEENT: NormoCephalic, Anicteric, Moist mucous membranes and Atraumatic
Respiratory: Clear and Decreased Breath Sounds
Cardiac: S1/S2 and Regular Rhythm
GI: Soft, Non Tender, Non Distended and Normal Bowel Sounds
Musculoskeletal: No Clubbing, No Cyanosis, Edema, Right knee pain bruising limited range of motion
Neuro: AO x 3 conversant coherent
Psych: calm
84F with multiple medical comorbidities including Dementia atrial fibrillation status post ablation not currently on anticoagulation, CKDIII, HFpEF, recent urinary tract infections, presenting to the emergency department with weakness and falls.
JEAN CLAUDE and UA suggestive UTI. Hypoxic to 88% on room air and placed on 2 L in the ED- patient since weaned off.
PLAN:
UTI - weakness, markedly positive u/a suggestive of UTI. Recent UTI with sensitive E.coli
- urine cultures pos for Pseudomonas pansensitive
- IV ceftriaxone switched to cefipime renally dosed planned for 5 day course Wednesday Last for abx
- unable to use oral meds Levo or Cipro d/t significant QT prolongation
- monitor orthostatic vital signs
- PT/OT evaluations appreciated SNF rehab
paroxysmal AFIB - No AC. H/O subdural hematoma.
QT Prolongation
S/P fall, here with no intracranial trauma
Sinus bradycardia
-continue amiodarone
-monitor on telemetry
-minimize use of QT prolonging agents as possible
HTN
- no significant orthostatic hypotension noted during stay
- continue losartan hydralazine
-holding parameters all antihypertensive
-given falls, would consider more permissive/less aggressive treatment HTN.
JEAN CLAUDE suspect prerenal resolved
Hx HFpEF
- Cr 2.2 since improved to 1.4 (baseline 1.3-1.4)
- Monitor renal function
-home Lasix resumed, kidney function remains stable
Acute hypoxia with weakness - no cough, fevers or chills or other signs of infection
- chest xray appreciated atelectasis vs pna (less likely)
- covid neg
- incentive spirometry
-weaned off oxygen supplementation, stable respiratory status on room air
Right knee pain trauma/bruising from fall
-Rt Knee X-ray appreciated no acute abn's fracture/dislocation
-Knee brace ordered
-PT/OT as above
-pain control
-lidocaine patch, bengay-like cream
DVT PPX - heparin sq
Code status DNR
Discharge planning SNF rehab
Discussed with patient and patient's daughter Pippa (out of state, requesting daily updates)
I spent a total of 40 minutes with the patient or on the floor. More than 50% of this time involved counseling and coordination of care.
Anticipated Discharge: 24 - 48 hours
Subjective/Interval History
-
Date of Service: July 16, 2024
no acute distress. sitting up comfortably in bed. Overall reports feeling well. Denies new acute issues at this time.
Objective Data
-
Labs:
Laboratory Results
07/16/24
06:44
WBC Pending
Hgb Pending
Hct Pending
Plt Count Pending
Sodium 139
Potassium 4.3
Chloride 104
Carbon Dioxide 29
BUN 27 H
Creatinine 1.3 H
Glucose 93
Calcium 9.6
Vital Signs:
Vital Signs
Temp Pulse Resp BP Pulse Ox
98.1 F 75 20 177/67 90
07/16/24 03:10 07/16/24 03:10 07/16/24 03:10 07/16/24 03:10 07/16/24 03:10
I&O
07/15/24 07/16/24 07/17/24
06:59 06:59 06:59
Intake Total 660 / 660 600 / 600
Balance 660 / 660 600 / 600
[2024-07-16 08:01] LABS: Hematocrit 36.9 % (37.0-47.0); Hemoglobin 12.3 g/dL (12.0-16.0); Mean Corp Hgb Conc. 33.3 g/dL (33.0-37.0); Mean Corpuscular Hgb 33.4 pg (27.0-31.0); Mean Corpuscular Volume 100.3 fL (81.0-99.0); Mean Platelet Volume 11.2 fL (7.4-10.4); Platelet Count 170 10^3/uL (130-400); Red Blood Cell Count 3.68 10^6/uL (4.20-5.40); Red Cell Dist. Width 14.5 % (11.5-14.5); White Blood Cell Count 5.9 10^3/uL (4.8-10.8)
[2024-07-16] MEDS: PACERONE 100 MG PO (08:34)
[2024-07-16] MEDS: DETROL LA 4 MG PO (08:35)
[2024-07-16] MEDS: COZAAR 25 MG PO (08:35)
[2024-07-16] MEDS: NAMENDA 5 MG PO (08:35)
[2024-07-16] MEDS: LASIX 20 MG PO (08:35)
[2024-07-16] MEDS: LIDOCAINE 4% PATCH 1 PATCH TOPICAL (08:36)
[2024-07-16] MEDS: HEPARIN 5000 UNITS SC ×2 (08:36→20:04)
[2024-07-16 11:00] VITALS: BP 144/71
[2024-07-16] MEDS: MAXIPIME 1000 MG IV (14:32)
[2024-07-16] MEDS: STERILE WATER FOR INJECTION 10 ML IV (14:33)
[2024-07-16 15:40] VITALS: BP 180/84; BP 184/84; PULSE 66; PULSE 78
--- NOTE | 2024-07-16 15:40 | PTCARENOTE ---
patient refused to stand for standing orthostatic vital sign.
[2024-07-16 16:53] VITALS: BP 172/70
[2024-07-16] MEDS: LIPITOR 40 MG PO (17:51)
[2024-07-16] MEDS: REFRESH CELLUVISC GEL 1 DROPS BOTH EYES (17:51)
[2024-07-16] MEDS: DESYREL 25 MG PO (21:18)
[2024-07-16 23:56] VITALS: BP 167/74
[2024-07-17 07:28] VITALS: BP 190/96
[2024-07-17] MEDS: APRESOLINE 25 MG PO ×3 (07:33→23:02)
[2024-07-17] MEDS: LASIX 20 MG PO (07:34)
[2024-07-17] MEDS: PACERONE 100 MG PO (07:34)
[2024-07-17] MEDS: COZAAR 25 MG PO (07:34)
[2024-07-17] MEDS: NAMENDA 5 MG PO (07:35)
[2024-07-17] MEDS: DETROL LA 4 MG PO (07:35)
[2024-07-17] MEDS: LIDOCAINE 4% PATCH 1 PATCH TOPICAL (07:36)
[2024-07-17] MEDS: HEPARIN 5000 UNITS SC ×2 (07:36→20:54)
--- NOTE | 2024-07-17 08:36 | W.PN.HOSP.TC ---
Today's Communication/Plan
-
IV antibiotic
Assessment / Plan
Assessment / Plan
Physical Exam
General: No Apparent Distress, appears Comfortable
HEENT: NormoCephalic, Anicteric, Moist mucous membranes and Atraumatic
Respiratory: Clear and Decreased Breath Sounds
Cardiac: S1/S2 and Regular Rhythm
GI: Soft, Non Tender, Non Distended and Normal Bowel Sounds
Musculoskeletal: No Clubbing, No Cyanosis, Edema, Right knee pain bruising limited range of motion
Neuro: AO x 3 conversant coherent
Psych: calm
A/P:
Pseudomonas UTI:
Continue IV cefepime, day 4 out of 5
Urine culture with Pseudomonas
Paroxysmal A-fib:
Continue amiodarone
Not on anticoagulation due to intracranial bleed in the past
JEAN CLAUDE:
Avoid nephrotoxic
Monitor renal function
Hypoxia:
Improving
Hypertension:
Continue antihypertensives hydralazine and losartan with careful attention to renal function
Hyperlipidemia:
Continue statins
Chronic HFpEF:
Continue oral diuretics, furosemide 20 mg daily
Cognitive deficits:
Continue memantine 5 mg p.o. daily
Traumatic right knee pain:
Pain control
DVT prophylaxis:
Heparin SQ
CODE STATUS:
DNR
Total time spent on today's encounter was 52 minutes which included time spent in counseling the patient/family regarding diagnosis and treatment plan as listed above, goals of care, and symptom management. Case was discussed with nursing staff,
specialists, and care coordinators/case management. All labs and imaging personally reviewed by me. Remainder the time spent in detailed review of previous records, lab data, imaging, and other medical provider documentation.
Anticipated Discharge: 24 - 48 hours
Subjective/Interval History
-
Date of Service: July 17, 2024
Patient denies abdominal pain nausea or vomiting. Afebrile
Objective Data
-
Labs:
Laboratory Results
07/17/24
08:01
WBC Pending
Hgb Pending
Hct Pending
Plt Count Pending
Sodium Pending
Potassium Pending
Chloride Pending
Carbon Dioxide Pending
BUN Pending
Creatinine Pending
Glucose Pending
Calcium Pending
Vital Signs:
Vital Signs
Temp Pulse Resp BP Pulse Ox
98.2 F 69 20 190/96 93
07/17/24 07:28 07/17/24 07:33 07/17/24 07:28 07/17/24 07:33 07/17/24 07:28
I&O
07/16/24 07/17/24 07/18/24
06:59 06:59 06:59
Intake Total 600 / 600 1080 / 1080
Output Total 950 / 950
Balance 600 / 600 130 / 130
[2024-07-17 08:39] LABS: Hematocrit 38.9 % (37.0-47.0); Hemoglobin 12.8 g/dL (12.0-16.0); Mean Corp Hgb Conc. 32.9 g/dL (33.0-37.0); Mean Corpuscular Hgb 33.2 pg (27.0-31.0); Mean Corpuscular Volume 100.8 fL (81.0-99.0); Mean Platelet Volume 11.9 fL (7.4-10.4); Platelet Count 190 10^3/uL (130-400); Red Blood Cell Count 3.86 10^6/uL (4.20-5.40); Red Cell Dist. Width 14.7 % (11.5-14.5); White Blood Cell Count 6.9 10^3/uL (4.8-10.8)
[2024-07-17 09:27] LABS: Blood Urea Nitrogen 31 mg/dl (7-17); Calcium 9.8 mg/dl (8.4-10.2); Carbon Dioxide 27 mmol/L (22-30); Chloride 103 mmol/L (98-107); Estimated Creatinine Clearance 26 ml/min; Glucose 96 mg/dl (70-99); Magnesium 2.3 mg/dl (1.6-2.3); Phosphorus 4.9 mg/dl (2.5-4.5); Potassium 4.3 mmol/L (3.5-5.1); Sodium 139 mmol/L (135-145); eGFR 36.64
[2024-07-17 10:45] VITALS: BP 140/67
[2024-07-17 10:56] VITALS: BP 140/67; PULSE 77
[2024-07-17] MEDS: ULTRAM 50 MG PO (12:30)
[2024-07-17] MEDS: STERILE WATER FOR INJECTION IV (13:05)
[2024-07-17] MEDS: MAXIPIME IV (13:06)
[2024-07-17] MEDS: MAXIPIME 1000 MG IV (14:31)
[2024-07-17] MEDS: STERILE WATER FOR INJECTION 10 ML IV (14:31)
--- NOTE | 2024-07-17 14:44 | CM ---
manager account management reviewed patient's chart and met with patient and physical therapy are recommending skilled placement. Skilled options reviewed with [facility] and [facility], referral [facility].
Plan; Skilled placement.
[2024-07-17 15:00] VITALS: BP 133/70
[2024-07-17] MEDS: REFRESH CELLUVISC GEL 1 DROPS BOTH EYES (17:24)
[2024-07-17] MEDS: TYLENOL 650 MG PO (17:25)
[2024-07-17] MEDS: LIPITOR 40 MG PO (17:25)
[2024-07-17 20:43] VITALS: BP 97/64
[2024-07-17] MEDS: MIRALAX 17 GRAMS PO (20:53)
[2024-07-17] MEDS: DESYREL 25 MG PO (23:02)
[2024-07-17 23:11] VITALS: BP 125/56
[2024-07-18 07:25] VITALS: BP 154/84
[2024-07-18] MEDS: DETROL LA 4 MG PO (07:32)
[2024-07-18] MEDS: APRESOLINE 25 MG PO ×3 (07:32→22:21)
[2024-07-18] MEDS: NAMENDA 5 MG PO (07:33)
[2024-07-18] MEDS: PACERONE 100 MG PO (07:34)
[2024-07-18] MEDS: LASIX 20 MG PO (07:35)
[2024-07-18] MEDS: COZAAR 25 MG PO (07:35)
[2024-07-18] MEDS: LIDOCAINE 4% PATCH 1 PATCH TOPICAL ×2 (07:35→12:35)
[2024-07-18] MEDS: HEPARIN 5000 UNITS SC ×2 (07:36→22:21)
[2024-07-18] MEDS: ULTRAM 50 MG PO ×2 (07:49→22:20)
--- NOTE | 2024-07-18 08:07 | W.PN.HOSP.TC ---
Today's Communication/Plan
-
Antibiotics. Discharge planning
Assessment / Plan
Assessment / Plan
Physical Exam
General: No Apparent Distress, appears Comfortable
HEENT: NormoCephalic, Anicteric, Moist mucous membranes and Atraumatic
Respiratory: Clear and Decreased Breath Sounds
Cardiac: S1/S2 and Regular Rhythm
GI: Soft, Non Tender, Non Distended and Normal Bowel Sounds
Musculoskeletal: Tenderness on left shoulder and decreased range of motion. No Clubbing, No Cyanosis, Edema, Right knee pain bruising limited range of motion.
Neuro: AO x 3 conversant coherent
Psych: calm
A/P:
Pseudomonas UTI:
Finish IV cefepime, day 5 out of 5
Urine culture with Pseudomonas
Discussed with daughter over the phone, Pippa, but she tells me is the person to contact.
Discussed with over the phone today, Robert.
Medically clear for discharge today-discussed with manager case
Left shoulder pain:
Osteoarthritis related
Obtain x-ray of the shoulder
Lidoderm patch
Pain control
Right knee pain:
tells me that he was the one recommended knee brace
PT and pain control
Paroxysmal A-fib:
Continue amiodarone
Not on anticoagulation due to intracranial bleed in the past
JEAN CLAUDE:
Avoid nephrotoxic
Monitor renal function
Hypoxia:
Improving
Hypertension:
Continue antihypertensives hydralazine and losartan with careful attention to renal function
Hyperlipidemia:
Continue statins
Chronic HFpEF:
Continue oral diuretics, furosemide 20 mg daily
Cognitive deficits:
Continue memantine 5 mg p.o. daily
DVT prophylaxis:
Heparin SQ
CODE STATUS:
DNR
Anticipated Discharge: Today
Subjective/Interval History
-
Date of Service: July 18, 2024
Patient complains of left shoulder pain. Afebrile
Objective Data
-
Labs:
Laboratory Results
07/18/24
06:00
WBC Pending
Hgb Pending
Hct Pending
Plt Count Pending
Sodium Pending
Potassium Pending
Chloride Pending
Carbon Dioxide Pending
BUN Pending
Creatinine Pending
Glucose Pending
Calcium Pending
Vital Signs:
Vital Signs
Temp Pulse Resp BP Pulse Ox
97.8 F 76 18 154/84 94
07/18/24 07:25 07/18/24 07:32 07/18/24 07:25 07/18/24 07:32 07/18/24 07:25
I&O
07/17/24 07/18/24 07/19/24
06:59 06:59 06:59
Intake Total 1080 / 1080 1140 / 1140
Output Total 950 / 950
Balance 130 / 130 1140 / 1140
[2024-07-18 09:06] VITALS: BMI 31.0
[2024-07-18 09:35] LABS: Blood Urea Nitrogen 35 mg/dl (7-17); Calcium 9.3 mg/dl (8.4-10.2); Carbon Dioxide 28 mmol/L (22-30); Chloride 101 mmol/L (98-107); Estimated Creatinine Clearance 26 ml/min; Glucose 97 mg/dl (70-99); Potassium 4.6 mmol/L (3.5-5.1); Sodium 136 mmol/L (135-145); eGFR 36.64
[2024-07-18 09:42] LABS: Hematocrit 37.6 % (37.0-47.0); Hemoglobin 12.6 g/dL (12.0-16.0); Mean Corp Hgb Conc. 33.5 g/dL (33.0-37.0); Mean Corpuscular Hgb 33.5 pg (27.0-31.0); Red Blood Cell Count 3.76 10^6/uL (4.20-5.40); Red Cell Dist. Width 14.5 % (11.5-14.5); White Blood Cell Count 5.4 10^3/uL (4.8-10.8)
--- NOTE | 2024-07-18 11:37 | CM ---
Addendum entered by Puja Malcolm 07/18/24 14:45:
Clinicals sent to [facility], pending ref Number [id number].
Addendum entered by Puja Malcolm 07/18/24 14:44:
All clinicals sent to [facility], PENDING REF #
Original Note:
Chart reviewed and plan is for skilled placement, patient and spouse have selected [facility], referral sent to [facility], and patient will need Auth for skilled placement. process safety manager will proceed with obtaining Auth for patient.
[facility]

Dr. Edward
Plan; Skilled placement at [facility] when stable.
[2024-07-18] MEDS: MAXIPIME 1000 MG IV (13:58)
[2024-07-18] MEDS: STERILE WATER FOR INJECTION 10 ML IV (13:58)
[2024-07-18] MEDS: TYLENOL 650 MG PO (14:02)
[2024-07-18 15:05] VITALS: BP 154/72
[2024-07-18 16:08] VITALS: BP 136/62; PULSE 70
[2024-07-18] MEDS: REFRESH CELLUVISC GEL 1 DROPS BOTH EYES (17:36)
[2024-07-18] MEDS: LIPITOR 40 MG PO (17:36)
[2024-07-18] MEDS: DESYREL 25 MG PO (22:22)
[2024-07-18 23:33] VITALS: BP 132/63
[2024-07-19 06:00] VITALS: BMI 29.7
[2024-07-19 07:00] VITALS: BP 166/76
[2024-07-19 08:15] LABS: Hematocrit 37.1 % (37.0-47.0); Hemoglobin 12.2 g/dL (12.0-16.0); Mean Corp Hgb Conc. 32.9 g/dL (33.0-37.0); Mean Corpuscular Hgb 33.5 pg (27.0-31.0); Mean Corpuscular Volume 101.9 fL (81.0-99.0); Mean Platelet Volume 10.4 fL (7.4-10.4); Platelet Count 175 10^3/uL (130-400); Red Blood Cell Count 3.64 10^6/uL (4.20-5.40); Red Cell Dist. Width 14.4 % (11.5-14.5); White Blood Cell Count 5.4 10^3/uL (4.8-10.8)
--- NOTE | 2024-07-19 08:41 | W.PN.HOSP.TC ---
Addendum entered and electronically signed by Hany Nelson MD 07/19/24 18:05:
Will also keep in telemetry and repeat EKG in am to look for any sinus bradycardia.
Addendum entered and electronically signed by Hany Nelson MD 07/19/24 18:02:
BP elevated so d/c cancelled. Given IV Hydralazine. Restart coreg that was held since last admission and reeval if tolerates. Keep hydralazine as needed. Add Dilaudid prn for pain. Plan d/c in am if BP mproves.
Original Note:
Today's Communication/Plan
-
Discharge planning today
Assessment / Plan
Assessment / Plan
Physical Exam
General: No Apparent Distress, appears Comfortable
HEENT: NormoCephalic, Anicteric, Moist mucous membranes and Atraumatic
Respiratory: Clear and Decreased Breath Sounds
Cardiac: S1/S2 and Regular Rhythm
GI: Soft, Non Tender, Non Distended and Normal Bowel Sounds
Musculoskeletal: Tenderness on left shoulder and decreased range of motion. No Clubbing, No Cyanosis, Edema, Right knee pain bruising limited range of motion.
Neuro: AO x 3 conversant coherent
Psych: calm
A/P:
Pseudomonas UTI:
Finished IV cefepime 5 days course
Urine culture with Pseudomonas
Discussed with daughter over the phone, Pippa, but she tells me is the person to contact-see below.
Discussed with over the phone yesterday, Robert.
Medically clear for discharge today-discussed with case management director
Left shoulder pain:
Osteoarthritis related
Obtained x-ray of the shoulder and same as suspected as above
Lidoderm patch
Pain control
Right knee pain:
tells me that he was the one recommended knee brace
PT and pain control
Paroxysmal A-fib:
Continue amiodarone
Not on anticoagulation due to intracranial bleed in the past
JEAN CLAUDE:
Avoid nephrotoxic
Monitor renal function
Hypoxia:
Improving
Hypertension:
Continue antihypertensives hydralazine and losartan with careful attention to renal function
Hyperlipidemia:
Continue statins
Chronic HFpEF:
Continue oral diuretics, furosemide 20 mg daily
Cognitive deficits:
Continue memantine 5 mg p.o. daily
DVT prophylaxis:
Heparin SQ
CODE STATUS:
DNR
Anticipated Discharge: Today
Subjective/Interval History
-
Date of Service: July 19, 2024
No new complaints.
Objective Data
-
Labs:
Laboratory Results
07/19/24
08:07
WBC 5.4
Hgb 12.2
Hct 37.1
Plt Count 175
Sodium Pending
Potassium Pending
Chloride Pending
Carbon Dioxide Pending
BUN Pending
Creatinine Pending
Glucose Pending
Calcium Pending
Vital Signs:
Vital Signs
Temp Pulse Resp BP Pulse Ox
98.2 F 66 16 132/63 96
07/18/24 23:33 07/18/24 23:33 07/18/24 23:33 07/18/24 23:33 07/18/24 23:33
I&O
07/18/24 07/19/24 07/20/24
06:59 06:59 06:59
Intake Total 1140 / 1140 600 / 600
Balance 1140 / 1140 600 / 600
[2024-07-19 08:57] LABS: Blood Urea Nitrogen 37 mg/dl (7-17); Calcium 9.5 mg/dl (8.4-10.2); Carbon Dioxide 30 mmol/L (22-30); Chloride 100 mmol/L (98-107); Estimated Creatinine Clearance 22 ml/min; Glucose 92 mg/dl (70-99); Potassium 4.7 mmol/L (3.5-5.1); Sodium 136 mmol/L (135-145); eGFR 31.21
[2024-07-19] MEDS: NAMENDA 5 MG PO (09:02)
[2024-07-19] MEDS: DETROL LA 4 MG PO (09:02)
[2024-07-19] MEDS: COZAAR 25 MG PO (09:04)
[2024-07-19] MEDS: APRESOLINE 25 MG PO ×3 (09:04→22:31)
[2024-07-19] MEDS: LASIX 20 MG PO (09:04)
[2024-07-19] MEDS: PACERONE 100 MG PO (09:04)
[2024-07-19] MEDS: HEPARIN 5000 UNITS SC ×2 (09:05→19:59)
[2024-07-19] MEDS: LIDOCAINE 4% PATCH 1 PATCH TOPICAL ×2 (09:08→09:09)
--- NOTE | 2024-07-19 14:08 | CM ---
Patient has been approved and accepted at [facility] today, Auth received from patient's insurance, Auth [id number], from 07/19 to 07/21, NRD 07/21, phone [phone], . Ambulance transport has been set up for 4:30pm.
[facility]
Report [phone]

Plan; Patient to transfer to [facility] today by ambulance 4:30pm
[2024-07-19 15:00] VITALS: BP 198/102
[2024-07-19] MEDS: ULTRAM 50 MG PO (15:39)
[2024-07-19] MEDS: APRESOLINE 10 MG IV (16:55)
[2024-07-19] MEDS: LIPITOR 40 MG PO (16:56)
[2024-07-19] MEDS: REFRESH CELLUVISC GEL 1 DROPS BOTH EYES (16:57)
[2024-07-19] MEDS: COREG 12.5 MG PO (18:21)
[2024-07-19 19:30] VITALS: BP 166/70
[2024-07-19] MEDS: DILAUDID 0.25 MG IV (20:05)
[2024-07-19 22:27] VITALS: BP 182/86
[2024-07-19] MEDS: DESYREL 25 MG PO (22:31)
[2024-07-20 03:02] VITALS: BP 117/40
[2024-07-20 07:30] VITALS: BP 156/75
[2024-07-20] MEDS: LIDOCAINE 4% PATCH 1 PATCH TOPICAL ×2 (07:47→07:48)
[2024-07-20] MEDS: NAMENDA 5 MG PO (07:50)
[2024-07-20] MEDS: LASIX 20 MG PO (07:51)
[2024-07-20] MEDS: PACERONE 100 MG PO (07:51)
[2024-07-20] MEDS: COREG 12.5 MG PO (07:52)
[2024-07-20] MEDS: COZAAR 25 MG PO (07:53)
[2024-07-20] MEDS: DETROL LA 4 MG PO (07:53)
[2024-07-20] MEDS: APRESOLINE 25 MG PO (07:53)
[2024-07-20] MEDS: HEPARIN 5000 UNITS SC (07:54)
--- NOTE | 2024-07-20 08:31 | W.PN.HOSP.TC ---
Today's Communication/Plan
-
Discharge planning today
Assessment / Plan
Assessment / Plan
Physical Exam
General: No Apparent Distress, appears Comfortable
HEENT: NormoCephalic, Anicteric, Moist mucous membranes and Atraumatic
Respiratory: Clear and Decreased Breath Sounds
Cardiac: S1/S2 and Regular Rhythm
GI: Soft, Non Tender, Non Distended and Normal Bowel Sounds
Musculoskeletal: Tenderness on left shoulder and decreased range of motion. No Clubbing, No Cyanosis, Edema, Right knee pain bruising limited range of motion.
Neuro: AO x 3 conversant coherent
Psych: calm
A/P:
Pseudomonas UTI:
Finished IV cefepime 5 days course
Urine culture with Pseudomonas
Discussed with daughter over the phone, Pippa, but she tells me is the person to contact-see below.
Medically clear for discharge today-discussed with case management assistant
Discussed with at bedside today
Hypertension:
On hydralazine and losartan
She was on carvedilol recent admission and was discontinued but heart rate has been stable throughout this hospital stay and will put her back o her blood pressure much better controlled and heart rate remained stable. Can continue to reevaluate as
outpatient.
Left shoulder pain:
Osteoarthritis related
Obtained x-ray of the shoulder and same as suspected as above
Lidoderm patch
Pain control
Right knee pain:
tells me that he was the one recommended knee brace and he does not want the brace anymore
PT and pain control
Paroxysmal A-fib:
Continue amiodarone
Not on anticoagulation due to intracranial bleed in the past
JEAN CLAUDE:
Avoid nephrotoxic
Monitor renal function
Hypoxia:
Improving
Hypertension:
Continue antihypertensives hydralazine and losartan with careful attention to renal function
Hyperlipidemia:
Continue statins
Chronic HFpEF:
Continue oral diuretics, furosemide 20 mg daily
Cognitive deficits:
Continue memantine 5 mg p.o. daily
DVT prophylaxis:
Heparin SQ
CODE STATUS:
DNR
Anticipated Discharge: Today
Subjective/Interval History
-
Date of Service: July 20, 2024
Patient denies any new complaints today. Blood pressure much improved. Heart rate stable. Afebrile
Objective Data
-
Labs:
Laboratory Results
07/20/24
08:25
WBC Pending
Hgb Pending
Hct Pending
Plt Count Pending
Sodium Pending
Potassium Pending
Chloride Pending
Carbon Dioxide Pending
BUN Pending
Creatinine Pending
Glucose Pending
Calcium Pending
Vital Signs:
Vital Signs
Temp Pulse Resp BP Pulse Ox
98.1 F 73 14 117/40 93
07/20/24 03:02 07/20/24 03:02 07/20/24 03:02 07/20/24 03:02 07/20/24 06:44
I&O
07/19/24 07/20/24 07/21/24
06:59 06:59 06:59
Intake Total 600 / 600
Balance 600 / 600
[2024-07-20 09:16] LABS: Hematocrit 37.1 % (37.0-47.0); Mean Corp Hgb Conc. 32.3 g/dL (33.0-37.0); Mean Corpuscular Volume 101.9 fL (81.0-99.0); Mean Platelet Volume 10.9 fL (7.4-10.4); Platelet Count 179 10^3/uL (130-400); Red Blood Cell Count 3.64 10^6/uL (4.20-5.40); Red Cell Dist. Width 14.3 % (11.5-14.5); White Blood Cell Count 7.3 10^3/uL (4.8-10.8)
[2024-07-20 09:58] LABS: Blood Urea Nitrogen 38 mg/dl (7-17); Carbon Dioxide 29 mmol/L (22-30); Chloride 100 mmol/L (98-107); Estimated Creatinine Clearance 22 ml/min; Glucose 94 mg/dl (70-99); Potassium 4.8 mmol/L (3.5-5.1); Sodium 136 mmol/L (135-145); eGFR 31.21
[2024-07-20 11:29] VITALS: BP 129/64
--- NOTE | 2024-07-20 11:46 | CM ---
Chart reviewed and mattress spring encaser spoke with physician and nursing this morning and patient has been cleared for discharge today, patient to transfer to [facility] at 3:30pm, by ambulance today.
[facility]
Report [phone]
== END 2024-07-20 16:04 | DRG 683 ==
LOC: 4 WEST ACU 15:22
PROVIDERS: Internal Medicine; ADMITTING PHYSICIAN Internal Medicine; ATTENDING PHYSICIAN Hospitalist; EMERGENCY PHYSICIAN Emergency Medicine; FAMILY PHYSICIAN Family Medicine
DX: N17.9 Acute kidney failure, unspecified (principal); I13.0 Hypertensive heart and chronic kidney disease with heart failure and stage 1 through stage 4 chronic kidney disease, or unspecified chronic kidney disease; I50.32 Chronic diastolic (congestive) heart failure; N39.0 Urinary tract infection, site not specified; J98.11 Atelectasis; Z87.891 Personal history of nicotine dependence; Z66 Do not resuscitate; I48.0 Paroxysmal atrial fibrillation; Z79.01 Long term (current) use of anticoagulants; B96.5 Pseudomonas (aeruginosa) (mallei) (pseudomallei) as the cause of diseases classified elsewhere; E78.5 Hyperlipidemia, unspecified; N18.30 Chronic kidney disease, stage 3 unspecified
CPT/HCPCS: 70450; 71046; 72100; 72125; 73030; 73560; 73564; 80048; 80053; 81003; 81015; 82550; 83735; 84100; 85025; 85027; 87077; 87086; 87186; 87811; 93005; 96374; 97163; 97167; 97530; 97535; 99285

== ENCOUNTER → 2024-07-24 10:43 | Outpatient (REF) | payer MEDICARE, OTHER, SELFPAY ==
[2024-07-24 11:10] LABS: % Basophils 0.5 % (0-2); % Eosinophils 3.4 % (0-6); % Lymphocytes 11.6 % (20.5-51.1); % Monocytes 12.1 % (1.7-9.3); % Neutrophils 71.4 % (42.2-75.2); Absolute Eosinophils 0.2 10^3/uL (0-0.7); Absolute Immature Granulocytes 0.1 10^3/uL (0-0.05); Absolute Lymphocytes 0.7 10^3/uL (1.2-3.4); Absolute Monocytes 0.7 10^3/uL (0.1-0.6); Absolute Neutrophils 4.2 10^3/uL (1.4-6.5); Hematocrit 33.3 % (37.0-47.0); Hemoglobin 10.9 g/dL (12.0-16.0); Mean Corp Hgb Conc. 32.7 g/dL (33.0-37.0); Mean Corpuscular Hgb 33.3 pg (27.0-31.0); Mean Corpuscular Volume 101.8 fL (81.0-99.0); Mean Platelet Volume 11.5 fL (7.4-10.4); Nucleated Red Blood Cells % 0 %; Platelet Count 145 10^3/uL (130-400); Red Blood Cell Count 3.27 10^6/uL (4.20-5.40); White Blood Cell Count 5.9 10^3/uL (4.8-10.8)
[2024-07-24 11:17] LABS: Blood Urea Nitrogen 52 mg/dl (7-17); Calcium 9.4 mg/dl (8.4-10.2); Carbon Dioxide 26 mmol/L (22-30); Chloride 104 mmol/L (98-107); Glucose 94 mg/dl (70-99); Sodium 140 mmol/L (135-145); eGFR 31.21
== END ==
LOC: OLABP 10:43
PROVIDERS: ATTENDING PHYSICIAN Family Medicine
DX: N39.0 Urinary tract infection, site not specified (principal); M19.012 Primary osteoarthritis, left shoulder; B96.5 Pseudomonas (aeruginosa) (mallei) (pseudomallei) as the cause of diseases classified elsewhere; I48.0 Paroxysmal atrial fibrillation; I10 Essential (primary) hypertension; E78.5 Hyperlipidemia, unspecified; Z85.3 Personal history of malignant neoplasm of breast; I11.0 Hypertensive heart disease with heart failure; I50.23 Acute on chronic systolic (congestive) heart failure; N18.9 Chronic kidney disease, unspecified
CPT/HCPCS: 36415; 80048; 85025

== ENCOUNTER → 2024-07-26 11:36 | Outpatient (REF) | payer OTHER, MEDICARE, SELFPAY ==
[2024-07-26 12:57] LABS: % Basophils 0.5 % (0-2); % Eosinophils 2.9 % (0-6); % Immature Granulocytes 0.6 % (0-0.5); % Lymphocytes 13.8 % (20.5-51.1); % Neutrophils 72.2 % (42.2-75.2); Absolute Eosinophils 0.2 10^3/uL (0-0.7); Absolute Lymphocytes 0.9 10^3/uL (1.2-3.4); Absolute Monocytes 0.6 10^3/uL (0.1-0.6); Absolute Neutrophils 4.5 10^3/uL (1.4-6.5); Hematocrit 31.3 % (37.0-47.0); Hemoglobin 10.2 g/dL (12.0-16.0); Mean Corp Hgb Conc. 32.6 g/dL (33.0-37.0); Mean Corpuscular Hgb 33.1 pg (27.0-31.0); Mean Corpuscular Volume 101.6 fL (81.0-99.0); Mean Platelet Volume 11.4 fL (7.4-10.4); Nucleated Red Blood Cells % 0 %; Platelet Count 145 10^3/uL (130-400); Red Blood Cell Count 3.08 10^6/uL (4.20-5.40); Red Cell Dist. Width 14.4 % (11.5-14.5); White Blood Cell Count 6.2 10^3/uL (4.8-10.8)
[2024-07-26 13:21] LABS: Blood Urea Nitrogen 51 mg/dl (7-17); Calcium 9.1 mg/dl (8.4-10.2); Carbon Dioxide 26 mmol/L (22-30); Chloride 107 mmol/L (98-107); Glucose 78 mg/dl (70-99); Potassium 4.1 mmol/L (3.5-5.1); Sodium 139 mmol/L (135-145); eGFR 29.02
== END ==
LOC: OLABP 11:36
PROVIDERS: ATTENDING PHYSICIAN Family Medicine
DX: N39.0 Urinary tract infection, site not specified (principal); M19.012 Primary osteoarthritis, left shoulder; B96.5 Pseudomonas (aeruginosa) (mallei) (pseudomallei) as the cause of diseases classified elsewhere; I48.0 Paroxysmal atrial fibrillation; I10 Essential (primary) hypertension; E78.5 Hyperlipidemia, unspecified; Z85.3 Personal history of malignant neoplasm of breast; I11.0 Hypertensive heart disease with heart failure; I50.23 Acute on chronic systolic (congestive) heart failure; N18.9 Chronic kidney disease, unspecified
CPT/HCPCS: 36415; 80048; 85025

== ENCOUNTER → 2024-07-31 11:46 | Outpatient (REF) | payer OTHER, MEDICARE, SELFPAY ==
[2024-07-31 13:18] LABS: Blood Urea Nitrogen 39 mg/dl (7-17); Calcium 8.8 mg/dl (8.4-10.2); Carbon Dioxide 25 mmol/L (22-30); Chloride 109 mmol/L (98-107); Glucose 73 mg/dl (70-99); Potassium 3.5 mmol/L (3.5-5.1); Sodium 140 mmol/L (135-145); eGFR 33.73
== END ==
LOC: OLABP 11:46
PROVIDERS: ATTENDING PHYSICIAN Family Medicine
DX: N39.0 Urinary tract infection, site not specified (principal); M19.012 Primary osteoarthritis, left shoulder; B96.5 Pseudomonas (aeruginosa) (mallei) (pseudomallei) as the cause of diseases classified elsewhere; I48.0 Paroxysmal atrial fibrillation
CPT/HCPCS: 36415; 80048

== ENCOUNTER 2024-12-06 13:48 | Inpatient (IN) | payer MEDICARE, SELFPAY ==
[2024-12-06] VITALS (11 sets, daily range): BP systolic 95–190; BP diastolic 38–86; BMI 32.9; BMI 31.7
[2024-12-06 11:18] LABS: Hematocrit 37.0 % (37.0-47.0); Hemoglobin 11.5 g/dL (12.0-16.0); Mean Corp Hgb Conc. 31.1 g/dL (33.0-37.0); Mean Corpuscular Volume 99.5 fL (81.0-99.0); Nucleated Red Blood Cells % 0 %; Platelet Count 211 10^3/uL (130-400); Red Cell Dist. Width 14.5 % (11.5-14.5)
--- NOTE | 2024-12-06 11:36 | ED.GENMED ---
Addendum entered and electronically signed by Ronal Tom MD 12/06/24 13:34:
After hospitalist assessment patient's blood pressure has improved, after discussion with hospitalist will proceed with dose of IV Lasix.
Original Note:
History of Present Illness
General
Chief Complaint: Blood Pressure Problem
Source: patient
Exam Limitations: none
Time Seen by Provider: 12/06/24 11:29
Nursing documentation reviewed up to this point in time: agreed with
History of Present Illness
History of Present Illness:
84-year-old female with history of hypertension, CAD, CHF, atrial fibrillation, GERD who presents to the emergency department for evaluation of shortness of breath. Patient reports onset of symptoms rather suddenly overnight and they have been
constant since that time. She reports shortness of breath even with light exertion or conversation. She has not noticed any chest pain. She has noticed some swelling in her legs over the past day or 2. She denies any recent cough or fever. She
denies any other acute complaints.
Past History
Past History
ED Past Medical History: Arrthythmia (Afib), CAD, Cancer, CHF, CVA, GERD, HTN, Renal failure, Valvular disease and Other (Dementia, neuropathy)
ED Past Surgical History: Appendectomy, Cardiac (Ablation), Gynecological (Hysterectomy) and Orthopedic (Bilateral knee replacement)
Social History
Tobacco: Former smoker
Alcohol: Occasional
Drug: None
Personal: (Seperated)
Living: with family
Employment: Not employed
Family History
Family History: CAD
Review of Systems
Review of Systems
All Other Systems: ROS reviewed and negative except as documented in HPI and ROS
Constitutional: Reports fatigue; Denies fever
Respiratory: Reports cough and trouble breathing
Cardiac: Denies chest pain or palpitations
ABD/GI: Denies abdominal pain
Musculoskeletal: Reports edema
Neurological: Denies dizzy or headache
Phy Exam
Physical Exam
Physical Exam:
General: Awake, alert, oriented x3; no acute distress
Head: Normocephalic, atraumatic
Eyes: Conjunctiva normal, EOMI
Throat: Airway intact, handling secretions, generally moist mucous membranes
Neck: Trachea midline, no JVD noted
Lungs: Clear to auscultation bilaterally, no wheezing, rales, rhonchi�patient is notably hypoxic to 88% requiring 2 L nasal cannula, mild tachypnea but no signs of respiratory distress
Heart: Regular rate and rhythm, no murmurs, gallops, or rubs
Abd: Soft, non distended, nontender
Neuro: Grossly intact
Skin: Chronic venous stasis changes in the legs bilaterally
Extremities: Bilateral lower extremity edema, good pulses throughout
Scores
Heart Failure Risk
Heart Failure Risk Score: Not Applicable
Heart Score for Chest Pain Patients
STEMI patient?: Not applicable
Withdrawal Assessment of Alcohol
Withdrawal Assessment Completed?: Not applicable
Course
Orders/Labs/Results
Orders:
Orders
12/06/24 10:41
Electrocardiogram (*1) Urgent
Reason for Study: Shortness of Breath
EKG- Treatment ONCE
12/06/24 11:11
CMP [Comprehensive Metabolic Panel] Urgent
Complete Blood Count/With Diff Urgent
NT-proBNP Urgent
12/06/24 11:30
CR Chest Portable - 1 View Urgent
Comment:
Reason For Exam: sob
Reason Study Needs to be Portable: Unable to Transport
12/06/24 11:39
CT Chest PE Study Urgent
Comment:
Reason For Exam: SOB, hypoxia, hypotensive
12/06/24 12:56
PTT Urgent
Comment: Obtain baseline before beginning heparin infusion if not already collected
Heparin 6,100 units IV NOW STA
Pharmacy Request to Place See Dose Instructions PO NOW STA
Discontinue all Active Warfarin orders?: Yes
Nursing to Place Non Medication Order As Directed
Physician Order: PTT 6 hours after initial start of Heparin infusion
12/06/24 13:00
Heparin INFUSION titrate rate - CONTINUOUS Heparin 50708 Units/250 ml 25,000 units in 250 ml IV PER PROTOCOL
Weight to be used for heparin protocol in kilograms (kg):: 76.5
Protocol:: DVT/PE
PTT Goal Range to be used:: PTT 73 to 111 seconds
Order type:: Initial
INITIAL Infusion Dose (UNITS/KG/hr) & then follow protocol:: 18 units/kg/hr
Infusion Dose in UNITS/hr & then follow protocol (UNITS/hr):: 1,400
INFUSION RATE in mL/hr & then follow protocol (mL/hr):: 14
For DVT/PE algorithm, re-bolus for low PTT?: Yes
PTT less than or equal to 64 seconds:: Re-bolus 80 units/kg (max 10,000units). Increase by 300 units/hr
(+ 3mL/hr)
PTT 64.1 to 72.9 seconds:: Re-bolus 40 units/kg (max 5,000 units). Increase by 200 units/hr
(+ 2mL/hr)
PTT 73 to 111 seconds:: Target Range. No change in rate.
PTT 111.1 to 130.9 seconds:: Decrease rate by 200 units/hr (- 2 mL/hr)
PTT 131 to 199.9 seconds:: HOLD for 1 hr. Then decrease by 200 units/hr (- 2mL/hr)
PTT greater than or equal to 200 seconds:: HOLD for 2 hrs & Notify Provider. Then decrease by 300 units/hr
(- 3mL/hr)
Lab follow-up:: Each change, PTT q6h until 2 consecutive are therapeutic. Then
PTT daily.
Pharmacy Request to Place See Dose Instructions IV DIRECTED
Abnormal Lab Results
12/06/24
11:11
RBC 3.72 L 10^6/uL
(4.20-5.40)
Hgb 11.5 L g/dL
(12.0-16.0)
MCV 99.5 H fL
(81.0-99.0)
MCHC 31.1 L g/dL
(33.0-37.0)
Absolute Lymphs (auto) 0.6 L 10^3/uL
(1.2-3.4)
Absolute Monos (auto) 0.8 H 10^3/uL
(0.1-0.6)
Immature Gran % 0.6 H %
(0-0.5)
Lymphocytes % 9.5 L %
(20.5-51.1)
Monocytes % 11.6 H %
(1.7-9.3)
Carbon Dioxide 33 H mmol/L
(22-30)
BUN 38 H mg/dl
(7-17)
Creatinine 1.8 H mg/dL
(0.6-1.0)
12/06/24 11:11
12/06/24 11:11
Vital Signs
Initial and Last Documented VS:
Initial Vital Signs
Temp Pulse Resp Pulse Ox
36.6 C 61 16 88
12/06/24 10:32 12/06/24 10:32 12/06/24 10:32 12/06/24 10:32
Last Documented Vital Signs
Temp Pulse Resp BP Pulse Ox
36.6 C 58 17 117/57 96
12/06/24 10:32 12/06/24 12:20 12/06/24 12:20 12/06/24 12:20 12/06/24 12:20
MDM/Problems Addressed
Differential Diagnosis Includes:
CHF, dysrhythmia, anemia, PE, pneumonia
MDM/Problems Addressed:
84-year-old female with history as noted presents for evaluation of increasing shortness of breath since last night also noted some increased swelling in her legs today. She is hypoxic and mildly hypotensive here with mild tachypnea. Physical exam
as noted. Will plan to place an IV and check labs including a CBC and a CMP. Will check proBNP. Check stat EKG. Check troponin. Will check a stat portable chest x-ray�lungs are clear, if chest x-ray shows no acute abnormality will her hypoxia
we will plan to proceed with a CT chest to rule out PE especially given her history of DVT in the past. Monitor very closely here on telemetry and continuous pulse oximetry and reassess after the above.
Chest x-ray reviewed by me some vascular congestion but no slade edema or pneumonia and given her history of DVT with hypoxia and hypotension today I do think she should have CT chest to rule out PE. Labs noted she does have stable anemia as well
as CKD with GFR 27�at this point I think the risk of missed PE outweighs risk of renal injury in this case.
CT chest reviewed: She does have a small right subsegmental PE. Also signs consistent with mild pulmonary edema as well as some signs suggesting a degree of right heart failure. Overall mixed picture likely some CHF as well as PE contributing to
her hypoxic respiratory failure. Overall patient examines as hypervolemic despite her low blood pressures�certainly I do not think she would tolerate fluids to treat her hypotension. She will likely need some diuresis but concerned given the low
blood pressures that this would exacerbate this issue. Case was discussed with cardiology to provide some guidance/recommendations for management of CHF. Will start on heparin infusion for management of PE. Will admit to the hospitalist service
for continued management. Discussed case with hospitalist.
Chronic conditions affecting care:
A-fib, CHF, CAD, DVT
*Radiology
Radiology exam reviewed: preliminary read by ED provider and radiology read reviewed
*Pulse Oximetry
SaO2: 94
Nasal Cannula flow liters per minute: 2
Oxygen Mode of Delivery: Room air
Patient hypoxic: yes (88%)
*EKG
Interpreted by ED Provider?: Yes
Heart Rate: 59
Rate: bradycardiac
Rhythm: sinus
[place]: normal axis
Interval: long QT
QRS Pattern: normal QRS
Ischemia: non-specific ST changes
*Critical Care Note
Total Time (30-74mins, 75-104mins- exclusive of procedures): 34
comment:
Critical care statement: A total of 34 minutes of critical care time was provided for this patient. This includes management of unstable vital signs, evaluation of the patient at bedside, frequent reassessment, discussion with
consultants/hospitalist, and review of pertinent medical records. This time was separate from time utilized to perform any aforementioned documented procedures
Data Reviewed
Review of Other/Old Records Reveals: Labs and Records
Source: patient and records
Patient Management
Discussion with other providers: Hospitalist (Discussed with hospitalist) and Teacher Tutor (Discussed with lithographer apprentice)
Escalation/DeEscalation of care consider admission/obs:
Admission indicated
ED Attending Note
-
Portions of this chart may have been created with voice recognition software.� Occasional wrong word or��sound alike� substitutions may have occurred due to the inherent limitations of voice recognition software.
Discharge Plan
Departure
Patient Disposition: Admit
Date of Disposition: 12/06/24
Time of Disposition: 12:59
Admit to doctor: Amna
Presentation/result/management discussed w/ accepting MD/DO: Hospitalist
Discharge Problem:
CHF (congestive heart failure), Pulmonary embolism, Acute hypoxic respiratory failure
Prescriptions:
No Action
amiodarone [Pacerone] 200 MG tablet
100 mg PO DAILY 0RF
atorvastatin 40 mg Tablet
40 mg PO QPM
cyanocobalamin (vitamin B-12) 1,000 mcg/mL Solution
1,000 mcg SC QMONTH
furosemide 20 mg Tablet
20 mg PO DAILY
acetaminophen 500 mg Capsule
500 mg PO BID
solifenacin 10 mg Tablet
10 mg PO DAILY
carboxymethylcellulose sodium Drops
1 drp BOTH EYES QPM
Ferretts IPS 40 mg/15 mL Liquid
40 mg PO Q48H
hydralazine 25 mg Tablet
25 mg PO TID Qty: 90 0RF
losartan 25 mg Tablet
25 mg PO DAILY Qty: 30 0RF
trazodone 50 MG tablet
25 mg PO HS Qty: 0 0RF
memantine 5 mg tablet
5 mg PO DAILY 0 Days Qty: 30 0RF
lidocaine 4 % Adhesive Patch,Medicated
1 patch topical DAILY Qty: 5 0RF
Rx Instructions:
Apply in left shoulder
carvedilol 12.5 mg Tablet
12.5 mg PO BID Qty: 60 0RF
Referrals:
UNKNOWN - PT DOES,NOT KNOW [Family Provider]
Interventions
Interventions:
*Risk Screen - Suicide Last Done: 12/06/24 10:32
*General Assessment Last Done: 12/06/24 10:32
*Neglect/Abuse Screening Last Done: 12/06/24 10:38
*ED COVID-19 Vaccine History Last Done: 12/06/24 10:38
ED- Cardiac Assessment Last Done: 12/06/24 10:38
ED- Neurological Assessment Last Done: 12/06/24 10:38
ED- Pulmonary Assessment Last Done: 12/06/24 10:38
Discharge Date and Time
Print Language: BULGARIAN
[2024-12-06 11:45] LABS: ALT (SGPT) 13 U/L (0-35); AST (SGOT) 19 U/L (14-36); Albumin 3.7 g/dl (3.5-5.0); Alkaline Phosphatase 77 U/L (38-126); Blood Urea Nitrogen 38 mg/dl (7-17); Calcium 9.5 mg/dl (8.4-10.2); Carbon Dioxide 33 mmol/L (22-30); Chloride 103 mmol/L (98-107); Estimated Creatinine Clearance 21 ml/min; Glucose 92 mg/dl (70-99); Potassium 4.0 mmol/L (3.5-5.1); Sodium 140 mmol/L (135-145); Total Protein 6.4 g/dl (6.3-8.2); eGFR 27.10
--- NOTE | 2024-12-06 13:37 | HPS.HSE ---
Family Physician
-
Family Physician: NOT KNOW UNKNOWN - PT DOES
Chief Complaint
-
shortness of breath
History of Present Illness
84-year-old female past medical history of paroxysmal atrial fibrillation, CAD, chronic HFpEF, hypertension, breast cancer, CVA, CKD, cognitive defects, Pseudomonas UTI, prior DVT presenting to emergency room for shortness of breath ongoing for past
10 days with exertion. Symptoms got worse abruptly last night and have been constant since then. Shortness of with occurs with even light exertion or conversation. She denies any chest pain. She has some increased swelling in the legs for the
past 2 days. Gained 6 pounds in the past 10 days. Denies cough or fever.
She sees Dr. Campbell. No increase in Lasix recently.
Also did have urinary burning last night.
Medical History
Past Medical History
Past Medical History: Reports Other (paroxysmal atrial fibrillation, CAD, chronic HFpEF, hypertension, breast cancer, CVA, CKD, cognitive defects, Pseudomonas UTI, prior DVT)
Past Surgical History: Reports Other (Appendectomy, Cardiac (Ablation), Gynecological (Hysterectomy) and Orthopedic (Bilateral knee replacement))
Social History
Tobacco: Non-smoker
Alcohol: None
Drug: None
Family History
Family History: Not pertinent
Allergies / Home Medications
Allergies reflects when Allergies were last updated in [facility].
Home Medications with original date entered in [facility]
Allergy/Medication List:
Allergies
Allergy/AdvReac Type Severity Reaction Status Date / Time
amlodipine (From Norvasc) Allergy Swelling-eye Verified 07/13/24 17:11
swelling
mold Allergy Swelling-eyes, Verified 07/13/24 17:11
fluid in
ears
pollen extracts Allergy vertigo, Verified 07/13/24 17:11
tired
prednisone (Prednisone) Allergy eye Verified 07/12/24 16:14
swelling
Sulfa (Sulfonamide Allergy hives Verified 07/13/24 17:11
Antibiotics)
tree and shrub pollen Allergy vertigo, Verified 07/13/24 17:11
tired
Home Medications
amiodarone 200 mg tablet (Pacerone) 100 mg (1/2 x 200 mg) PO DAILY 06/21/20
atorvastatin 40 mg tablet 40 mg PO QPM cholesterol 07/01/24
furosemide 20 mg tablet 20 mg PO DAILY Fluid Retention/Swelling 07/01/24
solifenacin 10 mg tablet 10 mg PO DAILY Urinary Issue 07/01/24
losartan 25 mg tablet 25 mg PO DAILY #30 tabs 07/10/24
memantine 5 mg tablet 5 mg PO DAILY 0 days #30 tabs 07/10/24
trazodone 50 mg tablet 25 mg (1/2 x 50 mg) PO HS Sleep #0 tabs 07/10/24
acetaminophen 325 mg tablet (Tylenol) 325 mg PO BID 12/06/24
cholecalciferol (vitamin D3) 25 mcg (1,000 unit) tablet (Vitamin D3) 25 mcg PO DAILY 12/06/24
cranberry extract 250 mg tablet 250 mg PO DAILY 12/06/24
cyanocobalamin (vitamin B-12) 1,000 mcg tablet 1,000 mcg PO DAILY 12/06/24
donepezil 10 mg tablet 10 mg PO HS 12/06/24
gabapentin 300 mg capsule 300 mg PO HS 12/06/24
hydralazine 50 mg tablet 50 mg PO BID 12/06/24
Review of Systems
-
Constitutional: Reports No Symptoms
EENT: Reports No Symptoms
Respiratory: Reports See HPI
Cardiac: Reports See HPI
Abdomen/GI: Reports No Symptoms
: Reports No Symptoms
Musculoskeletal: Reports No Symptoms
Skin: Reports No Symptoms
Neurological: Reports No Symptoms
Endocrine: Reports No Symptoms
Hematologic/Lymphatic: Reports No Symptoms
Psych: Reports No Symptoms
Physical Exam
Vital Signs
Vital Signs
Temp Pulse Resp BP Pulse Ox
97.8 F 57 17 150/58 95
12/06/24 10:32 12/06/24 13:20 12/06/24 13:20 12/06/24 13:20 12/06/24 13:20
Physical Exam
General: Well Developed, Well Nourished and No Apparent Distress
HEENT: NormoCephalic, Moist mucous membranes and Atraumatic
Respiratory: Clear
Cardiac: S1/S2, Regular Rhythm and Peripheral Edema; No Murmur or Rub
GI: Soft, Non Tender, Non Distended and Normal Bowel Sounds; No Organomegaly
Rectal: Deferred by Provider
Musculoskeletal: No Clubbing, No Cyanosis and No Edema
Skin: No Rash
Neuro: Nonfocal/grossly intact
Laboratory Results
-
12/06/24 11:11
12/06/24 11:11
Laboratory Results
Total Bilirubin 0.7 mg/dl (0.2-1.3) 12/06/24 11:11
AST 19 U/L (14-36) 12/06/24 11:11
ALT 13 U/L (0-35) 12/06/24 11:11
Alkaline Phosphatase 77 U/L (38-126) 12/06/24 11:11
Data Reviewed
-
Lab Data: Labs Reviewed by me
Old Records: Reviewed
Impression/Plan
-
IMPRESSION:
PLAN:
# Acute HFpEF exacerbation
-Cardiac BNP 6700
-Chest x-ray shows mild pulmonary vascular congestion
- CT PE shows tiny single right lower lobe subsegmental thromboembolus, mild diffuse hazy ground glass bases suspicious for mild pulmonary edema, cardiomegaly, reflux of contrast of right atrium into the IVC and hepatic veins indicating right heart
failure
-Echo from June shows EF of 60 to 65%, eccentric LVH, stage I diastolic
- Blood pressure 90s to 100 initially but currently 150
-40 IV Lasix
-Hold Coreg, losartan, hydralazine for now given initial hypotension
-Check echo
- Cardiology consulted
# Small right lower lobe subsegmental thromboemboli likely from sedentary status
# History of prior DVT
-Heparin drip started
- Check venous ultrasound
# Dysuria
# History of frequent UTIs
- Check urinalysis
Paroxysmal atrial fibrillation
- Continue amiodarone
CAD
Essential hypertension
Breast cancer
History of CVA
- Continue statin
CKD
-Baseline renal function around 1.6-1.7, creatinine currently 1.8
- Renal function at baseline
History of cognitive defects
- Continue memantine
Pseudomonas UTI
DNR/DNI
DVT prophylaxis�heparin drip
Cardiac diet
[2024-12-06 13:46] LABS: APTT 30.9 Sec (23.4-35.0)
[2024-12-06] MEDS: LASIX 40 MG IV (13:52)
[2024-12-06] MEDS: HEPARIN 6100 UNITS IV (13:54)
[2024-12-06] MEDS: HEPARIN 25000 UNITS/250 ML IV (13:55)
--- NOTE | 2024-12-06 14:27 | CON.CAR ---
Addendum entered and electronically signed by Jaleesa Lemons PA-C 12/06/24 16:53:
HPI below should read: Patient is an 84-year-old female with past medical history of paroxysmal atrial fibrillation status post ablation, not chronically anticoagulated due to history of SDH, chronic heart failure, cardiomyopathy with subsequent
recovery in ejection fraction, CKD, breast cancer, and history of DVT who presented to [facility] for evaluation of shortness of breath. She reports noting shortness of breath over the last 2 weeks, however significantly worse starting
yesterday. She also reports weight gain of 6 pounds in about the last 10 days As well as lower extremity edema. She is chronically on p.o. Lasix 20 mg daily as outpatient. On arrival to ER proBNP elevated at 6750. Chest x-ray with mild vascular
congestion and chest CT also showed evidence of a small right-sided PE. Patient has previously not been anticoagulated due to history of subdural hematoma despite atrial fibrillation and history of DVT. Cardiology consulted for assistance with
diuretic management in the setting of acute heart failure.
Addendum entered and electronically signed by Yogi Vazquez DO 12/06/24 16:49:
I saw and examined the patient.
The Brick Molder Hand's note was reviewed and I agree with the note.
Comment:
Plan:
Patient with evidence of heart failure, she already feels improved with IV Lasix.
Continue IV Lasix.
Monitor I's and O's Daily weights and creatinine.
Wean O2 as able.
Echo from June 2024 showed EF preserved at 6065% with history of recovered cardiomyopathy. Repeat echo to reassess LV function.
Previously her GDMT was limited due to dizziness on Aldactone and bradycardia with beta-[place]in[place]. She is not a candidate for SGLT2 inhibitor given recurrent UTIs.
Continue hydralazine. Hold losartan with worsening renal function.
Monitor QT with amiodarone use and Aricept.
CT with evidence of small right-sided PE. She has not been historically coagulated given SDH on Eliquis and hematoma on Coumadin.
IV heparin as per primary service.
Discussed with at bedside.
Original Note:
Consultation
Consultation Request
Date/Time Consultation Performed: 12/06/24
Requesting Provider: Dr. Tom
Performing Provider: Jaleesa Lemons PA-C for Dr. Vazquez
Reason for Consultation: CHF
Medical History
-
Chief Complaint: SOB
History of Present Illness:
PMH:
Chronic HFimpEF
Recovered CM
Paroxysmal a-fib status post ablation, not on anticoagulation
CVA (Subdural hematoma status postcraniotomy)
CKD stage IV
Dementia
History of right-sided breast cancer s/p lumpectomy, chemo, radiation
History of R DVT
Bilateral knee replacements
Past Medical History
Past Medical History: Other (as above)
Past Surgical History: Other (as above)
Social History
Tobacco: Non-Smoker
Personal:
Living: With Family
Employment: Retired
Family History
Family History: Reviewed & Not Pertinent
Allergies / Home Medications
Allergy/AdvReac Type Severity Reaction Status Date / Time
amlodipine (From [facility]) Allergy Swelling-eye Verified 07/13/24 17:11
swelling
mold Allergy Swelling-eyes, Verified 07/13/24 17:11
fluid in
ears
pollen extracts Allergy vertigo, Verified 07/13/24 17:11
tired
prednisone (Prednisone) Allergy eye Verified 07/12/24 16:14
swelling
Sulfa (Sulfonamide Allergy hives Verified 07/13/24 17:11
Antibiotics)
tree and shrub pollen Allergy vertigo, Verified 07/13/24 17:11
tired
�Medication �Instructions �Recorded �Confirmed �Type
amiodarone 200 mg tablet (Pacerone) 100 mg (1/2 x 200 mg) PO DAILY 06/21/20 12/06/24 Rx
atorvastatin 40 mg tablet 40 mg PO QPM cholesterol 07/01/24 12/06/24 History
furosemide 20 mg tablet 20 mg PO DAILY Fluid 07/01/24 12/06/24 History
Retention/Swelling
solifenacin 10 mg tablet 10 mg PO DAILY Urinary Issue 07/01/24 12/06/24 History
losartan 25 mg tablet 25 mg PO DAILY #30 tabs 07/10/24 12/06/24 Rx
memantine 5 mg tablet 5 mg PO DAILY 0 days #30 tabs 07/10/24 12/06/24 Rx
trazodone 50 mg tablet 25 mg (1/2 x 50 mg) PO HS Sleep #0 07/10/24 12/06/24 Rx
tabs
acetaminophen 325 mg tablet 325 mg PO BID 12/06/24 12/06/24 History
(Tylenol)
cholecalciferol (vitamin D3) 25 25 mcg PO DAILY 12/06/24 12/06/24 History
mcg (1,000 unit) tablet (Vitamin
D3)
cranberry extract 250 mg tablet 250 mg PO DAILY 12/06/24 12/06/24 History
cyanocobalamin (vitamin B-12) 1,000 mcg PO DAILY 12/06/24 12/06/24 History
1,000 mcg tablet
donepezil 10 mg tablet 10 mg PO HS 12/06/24 12/06/24 History
gabapentin 300 mg capsule 300 mg PO HS 12/06/24 12/06/24 History
hydralazine 50 mg tablet 50 mg PO BID 12/06/24 12/06/24 History
Review of Systems
-
History Source: Patient and Family
All other systems: Negative unless noted
Physical Exam
Vital Signs
Temp Pulse Resp BP Pulse Ox
98.1 F 60 22 166/64 95
12/06/24 14:03 12/06/24 14:03 12/06/24 14:03 12/06/24 14:03 12/06/24 14:03
Lab Results
12/06/24 11:11
12/06/24 11:11
Qir-T-Agkcenvymdu Pept 6750 pg/ml 12/06/24 11:11
Physical Exam
General: No Apparent Distress, Comfortable and Other (on supp O2)
HEENT: Normocephalic, Anicteric and Moist Mucous Membranes
Respiratory: Crackles (at bases) and Non Labored Respirations
Cardiac: S1/S2, Regular Rhythm, Murmur and Other ([place])
GI: Soft, Non Tender, Non Distended and Normal Bowel Sounds
Musculoskeletal: No Clubbing, No Cyanosis and Edema (trace to 1+ of B/L LE)
Skin: Warm and Dry
Neuro: AO x 3
Impression / Plan
-
Primary Bobj Developer: Dr. Bello
Assessment:
Presentation with SOB
Acute hypoxic respiratory insufficiency
Acute on chronic HFimpEF
Small R PE
Prolonged QTc
Recovered CM
Paroxysmal a-fib status post ablation, not on anticoagulation
History of CVA (Subdural hematoma status post craniotomy)
CKD stage IV
Dementia
History of right-sided breast cancer s/p lumpectomy, chemo, radiation
History of R DVT
Bilateral knee replacements
History of frequent UTIs
DNR code status
ECHO 07/10/24: EF 60 to 65%, no regional wall motion abnormalities noted, moderate concentric LVH, stage I diastolic dysfunction, mitral sclerosis, mild MR, aortic sclerosis, mild AR, mild TR, PASP 44 mmHg
Plan:
-Patient presented with SOB.
-proBNP 6750. CXR with mild congestion and chest CT with mild pulm edema
-initially noted to be hypotensive, but BP has improved
-continue IV lasix, was on 20mg po daily prior to admission. dry weight historically has been 158 pounds
-Cr 1.8, baseline historically has been 1.5-1.7
-wean supp O2 as able
-last echo from 07/10/24 with EF 60-65%, however previously was as low as 30-35%. repeat follow up echo to reassess EF
-GDMT has been limited due to dizziness on aldactone in past and bradycardia on BB. she has frequent UTIs so is not candidate for SGLT2 inhibitor. continue hydralazine. holding OP losartan
-noted to have prolonged QTc by EKG on amiodarone 100mg daily. also on aricept which can cause QTc prolongation. follow serial EKGs
-chest CT also with evidence of small R PE. of note, patient has not historically been anticoagulated given history of SDH on eliquis. she also has history of hematoma on coumadin. being started on IV heparin in ER
-d/w nursing. d/w patient and at bedside
Data Reviewed
-
EKG: Tracing Personally Visualized and interpreted
Radiology: Report Reviewed by me
CT Scan: Report Reviewed by me
Medical Tests (Nuc Med, Echo etc): Report Reviewed by me
Labs: Labs Reviewed by me
Old Records: Reviewed
--- NOTE | 2024-12-06 14:30 | PTCARENOTE ---
Assumed care of pt from previous RN. Heparin bolus & gtt started, see MAY. Full admission completed. Pt AOx3, slightly [place]. Mild SOB, 95% on 3L NC. LS diminished, occasional non productive cough. [place] LE edema noted. 40mg IV Lasix given as ordered.
SB-NSR 55-60's. BP elevated. aware. Will continue to monitor. Bed assignment posted. Report sent.
[2024-12-06] MEDS: LIPITOR 40 MG PO (17:01)
[2024-12-06 17:20] LABS: Urine Character Clear (Clear)
[2024-12-06 17:31] LABS: Urine Red Blood Cell 0-2 /HPF (0-2); Urine White Cell 26-30 /HPF (0-5)
[2024-12-06] MEDS: TYLENOL 325 MG PO (20:04)
[2024-12-06] MEDS: APRESOLINE 50 MG PO (20:04)
[2024-12-06 21:10] LABS: APTT > 200 Sec (23.4-35.0)
[2024-12-06] MEDS: DESYREL 25 MG PO (21:14)
[2024-12-06] MEDS: ARICEPT 10 MG PO (21:15)
[2024-12-06] MEDS: NEURONTIN 300 MG PO (21:15)
[2024-12-07 03:31] VITALS: BP 168/75
[2024-12-07 05:44] VITALS: BMI 31.1
[2024-12-07 06:25] LABS: Hematocrit 35.8 % (37.0-47.0); Hemoglobin 11.5 g/dL (12.0-16.0); Mean Corp Hgb Conc. 32.1 g/dL (33.0-37.0); Mean Corpuscular Volume 98.9 fL (81.0-99.0); Nucleated Red Blood Cells % 0 %; Platelet Count 172 10^3/uL (130-400); Red Cell Dist. Width 14.2 % (11.5-14.5)
[2024-12-07 06:42] LABS: APTT 89.9 Sec (23.4-35.0)
[2024-12-07 06:47] LABS: ALT (SGPT) 12 U/L (0-35); AST (SGOT) 18 U/L (14-36); Albumin 3.5 g/dl (3.5-5.0); Alkaline Phosphatase 80 U/L (38-126); Blood Urea Nitrogen 35 mg/dl (7-17); Calcium 8.6 mg/dl (8.4-10.2); Carbon Dioxide 33 mmol/L (22-30); Chloride 101 mmol/L (98-107); Estimated Creatinine Clearance 24 ml/min; Glucose 92 mg/dl (70-99); Potassium 3.7 mmol/L (3.5-5.1); Sodium 139 mmol/L (135-145); Total Protein 6.1 g/dl (6.3-8.2); eGFR 33.73
[2024-12-07 07:05] VITALS: BP 173/79
[2024-12-07] MEDS: BenGay-Like 1 APPLIC TOPICAL ×2 (07:44→19:56)
[2024-12-07] MEDS: NAMENDA 5 MG PO (07:44)
[2024-12-07] MEDS: APRESOLINE 50 MG PO ×2 (07:44→19:55)
[2024-12-07] MEDS: VITAMIN B-12 1000 MCG PO (07:45)
[2024-12-07] MEDS: DETROL LA 2 MG PO (07:45)
[2024-12-07] MEDS: TYLENOL 325 MG PO ×2 (07:45→19:55)
[2024-12-07] MEDS: VITAMIN D3 (cholecalciferol) 25 MCG PO (07:46)
[2024-12-07] MEDS: PACERONE 100 MG PO (07:46)
[2024-12-07] MEDS: LASIX 40 MG IV (09:36)
--- NOTE | 2024-12-07 10:36 | W.PN.CARDCBS ---
Addendum entered and electronically signed by Yogi Vazquez DO 12/07/24 13:01:
I saw and examined the patient.
The [employer] Operator's note was reviewed and I agree with the note.
Comment:
Plan:
Episode of PAFlutter this AM now broke back to sinus
She was previously deemed a poor anticoagulation candidate for her atrial fibrillation given history of subdural hematoma, however she is currently on IV anticoagulation with heparin given small right sided pulmonary embolus.
Continue amiodarone
Echo pending to reevaluate left ventricular systolic function.
Continue IV Lasix diuresis. (Patient was taking Lasix 20 mg p.o. daily prior to admission)
GDMT has been limited in the past: Aldactone stopped due to dizziness, beta-trinidad stopped due to bradycardia, SGLT2 inhibitor has been avoided secondary to frequent UTIs.
Losartan held for acute renal insufficiency on admission
Discussed with nursing
Original Note:
Today's Communication / Plan
-
Looks like patient went into A-fib versus atypical atrial flutter in the last hour on my review of telemetry, check ECG
Continue diuresis
Impression / Plan
-
Primary Lokie Driver: Dr. Bello
Assessment:
Presentation with SOB
Acute hypoxic respiratory insufficiency
Acute on chronic HFimpEF
Small R PE
Prolonged QTc
Recovered CM
Paroxysmal a-fib status post ablation, not on anticoagulation
History of CVA (Subdural hematoma status post craniotomy)
CKD stage IV
Dementia
History of right-sided breast cancer s/p lumpectomy, chemo, radiation
History of R DVT
Bilateral knee replacements
History of frequent UTIs
DNR code status
ECHO 07/10/24: EF 60 to 65%, no regional wall motion abnormalities noted, moderate concentric LVH, stage I diastolic dysfunction, mitral sclerosis, mild MR, aortic sclerosis, mild AR, mild TR, PASP 44 mmHg
Echo 12/07/2024: Report pending
Plan:
-Tele reviewed by me and patient appears to be in Afib vs atypical atrial flutter on tele. Check ECG now, ordered by me 12/07/24. Patient is asymptomatic
-Patient has known paroxysmal A-fib, but was in SR on the morning of 12/07/2024 and rhythm change appears to have happened within the last hour.
-Outpatient dose of amiodarone 100 mg daily was continued on admission, patient has not been on higher dose due to history of bradycardia. Will increase amiodarone to 200 mg daily starting 12/07/2024 due to recurrent atrial arrhythmia.
-Patient is not chronically on OAC due to a previous subdural hematoma, but currently tolerating heparin gtt for a small right-sided PE diagnosed on admission
-Weight is down 3 lbs overnight. Previous dry weight at last HF discharge on 07/20/2024 was 153 lbs and patient currently weighs 159 lbs on 12/07/2024
-Patient diuresing with Lasix 40 mg IV daily. Patient was taking Lasix 20 mg PO daily prior to admission
-Cre improved to 1.5 on my review of labs 12/07/2024
-EF was 60 to 65% by echo 07/10/2024 and follow-up echo pending for 12/07/2024
-GDMT has been limited due to dizziness on Aldactone in past
-Patient is not chronically on BB therapy due to bradycardia
-Patient is not chronically on SGLT2 inhibitor due to frequent UTIs
-Outpatient dose of losartan is on hold due to JEAN CLAUDE on admission
-QTc 475 ms on ECG 12/07/2024 that was reviewed by me
Progress Note - Lokie Driver
Subjective
Date of Service: December 07, 2024
Denies palpitation
Objective
Labs:
12/07/24 05:56
12/07/24 05:56
Labs
Hgb 11.5 g/dL (12.0-16.0) L 12/07/24 05:56
Hct 35.8 % (37.0-47.0) L 12/07/24 05:56
Plt Count 172 10^3/uL (130-400) 12/07/24 05:56
APTT 89.9 Sec (23.4-35.0) H 12/07/24 05:56
Sodium 139 mmol/L (135-145) 12/07/24 05:56
Potassium 3.7 mmol/L (3.5-5.1) 12/07/24 05:56
BUN 35 mg/dl (7-17) H 12/07/24 05:56
Creatinine 1.5 mg/dL (0.6-1.0) H 12/07/24 05:56
Glucose 92 mg/dl (70-99) 12/07/24 05:56
Vital Signs and I&O:
Vital Signs
Temp Pulse Resp BP Pulse Ox
97.5 F 57 16 141/57 95
12/07/24 07:05 12/07/24 09:36 12/07/24 07:05 12/07/24 09:36 12/07/24 07:05
Vital Signs
Temp Pulse Resp BP Pulse Ox
97.5 F 57 16 141/57 95
12/07/24 07:05 12/07/24 09:36 12/07/24 07:05 12/07/24 09:36 12/07/24 07:05
Intake & Output
12/05/24 12/06/24 12/07/24 12/08/24
06:59 06:59 06:59 06:59
Output Total 1450 / 1450
Balance -1450 / -1450
Physical Exam
Physical Exam
GEN: AAO x3
LUNGS: RA. No wheeze
CV: Afib with RVR on tele.
[2024-12-07 11:05] VITALS: BP 103/62
[2024-12-07] MEDS: HEPARIN 25000 UNITS/250 ML IV (12:19)
--- NOTE | 2024-12-07 12:45 | W.PN.HOSP.TC ---
Today's Communication/Plan
-
Monitor vital signs see plan
Continue with IV diuresis
Check echo
Check venous ultrasound
Discussed with spouse, called daughter as well, left voicemail
Continue with IV heparin
Assessment / Plan
Assessment / Plan
General: Well Developed, Well Nourished and No Apparent Distress
HEENT: NormoCephalic, Moist mucous membranes and Atraumatic
Respiratory: Clear
Cardiac: S1/S2, Regular Rhythm and Peripheral Edema; No Murmur or Rub
GI: Soft, Non Tender, Non Distended and Normal Bowel Sounds
Musculoskeletal: No Edema
Neuro: Nonfocal/grossly intact
Acute on chronic HFpEF exacerbation
-Cardiac BNP 6700
-Chest x-ray shows mild pulmonary vascular congestion
- CT PE shows tiny single right lower lobe subsegmental thromboembolus, mild diffuse hazy ground glass bases suspicious for mild pulmonary edema, cardiomegaly, reflux of contrast of right atrium into the IVC and hepatic veins indicating right heart
failure
-Echo from June shows EF of 60 to 65%, eccentric LVH, stage I diastolic
Repeat echo 12/07
Continue with IV Lasix
Hold losartan
hydralazine
Also on amiodarone
-Check echo
- Cardiology following
Check venous ultrasound
# Small right lower lobe subsegmental thromboemboli likely from sedentary status
# History of prior DVT
Continue with heparin drip, discussed with spouse, history of subdural hematoma around 2020 per spouse. Patient and spouse does not think there is any contraindication for anticoagulation. will closely monitor
- Check venous ultrasound
# pyuria
# History of frequent UTIs
- UA noted, urine culture without any growth
Paroxysmal atrial fibrillation
now in afib
- Continue amiodarone
CAD
Essential hypertension
Breast cancer
History of CVA
- Continue statin
CKD
-Baseline renal function around 1.6-1.7
monitor
- Renal function at baseline
History of cognitive defects
- Continue memantine
Pseudomonas UTI
DNR/DNI
DVT prophylaxis�heparin drip
I spent a total of 52 minutes with the patient or on the floor. More than 50% of this time involved counseling and coordination of care.
Anticipated Discharge: 24 - 48 hours
Subjective/Interval History
-
Date of Service: December 07, 2024
denies pain
Objective Data
-
Labs:
Laboratory Results
12/07/24 12/07/24
05:56 13:10
WBC 5.5
Hgb 11.5 L
Hct 35.8 L
Plt Count 172
APTT 89.9 H Pending
Sodium 139
Potassium 3.7
Chloride 101
Carbon Dioxide 33 H
BUN 35 H
Creatinine 1.5 H
Glucose 92
Calcium 8.6
Total Bilirubin 0.6
AST 18
ALT 12
Alkaline Phosphatase 80
Vital Signs:
Vital Signs
Temp Pulse Resp BP Pulse Ox
97.6 F 110 18 103/62 95
12/07/24 11:05 12/07/24 11:05 12/07/24 11:05 12/07/24 11:05 12/07/24 11:05
I&O
12/06/24 12/07/24 12/08/24
06:59 06:59 06:59
Output Total 1450 / 1450
Balance -1450 / -1450
[2024-12-07 14:26] LABS: APTT 152.7 Sec (23.4-35.0)
[2024-12-07 15:00] VITALS: BP 135/58
--- NOTE | 2024-12-07 15:01 | CM ---
Chart reviewed. Met with pt bedside. On O2 n/c. Lives with spouse in a 1 story home with a ramp at the entrance. Remote hx of HH after knee replacement surgery. NO hx of home o2 or SNF. DME in use: rollator and grab bars in [place]. No insecurities
identified. Obtained PCP name, RX, insurance and drug coverage.
Pt has caregiver 3 days/week in the morning for assistance with personal care. Pt does not know the agency name.
PCP: Dr. Kate
Rx: [facility] [place]
Plan: Home with caregivers.
[2024-12-07] MEDS: LIPITOR 40 MG PO (17:53)
[2024-12-07 19:29] VITALS: BP 131/56
[2024-12-07] MEDS: ARICEPT 10 MG PO (21:32)
[2024-12-07] MEDS: DESYREL 25 MG PO (21:32)
[2024-12-07] MEDS: NEURONTIN 300 MG PO (21:32)
[2024-12-07 22:09] LABS: APTT 46.4 Sec (23.4-35.0)
[2024-12-07] MEDS: HEPARIN 6100 UNITS IV (22:34)
[2024-12-07 23:12] VITALS: BP 127/57
[2024-12-08] VITALS (7 sets, daily range): BP systolic 107–155; BP diastolic 49–83; PULSE 61; O2SAT 97; BMI 31.1
[2024-12-08 05:08] LABS: Hematocrit 35.1 % (37.0-47.0); Hemoglobin 10.9 g/dL (12.0-16.0); Mean Corp Hgb Conc. 31.1 g/dL (33.0-37.0); Mean Corpuscular Volume 99.7 fL (81.0-99.0); Nucleated Red Blood Cells % 0 %; Platelet Count 175 10^3/uL (130-400); Red Cell Dist. Width 14.3 % (11.5-14.5)
[2024-12-08 05:22] LABS: Blood Urea Nitrogen 35 mg/dl (7-17); Calcium 8.5 mg/dl (8.4-10.2); Carbon Dioxide 34 mmol/L (22-30); Chloride 100 mmol/L (98-107); Estimated Creatinine Clearance 24 ml/min; Glucose 106 mg/dl (70-99); Potassium 3.6 mmol/L (3.5-5.1); Sodium 139 mmol/L (135-145); eGFR 33.73
[2024-12-08 05:25] LABS: APTT > 200 Sec (23.4-35.0)
[2024-12-08] MEDS: APRESOLINE 50 MG PO ×2 (08:53→20:03)
[2024-12-08] MEDS: PACERONE 100 MG PO (08:54)
[2024-12-08] MEDS: TYLENOL 325 MG PO ×2 (08:54→20:03)
[2024-12-08] MEDS: VITAMIN B-12 1000 MCG PO (08:54)
[2024-12-08] MEDS: DETROL LA 2 MG PO (08:55)
[2024-12-08] MEDS: VITAMIN D3 (cholecalciferol) 25 MCG PO (08:55)
[2024-12-08] MEDS: NAMENDA 5 MG PO (08:55)
[2024-12-08] MEDS: LASIX 40 MG IV ×2 (08:56→16:30)
[2024-12-08] MEDS: FLUSH (NSS) 1 FLUSH IV ×2 (08:56→16:30)
--- NOTE | 2024-12-08 09:12 | W.PN.CARDCBS ---
Today's Communication / Plan
-
Still volume overloaded. Echo with preserved ejection fraction with marked pulm hypertension and severe TR.
Increase Lasix to 40 mg IV twice daily.
Creatinine overall stable at 1.5.
With her small PE and paroxysmal atrial fibrillation and high [id number] score no ideal answer for anticoagulation. I would favor a short course of Eliquis 2.5 mg p.o. twice daily for 3 months and then reassess as outpatient risk/benefit.
Cont Hydralazine
Impression / Plan
-
Primary [employer] Foreperson: Dr. Bello
Assessment:
Presentation with SOB
Acute hypoxic respiratory insufficiency
Acute on chronic HFimpEF
Small R PE
Prolonged QTc
Recovered CM
Paroxysmal a-fib status post ablation, not on anticoagulation
History of CVA (Subdural hematoma status post craniotomy)
CKD stage IV
Dementia
History of right-sided breast cancer s/p lumpectomy, chemo, radiation
History of R DVT
Bilateral knee replacements
History of frequent UTIs
DNR code status
ECHO 07/10/24: EF 60 to 65%, no regional wall motion abnormalities noted, moderate concentric LVH, stage I diastolic dysfunction, mitral sclerosis, mild MR, aortic sclerosis, mild AR, mild TR, PASP 44 mmHg
Echo 12/07/2024: EF 60% , nl RV size and function. Mild aortic stenosis with mean gradient of 12, moderate to severe TR with PA pressure 71.
Plan:
-She is back in sinus rhythm today. Had some paroxysmal atrial fibrillation/atrial flutter yesterday.
-Outpatient dose of amiodarone 100 mg daily was continued on admission, patient has not been on higher dose due to history of bradycardia. Will increase amiodarone to 200 mg daily due to recurrent atrial arrhythmia.
-Patient is not chronically on OAC due to a previous subdural hematoma, but currently tolerating heparin gtt for a small right-sided PE diagnosed on admission.
-I would favor a short course of Eliquis 2.5 mg p.o. twice daily for 3 months with her pulmonary embolism, and atrial fibrillation. Obviously with her history of subdural we will need to be very careful and encourage avoidance of falls.
-Weight unchanged previous dry weight at last HF discharge on 07/20/2024 was 153 lbs and patient currently weighs 159 lbs on 12/07/2024
-Would increase Lasix to 40 mg IV twice daily.
-Cre stable at 1.5 on my review of labs 12/07/2024
-EF was 60 to 65% by echo 07/10/2024 and follow-up echo pending for 12/07/2024
-GDMT has been limited due to dizziness on Aldactone in past
-Patient is not chronically on BB therapy due to bradycardia
-Patient is not chronically on SGLT2 inhibitor due to frequent UTIs
-Outpatient dose of losartan is on hold due to JEAN CLAUDE on admission
-QTc 475 ms on ECG 12/07/2024 that was reviewed by me
Progress Note - [employer] Foreperson
Subjective
Date of Service: December 08, 2024
Remains somewhat short of and on oxygen. Denies chest pains. Denies history of recent falls. She is agreeable to consider anticoagulation.
Objective
Labs:
12/08/24 04:46
12/08/24 04:46
Labs
Hgb 10.9 g/dL (12.0-16.0) L 12/08/24 04:46
Hct 35.1 % (37.0-47.0) L 12/08/24 04:46
Plt Count 175 10^3/uL (130-400) 12/08/24 04:46
APTT > 200 Sec (23.4-35.0) H* 12/08/24 04:46
Sodium 139 mmol/L (135-145) 12/08/24 04:46
Potassium 3.6 mmol/L (3.5-5.1) 12/08/24 04:46
BUN 35 mg/dl (7-17) H 12/08/24 04:46
Creatinine 1.5 mg/dL (0.6-1.0) H 12/08/24 04:46
Glucose 106 mg/dl (70-99) H 12/08/24 04:46
Vital Signs and I&O:
Vital Signs
Temp Pulse Resp BP Pulse Ox
98.5 F 76 18 153/68 95
12/08/24 03:45 12/08/24 08:56 12/08/24 03:45 12/08/24 08:56 12/08/24 08:52
Vital Signs
Temp Pulse Resp BP Pulse Ox
98.5 F 76 18 153/68 95
12/08/24 03:45 12/08/24 08:56 12/08/24 03:45 12/08/24 08:56 12/08/24 08:52
Intake & Output
12/06/24 12/07/24 12/08/24 12/09/24
06:59 06:59 06:59 06:59
Intake Total 720 / 720
Output Total 1450 / 1450 800 / 800
Balance -1450 / -1450 -80 / -80
Physical Exam
Physical Exam
GEN: No distress, awake, Ox3
HEENT: supple, anicteric, mmm
LUNGS: CTA, no wheezes/rales
CV: Reg, S1/S2, 2/6 syst LSB, S3+
ABD: soft, BS+, NT/ND
EXT: ++ edema
NEURO: Gross non-focal
SKIN: No rash
--- NOTE | 2024-12-08 10:15 | CM ---
Chart reviewed, Met with pt bedside. Remains on O2. IMM given and placed on chart. No change in D/C plan
Plan: Home, resume with caregivers.
--- NOTE | 2024-12-08 12:34 | W.PN.HOSP.TC ---
Today's Communication/Plan
-
Monitor vital signs see plan
Transition IV heparin to Eliquis tonight
Continue with IV diuresis
PT evaluation
Wean oxygen as tolerated
Assessment / Plan
Assessment / Plan
General: Well Developed, Well Nourished and No Apparent Distress
HEENT: NormoCephalic, Moist mucous membranes and Atraumatic
Respiratory: Clear
Cardiac: S1/S2, Regular Rhythm and Peripheral Edema; No Murmur or Rub
GI: Soft, Non Tender, Non Distended and Normal Bowel Sounds
Musculoskeletal: No Edema
Neuro: Nonfocal/grossly intact
Acute on chronic HFpEF exacerbation
-Cardiac BNP 6700
-Chest x-ray shows mild pulmonary vascular congestion
- CT PE shows tiny single right lower lobe subsegmental thromboembolus, mild diffuse hazy ground glass bases suspicious for mild pulmonary edema, cardiomegaly, reflux of contrast of right atrium into the IVC and hepatic veins indicating right heart
failure
-Echo from June shows EF of 60 to 65%, eccentric LVH, stage I diastolic
Repeat echo 12/07 with EF 55%. Aortic stenosis
Continue with IV Lasix
Hold losartan
hydralazine
Also on amiodarone
- Cardiology following
Check venous ultrasound negative for DVT
# Small right lower lobe subsegmental thromboemboli likely from sedentary status
# History of prior DVT
Continue with heparin drip until 8pm tonite and then dc and start eliquis, discussed with spouse, history of subdural hematoma around 2020 per spouse. Given patient age and history of hematoma, would need to be cautious with anticoagulation. Agree
with cardiology that we will initiate 2.5 mg twice daily Eliquis and patient to follow-up outpatient for risk/benefit.
# pyuria
# History of frequent UTIs
- UA noted, urine culture without any growth
Paroxysmal atrial fibrillation
now in afib
- Continue amiodarone
CAD
Essential hypertension
Breast cancer
History of CVA
- Continue statin
CKD
-Baseline renal function around 1.6-1.7
monitor
- Renal function at baseline
History of cognitive defects
- Continue memantine
Pseudomonas UTI
DNR/DNI
DVT prophylaxis�heparin drip
Anticipated Discharge: 24 - 48 hours
Subjective/Interval History
-
Date of Service: December 08, 2024
Denies pain
Objective Data
-
Labs:
Laboratory Results
12/08/24 12/08/24
04:46 13:30
WBC 6.8
Hgb 10.9 L
Hct 35.1 L
Plt Count 175
APTT > 200 H* Pending
Sodium 139
Potassium 3.6
Chloride 100
Carbon Dioxide 34 H
BUN 35 H
Creatinine 1.5 H
Glucose 106 H
Calcium 8.5
Vital Signs:
Vital Signs
Temp Pulse Resp BP Pulse Ox
97.6 F 66 18 126/66 97
12/08/24 11:56 12/08/24 11:56 12/08/24 11:56 12/08/24 11:56 12/08/24 11:56
I&O
12/07/24 12/08/24 12/09/24
06:59 06:59 06:59
Intake Total 720 / 720
Output Total 1450 / 1450 800 / 800
Balance -1450 / -1450 -80 / -80
[2024-12-08 14:02] LABS: APTT 106.4 Sec (23.4-35.0)
--- NOTE | 2024-12-08 16:15 | PTCARENOTE ---
Pt AAO x3, anxious and talkative at times. PRATER; OOB to chair/bedside commode with assist x1/walker; unsteady w/OOB activity. VSS. Telemetry:NSR/SB. Maintained on nc 2lpm- pulse ox 97%, pt with (+)YANES/tachypnea. Abd soft, rounded, myranda PO well.
Voids on BSC; also incont at times. Heparin drip @ 900 units/hr (9 ml/hr) infusing via Rt forearm site without sx of infiltration. Pt to be transitioned to Eliquis later this evening. Resting in bed at present; no c/o. Will continue to monitor.
[2024-12-08] MEDS: LIPITOR 40 MG PO (18:00)
[2024-12-08] MEDS: ELIQUIS 2.5 MG PO (20:03)
[2024-12-08] MEDS: NEURONTIN 300 MG PO (21:26)
[2024-12-08] MEDS: DESYREL 25 MG PO (21:26)
[2024-12-08] MEDS: ARICEPT 10 MG PO (21:27)
[2024-12-09] VITALS (10 sets, daily range): BP systolic 118–168; BP diastolic 48–72; BMI 32.2
[2024-12-09] MEDS: APRESOLINE 50 MG PO (08:29)
[2024-12-09] MEDS: PACERONE 200 MG PO (08:29)
[2024-12-09] MEDS: DETROL LA 2 MG PO (08:29)
[2024-12-09] MEDS: TYLENOL 325 MG PO ×2 (08:29→19:36)
[2024-12-09] MEDS: ELIQUIS 2.5 MG PO ×2 (08:29→19:36)
[2024-12-09] MEDS: VITAMIN D3 (cholecalciferol) 25 MCG PO (08:30)
[2024-12-09] MEDS: VITAMIN B-12 1000 MCG PO (08:30)
[2024-12-09] MEDS: LASIX 40 MG IV ×2 (08:30→15:57)
[2024-12-09] MEDS: NAMENDA 5 MG PO (08:30)
[2024-12-09] MEDS: FLUSH (NSS) 2 FLUSH IV (08:31)
[2024-12-09 09:06] LABS: Hematocrit 33.0 % (37.0-47.0); Hemoglobin 10.3 g/dL (12.0-16.0); Mean Corp Hgb Conc. 31.2 g/dL (33.0-37.0); Mean Corpuscular Volume 100.0 fL (81.0-99.0); Nucleated Red Blood Cells % 0 %; Platelet Count 177 10^3/uL (130-400); Red Cell Dist. Width 14.2 % (11.5-14.5)
[2024-12-09 10:09] LABS: Blood Urea Nitrogen 39 mg/dl (7-17); Calcium 8.3 mg/dl (8.4-10.2); Carbon Dioxide 34 mmol/L (22-30); Chloride 100 mmol/L (98-107); Estimated Creatinine Clearance 21 ml/min; Glucose 86 mg/dl (70-99); Potassium 3.6 mmol/L (3.5-5.1); Sodium 138 mmol/L (135-145); eGFR 29.02
--- NOTE | 2024-12-09 12:22 | W.PN.HOSP.TC ---
Today's Communication/Plan
-
Monitor vitals
See plan
Continue with diuresis per cardiology
Continue Amio
Wean oxygen as tolerated
Assessment / Plan
Assessment / Plan
General: Well Developed, Well Nourished and No Apparent Distress
HEENT: NormoCephalic, Moist mucous membranes and Atraumatic
Respiratory: Clear
Cardiac: S1/S2, Regular Rhythm and Peripheral Edema; No Murmur or Rub
GI: Soft, Non Tender, Non Distended and Normal Bowel Sounds
Musculoskeletal: No Edema
Neuro: Nonfocal/grossly intact
Acute on chronic HFpEF exacerbation
-Cardiac BNP 6700
-Chest x-ray shows mild pulmonary vascular congestion
- CT PE shows tiny single right lower lobe subsegmental thromboembolus, mild diffuse hazy ground glass bases suspicious for mild pulmonary edema, cardiomegaly, reflux of contrast of right atrium into the IVC and hepatic veins indicating right heart
failure
-Echo from June shows EF of 60 to 65%, eccentric LVH, stage I diastolic
Repeat echo 12/07 with EF 55%. Aortic stenosis
Continue with IV Lasix
Hold losartan
hydralazine
Also on amiodarone
- Cardiology following
Check venous ultrasound negative for DVT
# Small right lower lobe subsegmental thromboemboli likely from sedentary status
# History of prior DVT
Continue with heparin drip until 8pm tonite and then dc and start eliquis, discussed with spouse, history of subdural hematoma around 2019 per spouse. Given patient age and history of hematoma, would need to be cautious with anticoagulation. Agree
with cardiology that we will initiate 2.5 mg twice daily Eliquis and patient to follow-up outpatient for risk/benefit.
# pyuria
# History of frequent UTIs
- UA noted, urine culture without any growth
Paroxysmal atrial fibrillation
now in afib
- Continue amiodarone
CAD
Essential hypertension
Breast cancer
History of CVA
- Continue statin
CKD
-Baseline renal function around 1.6-1.7
monitor
- Renal function at baseline
History of cognitive defects
- Continue memantine
Pseudomonas UTI
DNR/DNI
DVT prophylaxis�eliquis
Anticipated Discharge: 24 - 48 hours
Subjective/Interval History
-
Date of Service: December 09, 2024
Denies pain
Objective Data
-
Labs:
Laboratory Results
12/09/24
08:03
WBC 4.9
Hgb 10.3 L
Hct 33.0 L
Plt Count 177
Sodium 138
Potassium 3.6
Chloride 100
Carbon Dioxide 34 H
BUN 39 H
Creatinine 1.7 H
Glucose 86
Calcium 8.3 L
Vital Signs:
Vital Signs
Temp Pulse Resp BP Pulse Ox
97.2 F 64 16 123/59 95
12/09/24 11:21 12/09/24 11:21 12/09/24 11:21 12/09/24 11:21 12/09/24 11:21
I&O
12/08/24 12/09/24 12/10/24
06:59 06:59 06:59
Intake Total 720 / 720 1205 / 1205
Output Total 800 / 800 350 / 350 300 / 300
Balance -80 / -80 855 / 855 -300 / -300
--- NOTE | 2024-12-09 15:50 | W.PN.CARDCBS ---
Today's Communication / Plan
-
Continue IV Lasix and wean oxygen as able
Increase hydralazine for better blood pressure control
Impression / Plan
-
Primary Pyrotechnic Mixer: Dr. Bello
Assessment:
Presentation with SOB
Acute hypoxic respiratory insufficiency
Acute on chronic HFimpEF
Small R PE
Prolonged QTc
Recovered CM
Paroxysmal a-fib status post ablation, not on anticoagulation
History of CVA (Subdural hematoma status post craniotomy)
CKD stage IV
Dementia
History of right-sided breast cancer s/p lumpectomy, chemo, radiation
History of R DVT
Bilateral knee replacements
History of frequent UTIs
DNR code status
ECHO 07/10/24: EF 60 to 65%, no regional wall motion abnormalities noted, moderate concentric LVH, stage I diastolic dysfunction, mitral sclerosis, mild MR, aortic sclerosis, mild AR, mild TR, PASP 44 mmHg
Echo 12/07/2024: EF 60% , nl RV size and function. Mild aortic stenosis with mean gradient of 12, moderate to severe TR with PA pressure 71.
Plan:
-Volume assessment is challenging given her body habitus but suspect she is volume overloaded
-Still requiring supplemental O2, wean as able
-Continue IV Lasix twice daily
-Monitor renal function and electrolytes closely
-Ideally would have standing weights. Suspect the bed weights are inaccurate. Dry weight at last HF discharge on 07/20/2024 was 153 lbs.
-GDMT has been limited: dizziness on Aldactone in past, not chronically on BB therapy due to bradycardia, not chronically on SGLT2 inhibitor due to frequent UTIs
-Outpatient dose of losartan is on hold due to JEAN CLAUDE on admission
-Increase hydralazine for better BP control
-Echo here shows NL LVEF with severe range PASP
-Outpatient dose of amiodarone 100 mg daily was continued on admission, patient has not been on higher dose due to history of bradycardia. Will increase amiodarone to 200 mg daily due to recurrent atrial arrhythmia.
-Patient is not chronically on OAC due to a previous subdural hematoma, but currently tolerating heparin gtt for a small right-sided PE diagnosed on admission.
-Eliquis 2.5 mg p.o. twice daily for 3 months with her pulmonary embolism and atrial fibrillation would be reasonable
Progress Note - Pyrotechnic Mixer
Subjective
Date of Service: December 09, 2024
No acute overnight events. Resting comfortably in bed today. No cardiac complaints.
Objective
Labs:
12/09/24 08:03
12/09/24 08:03
Labs
Hgb 10.3 g/dL (12.0-16.0) L 12/09/24 08:03
Hct 33.0 % (37.0-47.0) L 12/09/24 08:03
Plt Count 177 10^3/uL (130-400) 12/09/24 08:03
APTT Cancelled 12/08/24 20:00
Sodium 138 mmol/L (135-145) 12/09/24 08:03
Potassium 3.6 mmol/L (3.5-5.1) 12/09/24 08:03
BUN 39 mg/dl (7-17) H 12/09/24 08:03
Creatinine 1.7 mg/dL (0.6-1.0) H 12/09/24 08:03
Glucose 86 mg/dl (70-99) 12/09/24 08:03
Vital Signs and I&O:
Vital Signs
Temp Pulse Resp BP Pulse Ox
97.3 F 57 18 163/67 96
12/09/24 15:10 12/09/24 15:48 12/09/24 15:10 12/09/24 15:48 12/09/24 15:10
Vital Signs
Temp Pulse Resp BP Pulse Ox
97.3 F 57 18 163/67 96
12/09/24 15:10 12/09/24 15:48 12/09/24 15:10 12/09/24 15:48 12/09/24 15:10
Intake & Output
12/07/24 12/08/24 12/09/24 12/10/24
06:59 06:59 06:59 06:59
Intake Total 720 / 720 1205 / 1205
Output Total 1450 / 1450 800 / 800 350 / 350 300 / 300
Balance -1450 / -1450 -80 / -80 855 / 855 -300 / -300
Physical Exam
Physical Exam
Gen: NAD, AA
HEENT: NC/AT, sclera anicteric
Neck: No JVD
CV: RRR, NL s1/s2
Lungs: No increased WOB on 2L NC
Abd: S/ND
Ext: Trace LE edema
Skin: Warm, dry
Neuro: Non-focal
--- NOTE | 2024-12-09 15:59 | PTCARENOTE ---
Dr. Fang aware of increase in pt's creatinine to 1.7 from 1.5 yesterday. MD hopper with pt receiving afternoon dose of Lasix 40mg IV as ordered.
[2024-12-09] MEDS: LIPITOR 40 MG PO (17:44)
--- NOTE | 2024-12-09 18:15 | PTCARENOTE ---
Pt's 1500 BP was 166/72, then 163/67 on reassessment. Pt is asymptomatic. Rechecked 191/79, HR 61, still asymptomatic. Cards did increase her Hydralazine to 100mg BID from 50mg to start at 1999. Made Dr. Tran aware, requesting a manual BP. Manual
BP was 168/48 at 1805- made Dr. Tran aware, no change in orders.
[2024-12-09] MEDS: APRESOLINE 100 MG PO (19:36)
[2024-12-09] MEDS: NEURONTIN 300 MG PO (21:17)
[2024-12-09] MEDS: DESYREL 25 MG PO (21:17)
[2024-12-09] MEDS: ARICEPT 10 MG PO (21:17)
[2024-12-10 03:30] VITALS: BP 137/49
[2024-12-10 05:59] VITALS: BMI 30.7
[2024-12-10 06:27] LABS: Hematocrit 34.7 % (37.0-47.0); Hemoglobin 10.8 g/dL (12.0-16.0); Mean Corp Hgb Conc. 31.1 g/dL (33.0-37.0); Mean Corpuscular Volume 99.7 fL (81.0-99.0); Platelet Count 179 10^3/uL (130-400); Red Cell Dist. Width 14.1 % (11.5-14.5)
[2024-12-10 06:46] LABS: Blood Urea Nitrogen 42 mg/dl (7-17); Calcium 9.1 mg/dl (8.4-10.2); Carbon Dioxide 35 mmol/L (22-30); Chloride 102 mmol/L (98-107); Estimated Creatinine Clearance 21 ml/min; Glucose 100 mg/dl (70-99); Potassium 3.6 mmol/L (3.5-5.1); Sodium 141 mmol/L (135-145); eGFR 29.02
[2024-12-10 07:05] VITALS: BP 148/58
[2024-12-10] MEDS: APRESOLINE 100 MG PO ×2 (10:39→20:17)
[2024-12-10] MEDS: NAMENDA 5 MG PO (10:40)
[2024-12-10] MEDS: VITAMIN D3 (cholecalciferol) 25 MCG PO (10:40)
[2024-12-10] MEDS: ELIQUIS 2.5 MG PO ×2 (10:40→20:05)
[2024-12-10] MEDS: VITAMIN B-12 1000 MCG PO (10:40)
[2024-12-10] MEDS: LASIX 40 MG IV ×2 (10:40→18:46)
[2024-12-10] MEDS: PACERONE 200 MG PO (10:40)
[2024-12-10] MEDS: TYLENOL 325 MG PO ×2 (10:40→20:05)
[2024-12-10] MEDS: DETROL LA 2 MG PO (10:40)
[2024-12-10] MEDS: FLUSH (NSS) 2 FLUSH IV (10:41)
[2024-12-10 11:40] VITALS: BP 147/68
--- NOTE | 2024-12-10 12:20 | W.PN.HOSP.TC ---
Today's Communication/Plan
-
Monitor vitals
See plan
Continue with IV diuresis
Hydralazine
Home O2 evaluation prior to discharge
Hopeful DC in 24 to 48 hours
Assessment / Plan
Assessment / Plan
General: Well Developed, Well Nourished and No Apparent Distress
HEENT: NormoCephalic, Moist mucous membranes and Atraumatic
Respiratory: Clear
Cardiac: S1/S2, Regular Rhythm and Peripheral Edema; No Murmur or Rub
GI: Soft, Non Tender, Non Distended and Normal Bowel Sounds
Musculoskeletal: No Edema
Neuro: Nonfocal/grossly intact
Acute on chronic HFpEF exacerbation
Acute hypoxic respiratory insufficiency likely secondary to above, currently on 2 L O2. Will need home O2 evaluation prior to discharge. Per O2 evaluation 12/09, need 2 L O2 with ambulation
-Cardiac BNP 6700
-Chest x-ray shows mild pulmonary vascular congestion
- CT PE shows tiny single right lower lobe subsegmental thromboembolus, mild diffuse hazy ground glass bases suspicious for mild pulmonary edema, cardiomegaly, reflux of contrast of right atrium into the IVC and hepatic veins indicating right heart
failure
-Echo from June shows EF of 60 to 65%, eccentric LVH, stage I diastolic
Repeat echo 12/07 with EF 55%. Aortic stenosis
Continue with IV Lasix
Hold losartan
Continue hydralazine, increased
Also on amiodarone
- Cardiology following
Check venous ultrasound negative for DVT
# Small right lower lobe subsegmental thromboemboli likely from sedentary status
# History of prior DVT
discussed with spouse, history of subdural hematoma around 2019 per spouse. Given patient age and history of hematoma, would need to be cautious with anticoagulation. Agree with cardiology that we will initiate 2.5 mg twice daily Eliquis and
patient to follow-up outpatient for risk/benefit.
# pyuria
# History of frequent UTIs
- UA noted, urine culture without any growth
Paroxysmal atrial fibrillation
Went into A-fib, now in normal sinus
- Continue amiodarone
CAD
Essential hypertension
Breast cancer
History of CVA
- Continue statin
CKD
-Baseline renal function around 1.6-1.7
monitor
- Renal function at baseline
History of cognitive defects
- Continue memantine
Pseudomonas UTI
DNR/DNI
DVT prophylaxis�eliquis
Anticipated Discharge: Within 24 hours
Subjective/Interval History
-
Date of Service: December 10, 2024
Denies pain
Objective Data
-
Labs:
Laboratory Results
12/10/24
05:58
WBC 6.1
Hgb 10.8 L
Hct 34.7 L
Plt Count 179
Sodium 141
Potassium 3.6
Chloride 102
Carbon Dioxide 35 H
BUN 42 H
Creatinine 1.7 H
Glucose 100 H
Calcium 9.1
Vital Signs:
Vital Signs
Temp Pulse Resp BP Pulse Ox
98.0 F 63 18 147/68 92
12/10/24 11:40 12/10/24 11:40 12/10/24 11:40 12/10/24 11:40 12/10/24 11:40
I&O
12/09/24 12/10/24 12/11/24
06:59 06:59 06:59
Intake Total 1205 / 1205 264 / 264
Output Total 350 / 350 300 / 300
Balance 855 / 855 -36 / -36
--- NOTE | 2024-12-10 13:29 | W.PN.CARDCBS ---
Today's Communication / Plan
-
Continue IV Lasix -hopefully can transition to oral in the next 24 to 48 hours
Encouraged out of bed to chair
Impression / Plan
-
Primary Software Engineer Intern: Dr. Bello
Assessment:
Presentation with SOB
Acute hypoxic respiratory insufficiency
Acute on chronic HFimpEF
Small R PE
Prolonged QTc
Recovered CM
Paroxysmal a-fib status post ablation, not on anticoagulation
History of CVA (Subdural hematoma status post craniotomy)
CKD stage IV
Dementia
History of right-sided breast cancer s/p lumpectomy, chemo, radiation
History of R DVT
Bilateral knee replacements
History of frequent UTIs
DNR code status
ECHO 07/10/24: EF 60 to 65%, no regional wall motion abnormalities noted, moderate concentric LVH, stage I diastolic dysfunction, mitral sclerosis, mild MR, aortic sclerosis, mild AR, mild TR, PASP 44 mmHg
Echo 12/07/2024: EF 60% , nl RV size and function. Mild aortic stenosis with mean gradient of 12, moderate to severe TR with PA pressure 71.
Plan:
-Volume assessment is challenging given her body habitus but suspect she is volume overloaded
-Still requiring supplemental O2, wean as able
-Continue IV Lasix twice daily
-Monitor renal function and electrolytes closely
-Ideally would have standing weights. Suspect the bed weights are inaccurate. Dry weight at last HF discharge on 07/20/2024 was 153 lbs.
-GDMT has been limited: dizziness on Aldactone in past, not chronically on BB therapy due to bradycardia, not chronically on SGLT2 inhibitor due to frequent UTIs
-Outpatient dose of losartan is on hold due to JEAN CLAUDE on admission
-Hydralazine increased for better BP control
-Echo here shows NL LVEF with severe range PASP
-Outpatient dose of amiodarone 100 mg daily was continued on admission, patient has not been on higher dose due to history of bradycardia. Increased to 200 mg daily due to recurrent atrial arrhythmia.
-Patient is not chronically on OAC due to a previous subdural hematoma, but currently tolerating heparin gtt for a small right-sided PE diagnosed on admission.
-Eliquis 2.5 mg p.o. twice daily for 3 months with her pulmonary embolism and atrial fibrillation would be reasonable
Progress Note - Software Engineer Intern
Subjective
Date of Service: December 10, 2024
No acute overnight events. Resting comfortably in bed. No shortness of breath at rest but remains on oxygen.
Objective
Labs:
12/10/24 05:58
12/10/24 05:58
Labs
Hgb 10.8 g/dL (12.0-16.0) L 12/10/24 05:58
Hct 34.7 % (37.0-47.0) L 12/10/24 05:58
Plt Count 179 10^3/uL (130-400) 12/10/24 05:58
APTT Cancelled 12/08/24 20:00
Sodium 141 mmol/L (135-145) 12/10/24 05:58
Potassium 3.6 mmol/L (3.5-5.1) 12/10/24 05:58
BUN 42 mg/dl (7-17) H 12/10/24 05:58
Creatinine 1.7 mg/dL (0.6-1.0) H 12/10/24 05:58
Glucose 100 mg/dl (70-99) H 12/10/24 05:58
Vital Signs and I&O:
Vital Signs
Temp Pulse Resp BP Pulse Ox
98.0 F 63 18 147/68 92
12/10/24 11:40 12/10/24 11:40 12/10/24 11:40 12/10/24 11:40 12/10/24 11:40
Vital Signs
Temp Pulse Resp BP Pulse Ox
98.0 F 63 18 147/68 92
12/10/24 11:40 12/10/24 11:40 12/10/24 11:40 12/10/24 11:40 12/10/24 11:40
Intake & Output
12/08/24 12/09/24 12/10/24 12/11/24
06:59 06:59 06:59 06:59
Intake Total 720 / 720 1205 / 1205 264 / 264
Output Total 800 / 800 350 / 350 300 / 300
Balance -80 / -80 855 / 855 -36 / -36
Physical Exam
Physical Exam
Gen: NAD, AA
HEENT: NC/AT, sclera anicteric
Neck: No JVD
CV: RRR, NL s1/s2, no M/R/G
Lungs: CTAB on 2L NC
Abd: S/ND
Ext: No LE edema
Skin: Warm, dry
Neuro: Non-focal
--- NOTE | 2024-12-10 13:30 | PTCARENOTE ---
Pt taken off the O2 at rest prior to sitting in chair, SPO2 dropped to 82% on RA, asymptomatic. Placed O2 back on at 2L, SPO2 up to 97% on the 2L of O2. Assisted pt to the chair. Made Dr. Tran aware of above.
[2024-12-10 15:05] VITALS: BP 113/50
[2024-12-10] MEDS: LIPITOR 40 MG PO (18:46)
[2024-12-10 19:54] VITALS: BP 109/57
[2024-12-10] MEDS: ARICEPT 10 MG PO (21:34)
[2024-12-10] MEDS: DESYREL 25 MG PO (21:34)
[2024-12-10] MEDS: NEURONTIN 300 MG PO (21:34)
[2024-12-10 23:42] VITALS: BP 135/55
[2024-12-11] VITALS (7 sets, daily range): BP systolic 105–181; BP diastolic 48–71; PULSE 60; O2SAT 97; BMI 31.2
[2024-12-11] MEDS: TYLENOL 325 MG PO ×2 (08:44→19:54)
[2024-12-11] MEDS: DETROL LA 2 MG PO (08:44)
[2024-12-11] MEDS: PACERONE 200 MG PO (08:45)
[2024-12-11] MEDS: VITAMIN D3 (cholecalciferol) 25 MCG PO (08:45)
[2024-12-11] MEDS: APRESOLINE 100 MG PO ×2 (08:45→19:55)
[2024-12-11] MEDS: NAMENDA 5 MG PO (08:46)
[2024-12-11] MEDS: ELIQUIS 2.5 MG PO ×2 (08:47→19:54)
[2024-12-11] MEDS: VITAMIN B-12 1000 MCG PO (08:47)
[2024-12-11 09:55] LABS: Hematocrit 39.3 % (37.0-47.0); Hemoglobin 12.3 g/dL (12.0-16.0); Mean Corp Hgb Conc. 31.3 g/dL (33.0-37.0); Mean Corpuscular Volume 102.1 fL (81.0-99.0); Nucleated Red Blood Cells % 0 %; Platelet Count 198 10^3/uL (130-400); Red Cell Dist. Width 14.4 % (11.5-14.5)
[2024-12-11 10:22] LABS: Blood Urea Nitrogen 46 mg/dl (7-17); Calcium 9.3 mg/dl (8.4-10.2); Carbon Dioxide 39 mmol/L (22-30); Chloride 97 mmol/L (98-107); Estimated Creatinine Clearance 22 ml/min; Glucose 90 mg/dl (70-99); Potassium 3.5 mmol/L (3.5-5.1); Sodium 141 mmol/L (135-145); eGFR 31.21
--- NOTE | 2024-12-11 10:52 | WOUNDNOTE ---
WOC RN note: Patient admitted with CHF. Patient for discharge to home today or tomorrow. Patient has caregiver visits at home.
See H&P for complete history.
PMH: a fib, CAD, CHF, HTN,
Wound Location and type/assessment: Patient admitted with:
Appetite:
Pressure redistribution devices in place:
Plan:
Will confirm orders with hospitalist and update nurse.
Updated care plan and will follow as needed.
Note to case management of equipment requested for discharge:
Recommend follow up at wound care center upon discharge.
--- NOTE | 2024-12-11 10:58 | WOUNDNOTE ---
WO RN note: Patient admitted with CHF. Patient for discharge to home today or tomorrow. Patient has caregiver visits at home.
See H&P for complete history.
PMH: a fib, CAD, CHF, HTN, breast cancer, R breast lumpectom, CVA, cognitive deficit, DVT, cardiac ablation, bilateral knee replacement, CKD, subdural hematoma 2019.
Wound Location and type/assessment: Patient admitted with: LLE deep dermal venous stasis ulcer, pink. +Pedal pulses (R palpable, L easily heard via portable Doppler). Trace LLE edema. Sacrum with small dermal opening suspect r/t moisture.
Appetite: good.
Pressure redistribution devices in place: [employer] Accumax. Patient can turn slowly in bed.
Plan: Dressing changed LLE. Patient incontinent of large amount of urine. Silicone border foam applied to sacrum. Heels off bed with pillow. Air chair cushion and foam turning wedge given. Discussed with RN Cornelius.
Confirmed orders with Dr. Hansen including knee high Tubigrip.
Updated care plan and will follow as needed.
Note to case management requested for discharge: VN services. Discussed with LARRY Dawson.
Recommend follow up at wound care center upon discharge.
--- NOTE | 2024-12-11 11:07 | W.PN.HOSP.TC ---
Today's Communication/Plan
-
IV lasix per card
Assessment / Plan
Assessment / Plan
A/P:
# Acute on chronic HFpEF
# Acute hypoxic respiratory insufficiency secondary to above
BNP 6700
Chest x-ray showed mild pulmonary vascular congestion
Echo from June showed EF 60 to 65%, eccentric LVH, stage I diastolic
Repeat echo 12/07 with EF 55%. Aortic stenosis
Currently on 2L [place]. Will need home O2 evaluation prior to discharge. Per O2 evaluation 12/09, need 2 L O2 with ambulation
Continue with IV Lasix 40 mg BID
ESCORT SERVICE ATTENDANT losartan on hold
Continue ESCORT SERVICE ATTENDANT hydralazine, increased to 100 mg BID (ESCORT SERVICE ATTENDANT 50 mg BID)
Cont ESCORT SERVICE ATTENDANT amiodarone
Cardiology following
# Small right lower lobe subsegmental thromboembolus, likely from sedentary status
# History of prior DVT
Pt with history of subdural hematoma around 2019 per spouse.
Proceed with OAC with caution in setting of pt's age and history of hematoma
Per cardiology, initiated Eliquis 2.5 mg twice daily
Patient to follow-up outpatient
# pyuria
# History of frequent UTIs
UA noted, urine culture without significant growth
# Paroxysmal atrial fibrillation
Went into A-fib, now in normal sinus
Continue amiodarone
Per cardiology, initiated Eliquis 2.5 mg twice daily
# CAD
# Essential hypertension
# Breast cancer
# History of CVA
Continue statin
# CKD stage 4
Baseline renal function around 1.6
monitor BMP
# History of cognitive defects
Continue memantine
DNR/DNI
DVT prophylaxis�eliquis
Dispo: PT cleared for HH
DW RN
updated on the phone
total time spent 51 min
Anticipated Discharge: 24 - 48 hours
Subjective/Interval History
-
Date of Service: December 11, 2024
Objective Data
-
Labs:
Laboratory Results
12/11/24
08:37
WBC 5.2
Hgb 12.3
Hct 39.3
Plt Count 198
Sodium 141
Potassium 3.5
Chloride 97 L
Carbon Dioxide 39 H
BUN 46 H
Creatinine 1.6 H
Glucose 90
Calcium 9.3
Vital Signs:
Vital Signs
Temp Pulse Resp BP Pulse Ox
36.3 C 73 16 181/71 97
12/11/24 07:30 12/11/24 08:45 12/11/24 07:30 12/11/24 08:45 12/11/24 07:30
I&O
12/10/24 12/11/24 12/12/24
06:59 06:59 06:59
Intake Total 264 / 264 960 / 960
Output Total 300 / 300 100 / 100
Balance -36 / -36 860 / 860
Review of Systems
-
History Source: Patient
All other systems: Reviewed and negative
Physical Exam
-
General: Well Developed, Well Nourished, Comfortable and Conversant
HEENT: Normocephalic, Atraumatic and Oxygen (2L NC)
Respiratory: Clear to Auscultation and Non Labored Respirations; Negative Accessory Resp Muscle Use
Cardiac: Regular Rhythm and S1/S2
GI: Soft, Nontender and Nondistended
Musculoskeletal: No Clubbing, No Cyanosis and No Edema
Skin: Warm
Neuro: Awake and Alert
Psych: Calm and Intact Judgement/Insight (somewhat)
Data Reviewed
-
CT Scan: Report Reviewed by me
Labs: Labs Reviewed by me
[2024-12-11] MEDS: LASIX 40 MG IV ×2 (11:25→16:14)
--- NOTE | 2024-12-11 11:48 | CM ---
Chart Reviewed. Met with pt at bedside and spoke to her via phone, on speaker, about timing of discharge. Informed them that the doctor did not discharge her today.
Continues on O2 at 2 LPM. Will get O2 eval prior to DC.
PT rec HH. CM presented pt with options for VN and she chose [facility]. [facility] referral made to [facility].
Plan: Home with [facility] and possibly O2. Will follow for D/C needs
--- NOTE | 2024-12-11 13:10 | VNURNOTE ---
Home Health Liaison met with patient at bedside to discuss [facility] nurse/therapy, visits, schedule and homebound status. Patient is agreeable and understands that visits at home will be 2-3 x per week to assess and teach medical management. Patient
is aware that [facility] will contact them for start of care in 1-2 days after discharge from . Provided contact number for [facility]. Patient confirms that she has a scale at home. Watching if new home 02 needs. Eval to be ordered closer to [place].
PM [facility] referral completed in [facility].
--- NOTE | 2024-12-11 13:44 | W.PN.CARDCBS ---
Today's Communication / Plan
-
Diurese
Monitor renal function with diuresis
Wean O2 as able
Add Imdur to hydralazine for further afterload reduction
Impression / Plan
-
Primary Paralegal Instructor: Dr. Bello
Assessment:
Presentation with SOB
Acute hypoxic respiratory insufficiency
Acute on chronic HFimpEF
Small R PE
Prolonged QTc
Recovered CM
Paroxysmal a-fib status post ablation, not on anticoagulation
History of CVA (Subdural hematoma status post craniotomy)
CKD stage IV
Dementia
History of right-sided breast cancer s/p lumpectomy, chemo, radiation
History of R DVT
Bilateral knee replacements
History of frequent UTIs
DNR code status
ECHO 07/10/24: EF 60 to 65%, no regional wall motion abnormalities noted, moderate concentric LVH, stage I diastolic dysfunction, mitral sclerosis, mild MR, aortic sclerosis, mild AR, mild TR, PASP 44 mmHg
Echo 12/07/2024: EF 60% , nl RV size and function. Mild aortic stenosis with mean gradient of 12, moderate to severe TR with PA pressure 71.
Plan:
-Volume assessment is challenging given her body habitus but suspect she is volume overloaded
-Still requiring supplemental O2, wean as able
-Continue IV Lasix twice daily
-Monitor renal function and electrolytes closely; Creatinine relatively stable at 1.6.
-Ideally would have standing weights. Suspect the bed weights are inaccurate. Dry weight at last HF discharge on 07/20/2024 was 153 lbs.
-GDMT has been limited: dizziness on Aldactone in past, not chronically on BB therapy due to bradycardia, not chronically on SGLT2 inhibitor due to frequent UTIs
-Outpatient dose of losartan is on hold due to JEAN CLAUDE on admission
-Hydralazine increased for better BP control. Add Imdur 30 mg daily
-Echo here shows NL LVEF with severe range PASP
Paroxysmal atrial fibrillation currently in sinus rhythm
-Outpatient dose of amiodarone 100 mg daily was continued on admission; Increased to 200 mg daily due to recurrent atrial arrhythmia.
-Eliquis 2.5 mg twice daily initiated
Small right lower lobe subsegmental PE with history of prior DVT. Patient also has a history of subdural hematoma around 2019.
-Patient is not chronically on OAC due to a previous subdural hematoma, but Tolerated heparin gtt for a small right-sided PE diagnosed on admission.
-Transition from IV heparin to Eliquis 2.5 mg p.o. twice daily
Discharge planning per primary
Progress Note - Paralegal Instructor
Subjective
Date of Service: December 11, 2024
Patient was seen and examined. Offers no new complaints. Remains on nasal cannula O2
Objective
Labs:
12/11/24 08:37
12/11/24 08:37
Labs
Hgb 12.3 g/dL (12.0-16.0) 12/11/24 08:37
Hct 39.3 % (37.0-47.0) 12/11/24 08:37
Plt Count 198 10^3/uL (130-400) 12/11/24 08:37
APTT Cancelled 12/08/24 20:00
Sodium 141 mmol/L (135-145) 12/11/24 08:37
Potassium 3.5 mmol/L (3.5-5.1) 12/11/24 08:37
BUN 46 mg/dl (7-17) H 12/11/24 08:37
Creatinine 1.6 mg/dL (0.6-1.0) H 12/11/24 08:37
Glucose 90 mg/dl (70-99) 12/11/24 08:37
Vital Signs and I&O:
Vital Signs
Temp Pulse Resp BP Pulse Ox
97.7 F 59 18 151/66 95
12/11/24 11:12 12/11/24 11:25 12/11/24 11:12 12/11/24 11:25 12/11/24 11:12
Vital Signs
Temp Pulse Resp BP Pulse Ox
97.7 F 59 18 151/66 95
12/11/24 11:12 12/11/24 11:25 12/11/24 11:12 12/11/24 11:25 12/11/24 11:12
Intake & Output
12/09/24 12/10/24 12/11/24 12/12/24
06:59 06:59 06:59 06:59
Intake Total 1205 / 1205 264 / 264 960 / 960
Output Total 350 / 350 300 / 300 100 / 100
Balance 855 / 855 -36 / -36 860 / 860
Physical Exam
Physical Exam
Gen: NAD, AA
HEENT: NC/AT, sclera anicteric
CV: RRR, NL s1/s2, no M/R/G
Lungs: CTAB on 2L NC
Abd: S/ND + BS
Ext: No LE edema
[2024-12-11] MEDS: IMDUR (EXTENDED RELEASE) 30 MG PO (16:13)
[2024-12-11] MEDS: LIPITOR 40 MG PO (16:13)
[2024-12-11] MEDS: ARICEPT 10 MG PO (19:55)
[2024-12-11] MEDS: DESYREL 25 MG PO (19:55)
[2024-12-11] MEDS: NEURONTIN 300 MG PO (19:55)
[2024-12-12] VITALS (7 sets, daily range): BP systolic 110–126; BP diastolic 49–58; BMI 30.4
[2024-12-12 07:56] LABS: Hematocrit 34.0 % (37.0-47.0); Hemoglobin 10.7 g/dL (12.0-16.0); Mean Corp Hgb Conc. 31.5 g/dL (33.0-37.0); Mean Corpuscular Volume 101.2 fL (81.0-99.0); Platelet Count 182 10^3/uL (130-400); Red Cell Dist. Width 14.2 % (11.5-14.5)
[2024-12-12 08:21] LABS: Blood Urea Nitrogen 57 mg/dl (7-17); Calcium 9.0 mg/dl (8.4-10.2); Carbon Dioxide 37 mmol/L (22-30); Chloride 99 mmol/L (98-107); Estimated Creatinine Clearance 20 ml/min; Glucose 95 mg/dl (70-99); Magnesium 2.3 mg/dl (1.6-2.3); Potassium 3.6 mmol/L (3.5-5.1); Sodium 139 mmol/L (135-145); eGFR 27.10
--- NOTE | 2024-12-12 08:53 | W.PN.HOSP.TC ---
Today's Communication/Plan
-
see A/P
Assessment / Plan
Assessment / Plan
A/P:
# Acute on chronic HFpEF
# Acute hypoxic respiratory insufficiency secondary to above
BNP 6700
Chest x-ray showed mild pulmonary vascular congestion
Echo from June showed EF 60 to 65%, eccentric LVH, stage I diastolic
Repeat echo 12/07 with EF 55%. Aortic stenosis
Currently on 2L NC. Will need home O2 evaluation prior to discharge. Per O2 evaluation 12/09, need 2 L O2 with ambulation
Continue with IV Lasix 40 mg BID
IT LEAD losartan on hold
Continue IT LEAD hydralazine, increased to 100 mg BID (IT LEAD 50 mg BID)
Added Imdur 30 mg daily
Cont IT LEAD amiodarone
Cardiology following
# Small right lower lobe subsegmental thromboembolus, likely from sedentary status
# History of prior DVT
Pt with history of subdural hematoma around 2019 per spouse.
Proceed with OAC with caution in setting of pt's age and history of hematoma
Per cardiology, initiated Eliquis 2.5 mg twice daily
Patient to follow-up outpatient
# History of frequent UTIs
UA noted, urine culture without significant growth
# Paroxysmal atrial fibrillation
Went into A-fib, now in normal sinus
Continue amiodarone
Per cardiology, initiated Eliquis 2.5 mg twice daily
# CAD
# Essential hypertension
# Breast cancer
# History of CVA
Continue statin
# CKD stage 4
Baseline renal function around 1.6
monitor BMP
# History of cognitive defects
Continue memantine
DNR/DNI
DVT prophylaxis�eliquis
Dispo: PT cleared for HH
DW RN
Anticipated Discharge: 24 - 48 hours
Subjective/Interval History
-
Date of Service: December 12, 2024
Objective Data
-
Labs:
Laboratory Results
12/12/24
07:25
WBC 5.8
Hgb 10.7 L
Hct 34.0 L
Plt Count 182
Sodium 139
Potassium 3.6
Chloride 99
Carbon Dioxide 37 H
BUN 57 H
Creatinine 1.8 H
Glucose 95
Calcium 9.0
Vital Signs:
Vital Signs
Temp Pulse Resp BP Pulse Ox
36.6 C 61 16 120/58 94
12/12/24 07:05 12/12/24 07:05 12/12/24 07:05 12/12/24 07:05 12/12/24 07:05
I&O
12/11/24 12/12/24 12/13/24
06:59 06:59 06:59
Intake Total 960 / 960 1080 / 1080
Output Total 100 / 100 275 / 275
Balance 860 / 860 805 / 805
Review of Systems
-
History Source: Patient
All other systems: Reviewed and negative
Physical Exam
-
General: Well Developed, Well Nourished, Comfortable, Conversant and Appears Chronically Ill
HEENT: Normocephalic, Atraumatic and Oxygen (2L NC)
Respiratory: Clear to Auscultation and Non Labored Respirations; Negative Accessory Resp Muscle Use
Cardiac: Regular Rhythm and S1/S2
GI: Soft, Nontender and Nondistended
Musculoskeletal: No Clubbing, No Cyanosis and No Edema
Skin: Warm
Neuro: Awake and Alert
Psych: Calm and Intact Judgement/Insight (somewhat)
Data Reviewed
-
CT Scan: Report Reviewed by me
Labs: Labs Reviewed by me
[2024-12-12] MEDS: APRESOLINE 100 MG PO ×2 (09:16→19:55)
[2024-12-12] MEDS: DETROL LA 2 MG PO (09:16)
[2024-12-12] MEDS: IMDUR (EXTENDED RELEASE) 30 MG PO (09:16)
[2024-12-12] MEDS: VITAMIN B-12 1000 MCG PO (09:16)
[2024-12-12] MEDS: ELIQUIS 2.5 MG PO ×2 (09:17→19:56)
[2024-12-12] MEDS: NAMENDA 5 MG PO (09:17)
[2024-12-12] MEDS: PACERONE 200 MG PO (09:17)
[2024-12-12] MEDS: VITAMIN D3 (cholecalciferol) 25 MCG PO (09:18)
[2024-12-12] MEDS: LASIX 40 MG IV (09:18)
[2024-12-12] MEDS: TYLENOL 325 MG PO ×2 (09:18→19:56)
--- NOTE | 2024-12-12 10:57 | W.PN.CARDCBS ---
Today's Communication / Plan
-
Hold further IV Lasix
Likely transition to oral Lasix on 12/13/2024. Would recommend increasing outpatient Lasix dose to 40 mg once daily.
Continue to hold outpatient Losartan. Patient is now on hydralazine/Imdur due to acute on chronic renal insufficiency.
Continue Eliquis anticoagulation given small pulmonary embolism this admission as well as history of PAF
Home O2 assessment; recommend outpatient pulmonary evaluation
Outpatient cardiac follow-up to be arranged
Discharge planning
Impression / Plan
-
Primary Smoke And Flame Specialist: Dr. Bello
Assessment:
Presentation with SOB
Acute hypoxic respiratory insufficiency
Acute on chronic HFimpEF
Small R PE
Prolonged QTc
Recovered CM
Paroxysmal a-fib status post ablation, not on anticoagulation
History of CVA (Subdural hematoma status post craniotomy)
CKD stage IV
Dementia
History of right-sided breast cancer s/p lumpectomy, chemo, radiation
History of R DVT
Bilateral knee replacements
History of frequent UTIs
DNR code status
ECHO 07/10/24: EF 60 to 65%, no regional wall motion abnormalities noted, moderate concentric LVH, stage I diastolic dysfunction, mitral sclerosis, mild MR, aortic sclerosis, mild AR, mild TR, PASP 44 mmHg
Echo 12/07/2024: EF 60% , nl RV size and function. Mild aortic stenosis with mean gradient of 12, moderate to severe TR with PA pressure 71.
Plan:
Acute on chronic HFpEF
-Volume assessment is challenging given her body habitus
-Weight has decreased with IV Lasix; weight today by standing scale 155 pounds. Likely weight yesterday by bed scale at 160 pounds was inaccurate. Standing scale weight on 928 was 157.
-She has chronic renal insufficiency with increasing creatinine today 1.8.
-Will hold further Lasix today, received IV Lasix 40 mg this morning.
-Repeat proBNP.
-Decision will be made pending further diuresis today and creatinine tomorrow to give an additional dose of 40 mg IV Lasix on 12 13 or transition to oral Lasix at increased dose of 40 mg once daily. Patient had been on 20 mg of Lasix daily as an
outpatient.
-GDMT has been limited: dizziness on Aldactone in past, not chronically on BB therapy due to bradycardia, not chronically on SGLT2 inhibitor due to frequent UTIs
-Patient had been on outpatient losartan which is currently held due to acute renal insufficiency
-Blood pressures are overall better controlled on hydralazine 100 mg twice daily and new addition of Imdur 30 mg daily.
-Echo here shows NL LVEF with severe range PASP; suspect sleep apnea and ideally would recommend outpatient evaluation with pulmonary
- Evaluate for home O2 needs
Paroxysmal atrial fibrillation currently in sinus rhythm
-Outpatient dose of amiodarone 100 mg daily was continued on admission; Increased to 200 mg daily due to recurrent atrial arrhythmia.
-New Eliquis 2.5 mg twice daily
Small right lower lobe subsegmental PE with history of prior DVT. Patient also has a history of subdural hematoma around 2019.
-Patient is not chronically on OAC due to a previous subdural hematoma, but Tolerated heparin gtt for a small right-sided PE diagnosed on admission.
-Transition from IV heparin to Eliquis 2.5 mg p.o. twice daily on 12/08
Discharge planning per primary
Progress Note - Smoke And Flame Specialist
Subjective
Date of Service: December 12, 2024
Seen and examined sitting out of bed to chair with nasal cannula O2. No overnight events.
Objective
Labs:
12/12/24 07:25
12/12/24 07:25
Labs
Hgb 10.7 g/dL (12.0-16.0) L 12/12/24 07:25
Hct 34.0 % (37.0-47.0) L 12/12/24 07:25
Plt Count 182 10^3/uL (130-400) 12/12/24 07:25
APTT Cancelled 12/08/24 20:00
Sodium 139 mmol/L (135-145) 12/12/24 07:25
Potassium 3.6 mmol/L (3.5-5.1) 12/12/24 07:25
BUN 57 mg/dl (7-17) H 12/12/24 07:25
Creatinine 1.8 mg/dL (0.6-1.0) H 12/12/24 07:25
Glucose 95 mg/dl (70-99) 12/12/24 07:25
Vital Signs and I&O:
Vital Signs
Temp Pulse Resp BP Pulse Ox
97.8 F 62 16 110/56 94
12/12/24 07:05 12/12/24 09:31 12/12/24 07:05 12/12/24 09:31 12/12/24 07:05
Vital Signs
Temp Pulse Resp BP Pulse Ox
97.8 F 62 16 110/56 94
12/12/24 07:05 12/12/24 09:31 12/12/24 07:05 12/12/24 09:31 12/12/24 07:05
Intake & Output
12/10/24 12/11/24 12/12/24 12/13/24
06:59 06:59 06:59 06:59
Intake Total 264 / 264 960 / 960 1080 / 1080
Output Total 300 / 300 100 / 100 275 / 275
Balance -36 / -36 860 / 860 805 / 805
Physical Exam
Physical Exam
General: No acute distress, frail 84-year-old female on nasal cannula O2
Heart: Regular, positive S1/S2, 1/6 SM
Lungs: Bronchovesicular breath sounds with coarse rhonchi.
Abd: Positive BS, NT/ND, neg rebound/rigidity/guarding
Ext: No edema.l
--- NOTE | 2024-12-12 16:07 | CM ---
Addendum entered by Eunice Bhatti 12/12/24 16:24:
Pt woke up and CM was able to review DC plan with her.
Original Note:
Reviewed chart. Attempted multple times to meet with pt; she has been asleep and difficult to arouse verbally. Medication management for CHF ongoing. Qualified for home O2 Pt is stable. Update to discharge plan.
Plan: DC ot home with home O2 [facility]
[2024-12-12] MEDS: LIPITOR 40 MG PO (17:32)
[2024-12-12] MEDS: ARICEPT 10 MG PO (21:07)
[2024-12-12] MEDS: DESYREL 25 MG PO (21:07)
[2024-12-12] MEDS: NEURONTIN 300 MG PO (21:07)
[2024-12-13 03:28] VITALS: BP 97/47
[2024-12-13 06:00] VITALS: BMI 30.1
[2024-12-13 07:00] VITALS: BP 139/59
[2024-12-13 08:15] LABS: Hematocrit 33.3 % (37.0-47.0); Hemoglobin 10.4 g/dL (12.0-16.0); Mean Corp Hgb Conc. 31.2 g/dL (33.0-37.0); Mean Corpuscular Volume 99.4 fL (81.0-99.0); Platelet Count 168 10^3/uL (130-400); Red Cell Dist. Width 14.5 % (11.5-14.5)
[2024-12-13] MEDS: NAMENDA 5 MG PO (08:43)
[2024-12-13] MEDS: ELIQUIS 2.5 MG PO (08:43)
[2024-12-13] MEDS: TYLENOL 325 MG PO (08:43)
[2024-12-13] MEDS: VITAMIN D3 (cholecalciferol) 25 MCG PO (08:43)
[2024-12-13] MEDS: DETROL LA 2 MG PO (08:43)
[2024-12-13] MEDS: PACERONE 200 MG PO (08:44)
[2024-12-13] MEDS: IMDUR (EXTENDED RELEASE) 30 MG PO (08:44)
[2024-12-13] MEDS: VITAMIN B-12 1000 MCG PO (08:44)
[2024-12-13 09:04] LABS: Blood Urea Nitrogen 57 mg/dl (7-17); Calcium 9.1 mg/dl (8.4-10.2); Carbon Dioxide 35 mmol/L (22-30); Chloride 99 mmol/L (98-107); Estimated Creatinine Clearance 21 ml/min; Glucose 93 mg/dl (70-99); Magnesium 2.4 mg/dl (1.6-2.3); Potassium 3.8 mmol/L (3.5-5.1); Sodium 139 mmol/L (135-145); eGFR 29.02
[2024-12-13] MEDS: APRESOLINE PO (09:11)
[2024-12-13] MEDS: APRESOLINE 50 MG PO (09:13)
--- NOTE | 2024-12-13 09:41 | W.PN.HOSP.TC ---
Addendum entered and electronically signed by Rere Hansen MD 12/13/24 09:59:
Noted hydralazine readjusted back to home dose at 50 mg BID
Original Note:
Today's Communication/Plan
-
see A/P
Assessment / Plan
Assessment / Plan
A/P:
# Acute on chronic HFpEF
# Acute hypoxic respiratory insufficiency secondary to above
BNP 6700
Chest x-ray showed mild pulmonary vascular congestion
Echo from June showed EF 60 to 65%, eccentric LVH, stage I diastolic
Repeat echo 12/07 with EF 55%. Aortic stenosis
Currently on 1-2L NC. Repeat home O2 evaluation 12/12 still indicated pt with need for home O2.
Patient is in need of oxygen at 2 liters/minute via nasal cannula continuously due to pulse oximetry of 85% on room air at rest.
Oxygen will help to improve hypoxemia. Patient is mobile within the home. DuoNeb therapy has been tried and is ineffective in treating hypoxemia related symptoms. Oxygen is needed to improve symptoms.
IV Lasix 40 mg BID to transition to oral Lasix likely today 12/13/2024.
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
Continue TUMBLE TAILSTOCK TURRET LATHE OPERATOR hydralazine, increased to 100 mg BID (TUMBLE TAILSTOCK TURRET LATHE OPERATOR 50 mg BID)
Added Imdur 30 mg daily
Cont TUMBLE TAILSTOCK TURRET LATHE OPERATOR amiodarone
Cardiology following
# Small right lower lobe subsegmental thromboembolus, likely from sedentary status
# History of prior DVT
Pt with history of subdural hematoma around 2019 per spouse.
Proceed with OAC with caution in setting of pt's age and history of hematoma
Per cardiology, initiated Eliquis 2.5 mg twice daily
Patient to follow-up outpatient
# History of frequent UTIs
UA noted, urine culture without significant growth
# Paroxysmal atrial fibrillation
Went into A-fib, now in normal sinus
Continue amiodarone
Per cardiology, initiated Eliquis 2.5 mg twice daily
# CAD
# Essential hypertension
# Breast cancer
# History of CVA
Continue statin
# CKD stage 4
Baseline renal function around 1.6
monitor BMP
# History of cognitive defects
Continue memantine
DNR/DNI
DVT prophylaxis�eliquis
Dispo: PT cleared for HH
called to update, call not answered
Anticipated Discharge: Today
Subjective/Interval History
-
Date of Service: December 13, 2024
Objective Data
-
Labs:
Laboratory Results
12/13/24
07:41
WBC 5.1
Hgb 10.4 L
Hct 33.3 L
Plt Count 168
Sodium 139
Potassium 3.8
Chloride 99
Carbon Dioxide 35 H
BUN 57 H
Creatinine 1.7 H
Glucose 93
Calcium 9.1
Vital Signs:
Vital Signs
Temp Pulse Resp BP Pulse Ox
36.9 C 67 16 139/59 94
12/13/24 07:00 12/13/24 07:00 12/13/24 07:00 12/13/24 07:00 12/13/24 07:00
I&O
12/12/24 12/13/24 12/14/24
06:59 06:59 06:59
Intake Total 1080 / 1080 1350 / 1350
Output Total 275 / 275 600 / 600
Balance 805 / 805 750 / 750
--- NOTE | 2024-12-13 10:28 | VNURNOTE ---
Addendum entered by Mary Barrera RN 12/13/24 13:35:
Confirmed with [employer] that portable 02 tank delivered to bedside.
Original Note:
Chart reviewed. 02 Rx, clinicals faxed to [facility] rep ph # [phone]. Faxed to [phone].
--- NOTE | 2024-12-13 10:42 | W.PN.CARDCBS ---
Today's Communication / Plan
-
Resume oral Lasix at 40 mg daily
Stable for discharge from my perspective
Impression / Plan
-
Primary Fiber Optics Engineer: Dr. Bello
Assessment:
Presentation with SOB
Acute hypoxic respiratory insufficiency
Acute on chronic HFimpEF
Small R PE
Prolonged QTc
Recovered CM
Paroxysmal a-fib status post ablation, not on anticoagulation
History of CVA (Subdural hematoma status post craniotomy)
CKD stage IV
Dementia
History of right-sided breast cancer s/p lumpectomy, chemo, radiation
History of R DVT
Bilateral knee replacements
History of frequent UTIs
DNR code status
ECHO 07/10/24: EF 60 to 65%, no regional wall motion abnormalities noted, moderate concentric LVH, stage I diastolic dysfunction, mitral sclerosis, mild MR, aortic sclerosis, mild AR, mild TR, PASP 44 mmHg
Echo 12/07/2024: EF 60% , nl RV size and function. Mild aortic stenosis with mean gradient of 12, moderate to severe TR with PA pressure 71.
Plan:
Acute on chronic HFpEF
-Volume assessment is challenging given her body habitus
-Weight has decreased with IV Lasix; weight today by standing scale 155 pounds. Likely weight yesterday by bed scale at 160 pounds was inaccurate. Standing scale weight on 928 was 157.
-She has chronic renal insufficiency with increasing creatinine today 1.8.
-Start Lasix 40 mg once daily. Patient had been on 20 mg of Lasix daily as an outpatient.
-GDMT has been limited: dizziness on Aldactone in past, not chronically on BB therapy due to bradycardia, not chronically on SGLT2 inhibitor due to frequent UTIs
-Patient had been on outpatient losartan which is currently held due to acute renal insufficiency
-Blood pressures are overall better controlled on hydralazine 50 mg twice daily and new addition of Imdur 30 mg daily.
-Echo here shows NL LVEF with severe range PASP; suspect sleep apnea and ideally would recommend outpatient evaluation with pulmonary
- Evaluate for home O2 needs
Paroxysmal atrial fibrillation currently in sinus rhythm
-Outpatient dose of amiodarone 100 mg daily was continued on admission; Increased to 200 mg daily due to recurrent atrial arrhythmia.
-New Eliquis 2.5 mg twice daily
Small right lower lobe subsegmental PE with history of prior DVT. Patient also has a history of subdural hematoma around 2019.
-Patient is not chronically on OAC due to a previous subdural hematoma, but Tolerated heparin gtt for a small right-sided PE diagnosed on admission.
-Transition from IV heparin to Eliquis 2.5 mg p.o. twice daily on 12/08
Stable for discharge from my perspective. We will sign off. Outpatient follow-up arranged.
Recommended cardiac meds on discharge:
Lasix 40 mg daily
Atorvastatin 40 mg daily
Amiodarone 200 mg daily
Eliquis 2.5 mg daily
Imdur 30 mg daily
Hydralazine 50 mg twice daily
Progress Note - Fiber Optics Engineer
Subjective
Date of Service: December 13, 2024
No acute overnight events. Patient is out of bed to chair resting comfortably. No cardiac complaints. Still requiring supplemental oxygen.
Objective
Labs:
12/13/24 07:41
12/13/24 07:41
Labs
Hgb 10.4 g/dL (12.0-16.0) L 12/13/24 07:41
Hct 33.3 % (37.0-47.0) L 12/13/24 07:41
Plt Count 168 10^3/uL (130-400) 12/13/24 07:41
APTT Cancelled 12/08/24 20:00
Sodium 139 mmol/L (135-145) 12/13/24 07:41
Potassium 3.8 mmol/L (3.5-5.1) 12/13/24 07:41
BUN 57 mg/dl (7-17) H 12/13/24 07:41
Creatinine 1.7 mg/dL (0.6-1.0) H 12/13/24 07:41
Glucose 93 mg/dl (70-99) 12/13/24 07:41
Vital Signs and I&O:
Vital Signs
Temp Pulse Resp BP Pulse Ox
98.5 F 67 16 139/59 94
12/13/24 07:00 12/13/24 07:00 12/13/24 07:00 12/13/24 07:00 12/13/24 07:00
Vital Signs
Temp Pulse Resp BP Pulse Ox
98.5 F 67 16 139/59 94
12/13/24 07:00 12/13/24 07:00 12/13/24 07:00 12/13/24 07:00 12/13/24 07:00
Intake & Output
12/11/24 12/12/24 12/13/24 12/14/24
06:59 06:59 06:59 06:59
Intake Total 960 / 960 1080 / 1080 1350 / 1350
Output Total 100 / 100 275 / 275 600 / 600
Balance 860 / 860 805 / 805 750 / 750
Physical Exam
Physical Exam
Gen: NAD, AA
HEENT: NC/AT, sclera anicteric
Neck: No JVD
CV: RRR, NL s1/s2, no M/R/G
Lungs: CTAB on 2L NC
Abd: S/ND
Ext: No LE edema
Skin: Warm, dry
Neuro: Non-focal
--- NOTE | 2024-12-13 11:09 | CM ---
Chart reviewed. Met with pt bedside. IMM given and placed on chart. Pt with O2 on. [facility] has arranged for home O2. Reinforced with pt that she cannot leave until she received the portable O2 tank.
Plan: DC home with home O2 and [facility] services.
[2024-12-13 11:10] VITALS: BP 114/50
--- NOTE | 2024-12-13 12:04 | W.DCSUMMARY ---
Discharge Summary
Discharge Data
Date of Admission: 12/06/24
Date of Discharge: 12/13/24
Total time spent discharging patient (in min): 40
-
Pending Results: No
Hospital Course
Principal Diagnosis:
Acute on chronic HFpEF
Small right lower lobe subsegmental thromboembolus, likely from sedentary status
Acute hypoxic respiratory insufficiency secondary to above
Chronic Diagnoses:�
CAD
Paroxysmal atrial fibrillation
Essential hypertension
Breast cancer
History of CVA
History of subdural hematoma around 2020 per spouse.
CKD stage 4, baseline creatinine around 1.6
Cognitive impairment, continue memantine
History of prior DVT
Consultations:�
Cardiology
Procedures:�
None
Clinical course:�
This is a 84-year-old female, with past medical history as stated above, who presented with shortness of breath.
Problem 1:
Acute on chronic HFpEF with acute hypoxic respiratory insufficiency.
Her BNP was at 6700 on admission.
Her chest x-ray showed mild pulmonary vascular congestion.
Her Echo this admission 12/07 showed an EF of 55%, aortic stenosis.
She received IV Lasix 40 mg twice daily while in the hospital, and can continue with oral Lasix 40 mg daily following discharge.
Her prior to admission losartan was stopped. She can continue with prior to admission hydralazine 50 mg twice daily, and Imdur 30 mg daily was added this admission.
She was placed on 2 L nasal cannula for O2 support, and can continue going forward as she continued to require O2 support from home O2 assessment.
Problem 2:
Small right lower lobe subsegmental thromboembolus, likely from sedentary status.
Given she has history of subdural hematoma around 2020 per spouse, she was started with oral anticoagulation with caution.
She was initiated with Eliquis 2.5 mg twice daily which she can continue going forward.
Problem 3:
Paroxysmal atrial fibrillation.
She can continue with prior to admission amiodarone.
Eliquis 2.5 mg twice daily was started this admission.
As for the rest of her medical problems, they were stable during her hospital stay.
Discharge Plan
-
Patient Disposition: Home with Home Care
Discharge Diagnosis/Procedures: Acute on chronic heart failure (HFpEF);
Acute hypoxic respiratory insufficiency (on 2L NC);
Small right lower lobe subsegmental PE likely from sedentary status
Condition: Fair
Diet: As tolerated and Restrict fluids to 48 oz
Activity: As tolerated
Driving Restrictions: As prior to admission
Blood Work: BMP in 1 week, result to PCP
Wound Care: Wound Care Instructions
Sacrum-clean with saline, silicone border foam, change q 3 days and prn loosened dressing.
LLE-clean with saline, adaptic, alginate, silicone border foam, change q 2-3 days and prn looosened dressing.
Bilateral knee high Tubigrip; remove at bedtime; reapply every morning.
Pressure redistributing chair cushion (i.e. Air chair cushion).
Frequent turning and repositioning.
Elevate heels off bed with pillow.
Follow up at wound care center call for an appointment.
Instructions: *[facility] Heart Failure Instructions
Referrals:
Anshu Kate MD [Family Provider, Family Practice] - in less than 1 week
Additional Discharge Medication Instructions: Take lasix 40 mg daily
Stop Losartan
Added Imdur 30 mg daily this admission.
Initiated Eliquis 2.5 mg twice daily for your right lower lobe subsegmental PE
Prescriptions:
New
Eliquis 2.5 mg Tablet
2.5 mg PO BID Qty: 60 0RF
isosorbide mononitrate 30 mg Tablet Extended Release 24 Hr
30 mg PO DAILY Qty: 30 0RF
(DME) BMP
See Rx Instructions .Route .MEDSUPPLY Qty: 1 0RF
Rx Instructions:
12/18 - 12/22, result to PCP
# acute heart failure
Continued
amiodarone [Pacerone] 200 MG tablet
100 mg PO DAILY 0RF
atorvastatin 40 mg Tablet
40 mg PO QPM
solifenacin 10 mg Tablet
10 mg PO DAILY
trazodone 50 MG tablet
25 mg PO HS Qty: 0 0RF
memantine 5 mg tablet
5 mg PO DAILY 0 Days Qty: 30 0RF
acetaminophen [Tylenol] 325 mg Tablet
325 mg PO BID
donepezil 10 mg Tablet
10 mg PO HS
cyanocobalamin (vitamin B-12) 1,000 mcg Tablet
1,000 mcg PO DAILY
gabapentin 300 mg Capsule
300 mg PO HS
cranberry extract 250 mg Tablet
250 mg PO DAILY
cholecalciferol (vitamin D3) [Vitamin D3] 25 mcg (1,000 unit) Tablet
25 mcg PO DAILY
hydralazine 50 mg Tablet
50 mg PO BID
Changed
furosemide 20 mg Tablet
40 mg PO DAILY Qty: 60 0RF
Discontinued
losartan 25 mg Tablet
25 mg PO DAILY Qty: 30 0RF
Discharge Orders:
Discharge Patient (As Directed); Ordered 12/13/24
Ordered By: Rere Hansen
Discharge Date and Time
Print Language: BERMUDIAN
[2024-12-13] MEDS: LASIX 40 MG PO (12:57)
[2024-12-13 14:30] VITALS: BP 118/52
[2024-12-13] MEDS: FLUZONE HIGH-DOSE 2025-26 0.5 ML IM (14:40)
== END 2024-12-13 15:43 | disposition home health service (06) | DRG 175 ==
LOC: 4 EAST ACU 13:48
PROVIDERS: Internal Medicine; Internal Medicine Cardiovascular Disease; ADMITTING PHYSICIAN Hospitalist; ATTENDING PHYSICIAN Internal Medicine; CONSULT PHYSICIAN Nuclear Medicine Nuclear Cardiology; EMERGENCY PHYSICIAN Emergency Medicine; FAMILY PHYSICIAN Family Medicine
PROC: 3E02340 Introduction of Influenza Vaccine into Muscle, Percutaneous Approach (ICD-10-PCS; 2024-12-13)
DX: I26.93 Single subsegmental thrombotic pulmonary embolism without acute cor pulmonale (principal); I50.33 Acute on chronic diastolic (congestive) heart failure; I13.0 Hypertensive heart and chronic kidney disease with heart failure and stage 1 through stage 4 chronic kidney disease, or unspecified chronic kidney disease; N18.4 Chronic kidney disease, stage 4 (severe); N39.0 Urinary tract infection, site not specified; I95.9 Hypotension, unspecified; I25.10 Atherosclerotic heart disease of native coronary artery without angina pectoris; F03.90 Unspecified dementia, unspecified severity, without behavioral disturbance, psychotic disturbance, mood disturbance, and anxiety; B96.5 Pseudomonas (aeruginosa) (mallei) (pseudomallei) as the cause of diseases classified elsewhere; G62.9 Polyneuropathy, unspecified; R06.89 Other abnormalities of breathing; R09.02 Hypoxemia; I05.8 Other rheumatic mitral valve diseases; I35.0 Nonrheumatic aortic (valve) stenosis; I48.0 Paroxysmal atrial fibrillation; K21.9 Gastro-esophageal reflux disease without esophagitis; Z96.653 Presence of artificial knee joint, bilateral; Z66 Do not resuscitate; Z87.891 Personal history of nicotine dependence; Z90.710 Acquired absence of both cervix and uterus; Z86.73 Personal history of transient ischemic attack (TIA), and cerebral infarction without residual deficits; Z86.718 Personal history of other venous thrombosis and embolism; Z87.440 Personal history of urinary (tract) infections; Z85.3 Personal history of malignant neoplasm of breast; Z88.2 Allergy status to sulfonamides; Z88.8 Allergy status to other drugs, medicaments and biological substances; Z79.899 Other long term (current) drug therapy; Z23 Encounter for immunization; Z92.21 Personal history of antineoplastic chemotherapy; Z92.3 Personal history of irradiation
CPT/HCPCS: 71045; 71275; 80048; 80053; 81003; 81015; 83735; 83880; 85025; 85027; 85730; 87086; 90662; 93005; 93306; 93970; 97116; 97163; 99291; G0008; Q9967

== ENCOUNTER 2024-12-18 14:14 | Emergency (ER) | payer MEDICARE, SELFPAY ==
[2024-12-18] VITALS (12 sets, daily range): BP systolic 120–189; BP diastolic 54–93
[2024-12-18 14:51] LABS: Hematocrit 33.2 % (37.0-47.0); Hemoglobin 10.3 g/dL (12.0-16.0); Mean Corp Hgb Conc. 31.0 g/dL (33.0-37.0); Mean Corpuscular Volume 99.7 fL (81.0-99.0); Nucleated Red Blood Cells % 0 %; Platelet Count 157 10^3/uL (130-400); Red Cell Dist. Width 14.5 % (11.5-14.5)
[2024-12-18 15:39] LABS: ALT (SGPT) 13 U/L (0-35); AST (SGOT) 23 U/L (14-36); Albumin 3.7 g/dl (3.5-5.0); Alkaline Phosphatase 61 U/L (38-126); Blood Urea Nitrogen 54 mg/dl (7-17); Calcium 9.0 mg/dl (8.4-10.2); Carbon Dioxide 33 mmol/L (22-30); Chloride 105 mmol/L (98-107); Glucose 157 mg/dl (70-99); Potassium 3.7 mmol/L (3.5-5.1); Sodium 143 mmol/L (135-145); Total Protein 6.2 g/dl (6.3-8.2); eGFR 27.10
--- NOTE | 2024-12-18 18:15 | ED.GENMED ---
History of Present Illness
General
Chief Complaint: Breathing Problem
Source: patient, spouse and family
Exam Limitations: none
Time Seen by Provider: 12/18/24 17:40
Nursing documentation reviewed up to this point in time: agreed with
History of Present Illness
History of Present Illness:
84-year-old female past medical history of atrial fibrillation, CHF, CAD, previous DVT PE currently on Eliquis presenting to the emergency department after an episode where she was sleeping heavier than usual was slightly lightheaded and found have
a pulse ox that was slightly low at home. This improved after increasing her oxygen. The did admit that there was a large amount of tubing and feels that she may not have been receiving oxygen as appropriate. She is now back to baseline
she denies any current symptoms she denies any symptoms that she was aware of at any point. Denies any chest pain noticeable shortness of breath nausea vomiting or fevers.
Past History
Past History
ED Past Medical History: Arrthythmia (Afib), CAD, Cancer, CHF, CVA, GERD, HTN, Renal failure, Valvular disease and Other (Dementia, neuropathy)
ED Past Surgical History: Appendectomy, Cardiac (Ablation), Gynecological (Hysterectomy) and Orthopedic (Bilateral knee replacement)
Social History
Tobacco: Former smoker
Alcohol: Occasional
Drug: None
Personal: (Seperated)
Living: with family
Employment: Not employed
Family History
Family History: CAD
Review of Systems
Review of Systems
Allergies reviewed?: Yes
All Other Systems: ROS reviewed and negative except as documented in HPI and ROS
Phy Exam
Physical Exam
Physical Exam:
GENERAL: Alert , in no apparent distress
EYE: pupils equal and reactive
NECK: Supple, no significant adenopathy.
ENT: o/p clr, mmm.
CARDIAC: Regular rate and rhythm .
LUNGS: Clear breath sounds bilaterally, no acute respiratory distress, no wheezes/rales/rhonchi
ABDOMEN: Soft, without focal tenderness, no r/g, no cvat
NEUROLOGICAL: Alert and oriented, no focal neuro deficits
SKIN: Warm and dry, skin intact.
MUSCULOSKELETAL: No edema, well perfused.
PSYCH: Normal and appropriate interaction.
Scores
Heart Failure Risk
Heart Failure Risk Score: Not Applicable
Course
Orders/Labs/Results
Orders:
Orders
12/18/24 14:20
Electrocardiogram (*1) Urgent
Reason for Study: Shortness of Breath
EKG- Treatment ONCE
12/18/24 14:37
CMP [Comprehensive Metabolic Panel] Urgent
Complete Blood Count/With Diff Urgent
12/18/24 17:53
Chest [CR Chest - 2 Views ] Urgent
Comment:
Reason For Exam: low pulse ox
12/18/24 18:02
BNP [NT-proBNP] Urgent
Abnormal Lab Results
12/18/24
14:37
RBC 3.33 L 10^6/uL
(4.20-5.40)
Hgb 10.3 L g/dL
(12.0-16.0)
Hct 33.2 L %
(37.0-47.0)
MCV 99.7 H fL
(81.0-99.0)
MCHC 31.0 L g/dL
(33.0-37.0)
MPV 10.8 H fL
(7.4-10.4)
Absolute Lymphs (auto) 0.9 L 10^3/uL
(1.2-3.4)
Lymphocytes % 15.6 L %
(20.5-51.1)
Monocytes % 10.8 H %
(1.7-9.3)
Carbon Dioxide 33 H mmol/L
(22-30)
BUN 54 H mg/dl
(7-17)
Creatinine 1.8 H mg/dL
(0.6-1.0)
Glucose 157 H mg/dl
(70-99)
Total Protein 6.2 L g/dl
(6.3-8.2)
12/18/24 14:37
12/18/24 14:37
Vital Signs
Initial and Last Documented VS:
Initial Vital Signs
Temp Pulse Resp BP Pulse Ox
98.6 F 55 18 120/54 94
12/18/24 14:16 12/18/24 14:16 12/18/24 14:16 12/18/24 14:16 12/18/24 14:16
Last Documented Vital Signs
Temp Pulse Resp BP Pulse Ox
98.6 F 57 17 173/58 94
12/18/24 14:16 12/18/24 18:35 12/18/24 18:35 12/18/24 18:35 12/18/24 18:17
MDM/Problems Addressed
MDM/Problems Addressed:
84-year-old female presenting to the emergency department today with concerns of an episode where she was heavily sleeping and found to have slightly low pulse ox level. On arrival here she denies any symptoms denies any symptoms at the time as
well. Vital signs are normal labs unremarkable pulse ox in the mid 90s with 2 L nasal cannula. Here pulse ox in the mid to high 90s throughout her stay asymptomatic throughout her stay. Blood pressure initially normal on arrival blood pressure
gradually increasing throughout the ER stay. She claims that she did miss her home hydralazine dose as well as Lasix. Here her BNP is below previous levels. Chest x-ray without significant acute findings. Patient was requesting to go home at
this point considering workup looks normal. Feel this is reasonable she was advised for close monitoring strict return precautions were discussed.
*Pulse Oximetry
SaO2: 94
Nasal Cannula flow liters per minute: 2
Patient hypoxic: no (95)
*Critical Care Note
Total Time (30-74mins, 75-104mins- exclusive of procedures): Not Applicable
ED Attending Note
-
Portions of this chart may have been created with voice recognition software.� Occasional wrong word or��sound alike� substitutions may have occurred due to the inherent limitations of voice recognition software.
Discharge Plan
Departure
Patient Disposition: Home (Routine Discharge)
Date of Disposition: 12/18/24
Time of Disposition: 19:23
Patient with high blood pressure during this ER visit?: No
Condition: Good
Covid-19: Not Applicable
Discharge Problem:
Shortness of breath
Instructions: Shortness of Breath (Dyspnea) (DC)
Prescriptions:
No Action
amiodarone [Pacerone] 200 MG tablet
100 mg PO DAILY 0RF
atorvastatin 40 mg Tablet
40 mg PO QPM
solifenacin 10 mg Tablet
10 mg PO DAILY
trazodone 50 MG tablet
25 mg PO HS Qty: 0 0RF
memantine 5 mg tablet
5 mg PO DAILY 0 Days Qty: 30 0RF
acetaminophen [Tylenol] 325 mg Tablet
325 mg PO BID
donepezil 10 mg Tablet
10 mg PO HS
cyanocobalamin (vitamin B-12) 1,000 mcg Tablet
1,000 mcg PO DAILY
gabapentin 300 mg Capsule
300 mg PO HS
cranberry extract 250 mg Tablet
250 mg PO DAILY
cholecalciferol (vitamin D3) [Vitamin D3] 25 mcg (1,000 unit) Tablet
25 mcg PO DAILY
hydralazine 50 mg Tablet
50 mg PO BID
Eliquis 2.5 mg Tablet
2.5 mg PO BID Qty: 60 0RF
isosorbide mononitrate 30 mg Tablet Extended Release 24 Hr
30 mg PO DAILY Qty: 30 0RF
furosemide 20 mg Tablet
40 mg PO DAILY Qty: 60 0RF
(DME) BMP
See Rx Instructions .Route .MEDSUPPLY Qty: 1 0RF
Rx Instructions:
12/18 - 12/22, result to PCP
# acute heart failure
Referrals:
Anshu Kate MD [Family Provider, [facility]]
Activity Restrictions/Additional Instructions:
You came to the emergency department today with concerns of an episode of hypoxia at home. Here you have a reassuring assessment. Please keep a close eye on your pulse ox at home as well as the oxygen delivery. Return immediately for any
worsening, new or concerning symptoms.
Interventions
Interventions:
*Risk Screen - Suicide Last Done: 12/18/24 14:16
*General Assessment Last Done: 12/18/24 14:16
*Neglect/Abuse Screening Last Done: 12/18/24 17:49
*ED- Fall Risk Assessment Last Done: 12/18/24 18:06
*ED COVID-19 Vaccine History Last Done: 12/18/24 17:49
*ED Influenza Vaccine History Last Done: 12/18/24 17:49
ED- Cardiac Assessment Last Done: 12/18/24 18:06
ED- Pulmonary Assessment Last Done: 12/18/24 18:06
Discharge Date and Time
Print Language: GREEK
== END 2024-12-18 19:46 | disposition home or self-care (01) ==
LOC: EMR 14:14
PROVIDERS: Emergency Medicine; Physician Assistant; EMERGENCY PHYSICIAN Student in an Organized Health Care Education/Training Program; FAMILY PHYSICIAN Family Medicine
DX: R06.02 Shortness of breath (principal); F03.90 Unspecified dementia, unspecified severity, without behavioral disturbance, psychotic disturbance, mood disturbance, and anxiety; I25.10 Atherosclerotic heart disease of native coronary artery without angina pectoris; I48.91 Unspecified atrial fibrillation; I11.0 Hypertensive heart disease with heart failure; I50.9 Heart failure, unspecified; K21.9 Gastro-esophageal reflux disease without esophagitis; G62.9 Polyneuropathy, unspecified; Z99.81 Dependence on supplemental oxygen; Z79.01 Long term (current) use of anticoagulants; Z86.718 Personal history of other venous thrombosis and embolism; Z86.711 Personal history of pulmonary embolism; Z86.73 Personal history of transient ischemic attack (TIA), and cerebral infarction without residual deficits; Z87.891 Personal history of nicotine dependence; Z96.653 Presence of artificial knee joint, bilateral; Z82.49 Family history of ischemic heart disease and other diseases of the circulatory system
CPT/HCPCS: 99284; 71046; 80053; 83880; 85025; 93005

== ENCOUNTER 2024-12-20 10:39 | Emergency (ER) | payer MEDICARE, SELFPAY ==
[2024-12-20 10:41] VITALS: BP 114/49
[2024-12-20 13:12] VITALS: BP 126/56
--- NOTE | 2024-12-20 13:47 | ED.GENMED ---
History of Present Illness
General
Chief Complaint: Blood Pressure Problem
Time Seen by Provider: 12/20/24 12:52
History of Present Illness
History of Present Illness:
84-year-old female with history of A-fib on Eliquis, PE, CHF, CAD, hypertension, and mitral regurgitation presents to the emergency department for evaluation of low blood pressure this morning. Patient has her blood pressure assessed every morning
and notes that there was 'a lower numbers that have ever seen'. She does endorse fatigue and lightheadedness currently. She has been compliant with all of her home medications. Was seen in this emergency department 2 days ago for shortness of
breath and workup was unremarkable.
Past History
Past History
ED Past Medical History: Arrthythmia (Afib), CAD, Cancer, CHF, CVA, GERD, HTN, Renal failure, Valvular disease and Other (Dementia, neuropathy)
ED Past Surgical History: Appendectomy, Cardiac (Ablation), Gynecological (Hysterectomy) and Orthopedic (Bilateral knee replacement)
Social History
Tobacco: Former smoker
Alcohol: Occasional
Drug: None
Personal: (Seperated)
Living: with family
Employment: Not employed
Family History
Family History: CAD
Review of Systems
Review of Systems
Allergies reviewed?: Yes
All Other Systems: ROS reviewed and negative except as documented in HPI and ROS
Phy Exam
Physical Exam
Physical Exam:
GEN: Well appearing, NAD, WDWN
HEENT: Oral mucosa moist, no scleral icterus
Cardiac: Regular rate and rhythm, no murmurs
Lung: No respiratory distress, no tachypnea, lungs clear to auscultation
MSK: No gross deformity or injuries
Skin: Good color, no pallor or jaundice, no rashes
Neuro: AO x3, moves all extremities freely
Psych: Calm, cooperative
Course
Orders/Labs/Results
Orders:
Orders
12/20/24 13:53
Complete Blood Count/No Diff Urgent
Comprehensive Metabolic Panel Urgent
12/20/24 14:31
Potassium Chloride [KCl] 40 meq PO NOW STA
Abnormal Lab Results
12/20/24
13:53
RBC 3.43 L 10^6/uL
(4.20-5.40)
Hgb 10.5 L g/dL
(12.0-16.0)
Hct 34.7 L %
(37.0-47.0)
MCV 101.2 H fL
(81.0-99.0)
MCHC 30.3 L g/dL
(33.0-37.0)
RDW 14.7 H %
(11.5-14.5)
MPV 10.8 H fL
(7.4-10.4)
Potassium 3.1 L mmol/L
(3.5-5.1)
Carbon Dioxide 39 H mmol/L
(22-30)
BUN 47 H mg/dl
(7-17)
Creatinine 2.1 H mg/dL
(0.6-1.0)
Glucose 108 H mg/dl
(70-99)
12/20/24 13:53
12/20/24 13:53
Vital Signs
Initial and Last Documented VS:
Initial Vital Signs
Temp Pulse Resp BP Pulse Ox
97.9 F 56 16 114/49 95
12/20/24 10:41 12/20/24 10:41 12/20/24 10:41 12/20/24 10:41 12/20/24 10:41
Last Documented Vital Signs
Temp Pulse Resp BP Pulse Ox
97.9 F 56 16 164/77 97
12/20/24 10:41 12/20/24 14:30 12/20/24 14:30 12/20/24 14:15 12/20/24 14:30
MDM/Problems Addressed
MDM/Problems Addressed:
Patient appears clinically stable, I suspect her hypokalemia and abnormal renal function coupled with hypotension is most likely driven by overdiuresis given recent increase in her Lasix. Will decrease her dosage for the next 2 days before resuming
40 mg twice daily and have close follow-up with cardiology given her tenuous fluid status.
*Pulse Oximetry
SaO2: 96
Nasal Cannula flow liters per minute: 4
Patient hypoxic: no
*Critical Care Note
Total Time (30-74mins, 75-104mins- exclusive of procedures): Not Applicable
ED Attending Note
-
Portions of this chart may have been created with voice recognition software.� Occasional wrong word or��sound alike� substitutions may have occurred due to the inherent limitations of voice recognition software.
Discharge Plan
Departure
Patient Disposition: Home (Routine Discharge)
Date of Disposition: 12/20/24
Time of Disposition: 14:31
Patient with high blood pressure during this ER visit?: No
Discharge Problem:
Acute dehydration, Labile hypertension, Acute hypokalemia
Instructions: *[facility] Heart Failure Instructions
Prescriptions:
New
potassium chloride [Klor-Con 10] 10 mEq tablet extended release
10 meq PO DAILY Qty: 60 0RF
Rx Instructions:
Take once or twice daily along with furosemide
No Action
amiodarone [Pacerone] 200 MG tablet
100 mg PO DAILY 0RF
atorvastatin 40 mg Tablet
40 mg PO QPM
solifenacin 10 mg Tablet
10 mg PO DAILY
trazodone 50 MG tablet
25 mg PO HS Qty: 0 0RF
memantine 5 mg tablet
5 mg PO DAILY 0 Days Qty: 30 0RF
acetaminophen [Tylenol] 325 mg Tablet
325 mg PO BID
donepezil 10 mg Tablet
10 mg PO HS
cyanocobalamin (vitamin B-12) 1,000 mcg Tablet
1,000 mcg PO DAILY
gabapentin 300 mg Capsule
300 mg PO HS
cranberry extract 250 mg Tablet
250 mg PO DAILY
cholecalciferol (vitamin D3) [Vitamin D3] 25 mcg (1,000 unit) Tablet
25 mcg PO DAILY
hydralazine 50 mg Tablet
50 mg PO BID
Eliquis 2.5 mg Tablet
2.5 mg PO BID Qty: 60 0RF
isosorbide mononitrate 30 mg Tablet Extended Release 24 Hr
30 mg PO DAILY Qty: 30 0RF
furosemide 20 mg Tablet
40 mg PO DAILY Qty: 60 0RF
(DME) BMP
See Rx Instructions .Route .MEDSUPPLY Qty: 1 0RF
Rx Instructions:
12/18 - 12/22, result to PCP
# acute heart failure
Referrals:
Anshu Kate MD [Family Provider, Family Practice]
Activity Restrictions/Additional Instructions:
Do not take your nighttime dose of lasix today OR tomorrow
Resume your normal 20mg of lasix on Wednesday
I have prescribed you potassium supplement to take with your lasix every day
Follow up with your [facility] administrator
Interventions
Interventions:
*Risk Screen - Suicide Last Done: 12/20/24 13:55
*General Assessment Last Done: 12/20/24 13:55
*Neglect/Abuse Screening Last Done: 12/20/24 13:55
*ED- Fall Risk Assessment Last Done: 12/20/24 13:55
ED- Cardiac Assessment Last Done: 12/20/24 13:55
ED- Neurological Assessment Last Done: 12/20/24 13:55
ED- Pulmonary Assessment Last Done: 12/20/24 13:55
Discharge Date and Time
Print Language: HUNGARIAN
[2024-12-20 14:07] LABS: Hematocrit 34.7 % (37.0-47.0); Hemoglobin 10.5 g/dL (12.0-16.0); Mean Corp Hgb Conc. 30.3 g/dL (33.0-37.0); Mean Corpuscular Volume 101.2 fL (81.0-99.0); Platelet Count 167 10^3/uL (130-400); Red Cell Dist. Width 14.7 % (11.5-14.5)
[2024-12-20 14:15] VITALS: BP 164/77
[2024-12-20 14:17] LABS: ALT (SGPT) 12 U/L (0-35); AST (SGOT) 18 U/L (14-36); Albumin 3.8 g/dl (3.5-5.0); Alkaline Phosphatase 77 U/L (38-126); Blood Urea Nitrogen 47 mg/dl (7-17); Calcium 9.0 mg/dl (8.4-10.2); Carbon Dioxide 39 mmol/L (22-30); Chloride 103 mmol/L (98-107); Glucose 108 mg/dl (70-99); Potassium 3.1 mmol/L (3.5-5.1); Sodium 145 mmol/L (135-145); Total Protein 6.6 g/dl (6.3-8.2); eGFR 22.52
[2024-12-20 15:00] VITALS: BP 179/77
[2024-12-20] MEDS: KCL 40 MEQ PO (15:01)
== END 2024-12-20 15:11 | disposition home or self-care (01) ==
LOC: EMR 10:39
PROVIDERS: Physician Assistant; EMERGENCY PHYSICIAN Emergency Medicine; FAMILY PHYSICIAN Family Medicine
DX: E86.0 Dehydration (principal); I11.0 Hypertensive heart disease with heart failure; I50.9 Heart failure, unspecified; E87.6 Hypokalemia; F03.90 Unspecified dementia, unspecified severity, without behavioral disturbance, psychotic disturbance, mood disturbance, and anxiety; I25.10 Atherosclerotic heart disease of native coronary artery without angina pectoris; I48.91 Unspecified atrial fibrillation; I34.0 Nonrheumatic mitral (valve) insufficiency; K21.9 Gastro-esophageal reflux disease without esophagitis; G62.9 Polyneuropathy, unspecified; Z79.01 Long term (current) use of anticoagulants; Z86.73 Personal history of transient ischemic attack (TIA), and cerebral infarction without residual deficits; Z86.711 Personal history of pulmonary embolism; Z87.891 Personal history of nicotine dependence; Z96.653 Presence of artificial knee joint, bilateral; Z82.49 Family history of ischemic heart disease and other diseases of the circulatory system
CPT/HCPCS: 99283; 80053; 85027

== ENCOUNTER → 2025-02-15 12:48 | Outpatient (REF) | payer MEDICARE, SELFPAY | LOC: HWRAD 12:48 | PROVIDERS: ATTENDING PHYSICIAN Orthopaedic Surgery; FAMILY PHYSICIAN Family Medicine | DX: M19.012 Primary osteoarthritis, left shoulder (principal) | CPT/HCPCS: 73200 ==